=== PATIENT | female | born 1970 | race Caucasian/White ===

== ENCOUNTER 2017-12-06 06:46 | Day surgery (SDC) | payer BC ==
[~2017-12-06 06:46] MED LIST: Midazolam 1 MG/ML 2 ML SDV ONE; fentaNYL 100 MCG/2 ML SDV ONE
[2017-12-06] MEDS ORDERED: Midazolam 1 MG/ML 2 ML SDV IV ONE ×4 (06:47→08:19)
[2017-12-06] MEDS ORDERED: fentaNYL 100 MCG/2 ML SDV IV ONE ×3 (06:47→08:17)
[2017-12-06] MEDS ORDERED: Dextrose 5%-0.45% NaCl 1,000 ML IV SCH (07:15)
--- NOTE | 2017-12-06 08:59 | OR ---
DATE: 12/06/2017 PROCEDURES: Esophagogastroduodenoscopy and multiple pinch biopsies. INSTRUMENT USED: GIF-H180 Olympus video panendoscope. PREMEDICATIONS: No oral topical anesthesia used. Fentanyl 100 mcg intravenous, Versed 2 mg intravenous. Nasal O2 cannula. The procedure was done under pulse oximetry, BP recording, and process owner. INDICATION: The patient with longstanding heartburn, on PPI therapy. DESCRIPTION OF PROCEDURE: Esophagogastroduodenoscopy is performed for detection of any active erosive lesions. Martinez esophagus and/or malignancy also under consideration. H. pylori status to be determined. Endoscopic hemostasis therapy if needed. The scope was passed with ease. Adequate visualization of the esophagus was made from proximal to distal areas. No upper esophageal lesions identified. No distal esophageal stricture. No uphill or downhill esophageal varices. No Nirmala-Hart tear. No evidence of erosive esophagitis by [place] criteria. No esophageal polyp or tumor mass identified. Z-line was noted at around 34 cm distal to the oral verge. Four-quadrant biopsies were taken and sent for any histopathologic evidence of intestinal metaplasia. No proximal gastric varices noted. Gastric fundus examination by retroflexion showed no polypoid lesions. No gastric ulcer, malignant mass, or vascular ectasia identified. Duodenal bulb showed no ulcer. Visualized second part of the duodenum was unremarkable. Multiple pinch biopsies were taken from the gastric antrum and proximal body and sent for PyloriTek test for H. pylori and histopathology. No bleeding was noted from any of the visualized areas at the completion of examination. Photographs were taken of the duodenal bulb, gastric antrum, fundus, and distal esophagus. IMPRESSION: Columnar-lined distal esophagus. The patient tolerated the procedure well. [facility] /[id number]
[2017-12-06 12:11] VITALS: BP 117/79
== END 2017-12-06 10:30 | disposition home or self-care (01) ==
LOC: DL.ENDO 06:46
PROVIDERS: ATTEND Internal Medicine Gastroenterology
DX: R12 Heartburn (principal); K29.70 Gastritis, unspecified, without bleeding; K20.9 Esophagitis, unspecified; I12.9 Hypertensive chronic kidney disease with stage 1 through stage 4 chronic kidney disease, or unspecified chronic kidney disease; E11.22 Type 2 diabetes mellitus with diabetic chronic kidney disease; N18.9 Chronic kidney disease, unspecified; E66.09 Other obesity due to excess calories; E11.21 Type 2 diabetes mellitus with diabetic nephropathy; E78.5 Hyperlipidemia, unspecified; Z79.82 Long term (current) use of aspirin; Z79.899 Other long term (current) drug therapy; Z88.0 Allergy status to penicillin; Z88.1 Allergy status to other antibiotic agents; Z80.0 Family history of malignant neoplasm of digestive organs
CPT/HCPCS: 43239; 87077; J2250; J3010; J7042

== ENCOUNTER 2017-12-10 05:48 | Day surgery (SDC) | payer BC ==
[2017-12-10] MEDS ORDERED: Midazolam 1 MG/ML 2 ML SDV IV ONE ×9 (05:49→07:28)
[2017-12-10] MEDS ORDERED: fentaNYL 100 MCG/2 ML SDV IV ONE ×5 (05:49→07:23)
[2017-12-10] MEDS ORDERED: Sodium Chloride 0.9% 10 ML Syringe FLUSH PRN (06:00)
[2017-12-10] MEDS ORDERED: Dextrose 5%-0.45% NaCl 1,000 ML IV SCH (06:00)
[2017-12-10] MEDS ORDERED: fentaNYL 100 MCG/2 ML SDV ONE (06:15)
[2017-12-10] MEDS ORDERED: Midazolam 1 MG/ML 2 ML SDV ONE (06:15)
--- NOTE | 2017-12-10 08:39 | OR ---
DATE: 12/10/2017 PROCEDURE: Total colonoscopy. INSTRUMENT USED: CF-H180AL Olympus video colonoscope. PREMEDICATIONS: Fentanyl 150 mcg intravenous, Versed 5 mg intravenous. The procedure was done under pulse oximetry, BP recording, and senior housekeeper. INDICATION: The patient with high-risk family history for colon cancer. Colonoscopic examination is done for detection of any polypoid lesions and removal. Endoscopic hemostasis therapy if needed. DESCRIPTION OF PROCEDURE: Initial rectal exam was unremarkable. Rigid anoscopy was normal. The colonoscope was passed with ease. Numerous scattered diverticula were noted in the distal left colon, some wide mouthed. Photographs were taken. The colon was found to be tortuous and redundant. The examination was a bit prolonged. The scope was passed up to the ileocecal area. Photographs were taken of the normal-appearing cecum, identified by landmarks of appendiceal orifice and double-bulged ileocecal folds. No bleeding was detected from any of the areas at the commencement of the examination. The bowel preparation was found to be adequate. No stricture. No vascular ectasia. No large isolated ulcerations seen. No evidence of diffuse inflammatory bowel disease in the form of friability, contact bleeding, or ulcerations. No polyp or tumor mass identified. Probing the proximal sides of folds and flexures using adequate distention and clearing up the stool material, withdrawal of the scope was made. [id number] time over 6 minutes. No bleeding was noted from any of the visualized areas at the completion of examination. IMPRESSION: Diverticulosis. The patient tolerated the procedure well. [facility] /[id number]
[2017-12-10 08:47] LABS: ANION GAP 13.8; CHLORIDE,CL 108 mmol/L (101-111); SODIUM,NA 140 mmol/L (135-145)
--- NOTE | 2017-12-10 09:00 | LETTER ---
12/10/2017 Anca Mejia MD [address] [address] RE: BRIGHT RAY RENEE HODAN : [address] Mejia: Ms. Renee Neffedson had colonoscopic examination done this morning and she tolerated the procedure well. I herewith send a copy of the endoscopy note and photographs for your review. Thank you. Sincerely, [facility] /[id number]
--- NOTE | 2017-12-10 09:45 | PN ---
DATE: 12/10/2017 SUBJECTIVE: Has upper anterior chest pain with some radiation to the back as well as has some hoarseness. Feels a bit full in her throat. Denies any increasing shortness of breath. No headache. No dizziness. Denies any abdominal pain. OBJECTIVE: VITAL SIGNS: Stable. GENERAL: Alert and oriented. Not short of breath at rest. Some fullness noted around the neck on both sides. NECK: Supple. LUNGS: No adventitious sounds heard. HEART: S1 and S2, regular. ABDOMEN: Obese and soft. No areas of tenderness elicited. Bowel sounds are active. PLAN: CBC, CMP, troponin, and EKG. Discussed with Dr. Koo at the emergency room as to further evaluation and management. The patient acceptable. She is transferred stable to the emergency room for further evaluation and management. IMPRESSION: 1. History of systemic lupus erythematosus. 2. Colonic diverticulosis. 3. Chest pain, etiology to be determined. [facility] /[id number]
--- NOTE | 2017-12-10 09:54 | PN ---
DATE: 12/10/2017 TIME: 9:00 a.m. SUBJECTIVE: Continues to have some fullness in the neck and related chest pain. OBJECTIVE: Vital Signs: Stable. General: Alert and oriented. Neck: Crepitus noted in the neck. Lungs: Diminished breath sounds. Heart: S1 and S2, regular. Abdomen: Soft. No significant tenderness elicited. INVESTIGATIONS: Chest x-ray shows free air under the diaphragm. PLAN: Discussed with the patient, family member, as well as Dr. Koo in the emergency room. Has significant diverticulosis with deformity involving the left colon, and perforation under consideration. The patient informed of intubation and stabilization and transferred to [facility] for further specific management. The patient acceptable. [facility] /[id number]
[2017-12-10 11:06] VITALS: BP 134/89
--- NOTE | 2017-12-11 12:31 | EKG ---
12/10/2017 - BRIGHT RAYRENEE HODAN - TIME: 8:21 am. FINDINGS: EKG shows a heart rate of 73 beats per minute, sinus rhythm. [facility] /[id number]
== END 2017-12-10 08:30 | disposition other institution (70) ==
LOC: DL.ENDO 05:48
PROVIDERS: ATTEND Internal Medicine Gastroenterology
DX: Z12.11 Encounter for screening for malignant neoplasm of colon (principal); K57.30 Diverticulosis of large intestine without perforation or abscess without bleeding; E66.09 Other obesity due to excess calories; I12.9 Hypertensive chronic kidney disease with stage 1 through stage 4 chronic kidney disease, or unspecified chronic kidney disease; E11.22 Type 2 diabetes mellitus with diabetic chronic kidney disease; N18.9 Chronic kidney disease, unspecified; E78.5 Hyperlipidemia, unspecified; R80.9 Proteinuria, unspecified; N02.8 Recurrent and persistent hematuria with other morphologic changes; Z79.82 Long term (current) use of aspirin; Z88.0 Allergy status to penicillin; Z88.1 Allergy status to other antibiotic agents; Z86.010 Personal history of colon polyps; Z80.0 Family history of malignant neoplasm of digestive organs
CPT/HCPCS: 36415; 45378; 80053; 82962; 84484; 85025; 93005; J2250; J3010; J7042

== ENCOUNTER 2017-12-10 08:33 | Emergency (ER) | payer BC ==
[2017-12-10] MEDS ORDERED: Succinylcholine 200 MG/10 ML MDV IV ONE (08:34)
[2017-12-10] MEDS ORDERED: Propofol 200 MG/20 ML SDV IV ONE (08:34)
[2017-12-10] MEDS ORDERED: fentaNYL 100 MCG/2 ML SDV IV ONE (08:34)
[2017-12-10] MEDS ORDERED: Rocuronium 50 MG/5 ML Vial IV ONE (08:34)
--- NOTE | 2017-12-10 08:38 | EDM.PDOC ---
ED HPI GENERAL MEDICAL PROBLEM - General Chief Complaint: Cardiovascular Problem Stated Complaint: FROM SDS, CHEST PAINS Time Seen by Provider: 12/10/17 08:35 Source of Information: Reports: Patient, Family, Old Records, Provider (Dr. Sanders), RN, RN Notes Reviewed History Limitations: Reports: No Limitations - History of Present Illness INITIAL COMMENTS - FREE TEXT/NARRATIVE: Pt brought from same day surgery to ER at request of Dr. Sanders due to onset of chest pain, neck swelling, soreness of breath, and sensation that her " throat is closing" Pt is awake, alert, and conversant, but with a high pitched, strained, nasal sounding voice. Onset: Today Duration: Constant, Getting Worse Location: Reports: Neck, Chest, Abdomen Quality: Reports: Pressure, Sharp Severity: Severe Improves with: Reports: None Worsens with: Reports: None Context: Reports: Other (suspected bowel perf. during colonoscopy) Associated Symptoms: Reports: No Other Symptoms Chest Pain Score (Numeric/FACES): 10 - Related Data Allergies Allergy/AdvReac Type Severity Reaction Status Date / Time erythromycin lactobionate Allergy Nausea Verified 12/10/17 08:40 [From Erythrocin] Penicillins Allergy Rash Verified 12/10/17 08:40 Home Meds: Home Meds predniSONE [Jazzy] 4 mg PO ASDIRECTED 11/24/14 [History] Rosuvastatin [Crestor] 20 mg PO DAILY 11/25/14 [History] Aspirin [Halfprin] 81 mg PO BEDTIME 01/12/16 [History] Fluticasone Propionate [Flonase] 1 spray INH ASDIRECTED 12/03/17 [History] Levonorgestrel [Mirena] 1 insert IU ATDISCHARGE 12/03/17 [History] Omeprazole [Prilosec] 40 mg PO DAILY 12/03/17 [History] Pioglitazone HCl 1 tab PO DAILY 12/03/17 [History] Sodium Bicarbonate 1 tab PO ASDIRECTED 12/03/17 [History] cycloSPORINE [Cyclosporine] 2 tab PO BID 12/03/17 [History] Past Medical History HEENT History: Reports: Sinusitis Other HEENT History: 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 History: Reports: Endometriosis, Spontaneous Other SCALE INSTALLER History: HAS IUD Musculoskeletal History: Reports: SLE Other Musculoskeletal History: LUPUS IN REMISSION Neurological History: Reports: None Psychiatric History: Reports: None Endocrine/Metabolic History: Reports: None Hematologic History: Reports: Anemia, Iron Deficiency Immunologic History: Reports: SLE Other Immunologic History: in remission for 11 years (had for 8 years) Oncologic (Cancer) History: Reports: None Dermatologic History: Reports: Cellulitis Other Dermatologic History: esinophyllic cellulitis - Infectious Disease History Infectious Disease History: Reports: Chicken Pox, Shingles - Past Surgical History Head Surgeries/Procedures: Reports: None HEENT Surgical History: Reports: Adenoidectomy, Cataract Surgery, Eye Surgery, Tonsillectomy, Other (See Below) Other HEENT Surgeries/Procedures: corneal transplant Cardiovascular Surgical History: Reports: None Respiratory Surgical History: Reports: None GI Surgical History: Reports: Colonoscopy, Hernia, Inguinal Female Surgical History: Reports: Other (See Below) Other Female Surgeries/Procedures: kidney biopsy Social & Family History - Family History Family Medical History: Noncontributory - Caffeine Use Caffeine Use: Reports: Tea Other Caffeine Use: 16. oz - Living Situation & Occupation Living situation: Reports: with Family ED ROS GENERAL - Review of Systems Review Of Systems: ROS reveals no pertinent complaints other than HPI. ED EXAM, GENERAL - Physical Exam Exam: See Below Exam Limited By: No Limitations General Appearance: Alert, Anxious, Mild Distress, Obese Eye Exam: Bilateral Eye: Normal Inspection Ears: Hearing Grossly Normal Nose: Normal Inspection, Normal Mucosa, No Blood Throat/Mouth: Normal Lips, Normal Teeth, Normal Gums, Other (obese pt with small oral airway, abnormal high pitched and weak voice) Neck: Other (extensive subcutaneous emphysema of the neck to the level of the manibular face and inferior ears B/L) Respiratory/Chest: No Accessory Muscle Use, Chest Non-Tender, Decreased Breath Sounds, Crackles, Stridor (mild) Cardiovascular: Regular Rate, Rhythm GI/Abdominal: Soft, Non-Tender, No Distention, Abnormal Bowel Sounds (hypoactive ) (Female) Exam: Deferred Rectal (Female) Exam: Deferred Back Exam: Normal Inspection Extremities: Normal Inspection Neurological: Alert, Oriented, CN II-XII Intact, Normal Cognition, No Motor/ Sensory Deficits Psychiatric: Anxious Skin Exam: Warm, Dry, Intact, Normal Color, No Rash EKG INTERPRETATION EKG Date: 12/10/17 Time: 08:21 ([facility] Rhythm: Other (SR) Rate (Beats/Min): 73 [place]: LAD-Left [place] Deviation (borderline) P-Wave: Present QRS: Normal ST-T: Normal QT: Normal Comparison: NA - No Prior EKG Course - Vital Signs Last Recorded V/S: Last Vital Signs Temp 36.6 C 12/10/17 08:38 Pulse 87 12/10/17 08:38 Resp 18 12/10/17 08:38 BP 143/67 H 12/10/17 08:38 Pulse Ox 98 12/10/17 08:38 - Orders/Labs/Meds Orders: Active Orders 24 hr Category Date Time Status EKG 12 Lead [EKG Documentation Completion] [RC] STAT Care 12/10/17 08:51 Inactive Insert Bowie Catheter [Insert Urinary Catheter] [OM.PC] Care 12/10/17 09:52 Ordered Stat Urinary Catheter Assessment [RC] ASDIRECTED Care 12/10/17 09:53 Active Chest 1V Frontal [CR] Stat Exams 12/10/17 09:52 Ordered Propofol [Diprivan 100 ML] 100 ml Med 12/10/17 10:00 Active IV .TITRATE Desired Level of Sedation (RASS) [AST] Click To Edit Ot 12/10/17 09:53 Ordered Medication Orders Propofol (Diprivan 100 Ml) 100 mls @ 2.014 mls/hr IV .TITRATE DEONTE; Protocol Labs: Lab results from Same Day Surg. from this morning reviewed by me. Meds: Medications Generic Name Dose Route Start Last Admin Trade Name Freq PRN Reason Stop Dose Admin Propofol 100 mls @ 2.014 mls/hr 12/10/17 10:00 Diprivan 100 Ml IV .TITRATE DEONTE Protocol 5 MCG/KG/MIN Discontinued Medications Generic Name Dose Route Start Last Admin Trade Name Freq PRN Reason Stop Dose Admin Dexamethasone Confirm 12/10/17 09:47 Dexamethasone Administered 12/10/17 09:48 Dose 8 mg .ROUTE .STK-MED ONE Fentanyl Confirm 12/10/17 09:27 Sublimaze Administered 12/10/17 09:28 Dose 100 mcg .ROUTE .STK-MED ONE Iopamidol 100 ml 12/10/17 09:01 Isovue-300 (61%) IVPUSH 12/10/17 09:02 ONETIME ONE Midazolam HCl Confirm 12/10/17 09:27 12/10/17 09:45 Versed 1 Mg/Ml Administered 12/10/17 09:28 2 mg Dose Administration 2 mg .ROUTE .STK-MED ONE Ondansetron HCl 4 mg 12/10/17 09:37 12/10/17 09:47 Zofran IV 12/10/17 09:38 4 mg ONETIME ONE Administration - Radiology Interpretation Free Text/Narrative:: Portable CXR: extensive free intraperitoneal air and subcutaneous air at B/L flanks, and mediastinum into the neck. See Rad. report. Post intubation CXR: with ET tube apprx. 2cm above level of the alis. OG tube in stomach. - Re-Assessments/Exams Free Text/Narrative Re-Assessment/Exam: 12/10/17 Pt's airway is compromised and worsening. I feel it is necessary to intubate the pt to preserve the airway prior to transferring the pt to [facility] for surgical evaluation and access to a higher level of care. Pt intubated w/RSI with 6.5F ET tube on first attempt without complication. Departure - Departure Time of Disposition: 10:04 Disposition: DC/Tfer to Acute Hospital 02 Condition: Critical Clinical Impression: Perforated bowel, Pneumomediastinum, Compromised airway Surgical complication Qualifiers: Surgical complication system/body Area: digestive system Surgical complication type: puncture, accidental Procedure type: digestive system Qualified Code(s): K91.71 - Accidental puncture and laceration of a digestive system organ or structure during a digestive system procedure - Discharge Information Referrals: PCP,Unobtain [Primary Care Provider] - Forms: ED Department Discharge, Interfacility Transfer EMTALA - My Orders Last 24 Hours: My Active Orders 12/10/17 08:51 EKG 12 Lead [EKG Documentation Completion] [RC] STAT 12/10/17 09:52 Insert Bowie Catheter [Insert Urinary Catheter] [OM.PC] Stat Chest 1V Frontal [CR] Stat 12/10/17 09:53 Urinary Catheter Assessment [RC] ASDIRECTED Desired Level of Sedation (RASS) [AST] Click To Edit 12/10/17 10:00 Propofol [Diprivan 100 ML] 100 ml IV .TITRATE - Assessment/Plan Last 24 Hours: My Active Orders 12/10/17 08:51 EKG 12 Lead [EKG Documentation Completion] [RC] STAT 12/10/17 09:52 Insert Bowie Catheter [Insert Urinary Catheter] [OM.PC] Stat Chest 1V Frontal [CR] Stat 12/10/17 09:53 Urinary Catheter Assessment [RC] ASDIRECTED Desired Level of Sedation (RASS) [AST] Click To Edit 12/10/17 10:00 Propofol [Diprivan 100 ML] 100 ml IV .TITRATE
[2017-12-10 08:39] VITALS: BP 143/67
[2017-12-10] MEDS ORDERED: Iopamidol 612 MG/ML 100 ML Bottle IVPUSH ONE (09:01)
--- NOTE | 2017-12-10 09:12 | CR ---
Clinical history: 47-year-old female abdominal/chest pain and "air in the neck" who is status post co lonoscopy this a.m. Interpretation: AP portable chest film abnormal. Extensive free intraperitoneal air and air identified in the subcutaneous tissues both flanks as well as in the mediastinum extending into the supraclavicular regions of the neck. Normal cardiac silhouette without cephalization of vascular flow signs of alveolar edema or dependent effusion. Some patchy new bibasal or atelectasis when compared to 12 January 2016 exam. CONCLUSION: Acute perforation of the colon. Critical exam results called immediately to the emergency department provider (Dr. Koo) at 0915 ho urs.
[2017-12-10] MEDS ORDERED: fentaNYL 100 MCG/2 ML SDV ONE (09:27)
[2017-12-10] MEDS ORDERED: Midazolam 1 MG/ML 2 ML SDV ONE (09:27)
[2017-12-10] MEDS ORDERED: Ondansetron 4 MG/2 ML SDV IV ONE (09:37)
[2017-12-10] MEDS ORDERED: Dexamethasone 4 MG/ML SDV ONE (09:47)
[2017-12-10] MEDS ORDERED: Dexamethasone 4 MG/ML SDV IVPUSH ONE (09:49)
--- NOTE | 2017-12-10 10:25 | PCM.SN ---
- Free Text/Narrative Note: Intubation. ER provider requesting Pt be intubated for transfer to [facility] due to free air in abdomen and mediastinum. Pt w increasing neck circumference. Procedure explained to Pt and Pt's . Consent obtained. Pt NPO x 48 hours , previously medicated this AM with 4 mg of versed and 100 mcg fentanyl for colonoscopy. Pre ox w ambu bag, Pt medicated at 0945 with 2 mg versed, 100 mcg fentanyl, and 5 mg of zemuron. 140 mg of propofol and 70 mg of anectine Glidescope used 3 Mac blade 6.5 ETT advanced through cords , OG placed. Tube secured at 20 cm at lip. PCXR taken and placement confirmed. Pt medicated w 30 mg of zemuron. Report to [employer] [facility] care . Procedure time 0940 to 1030
--- NOTE | 2017-12-10 11:38 | CR ---
Clinical history: 47-year-old female "postintubation". Interpretation: Midline endotracheal tube tip identified distally at the level of mid T4 vertebral stephen dy (approximately 2 cm proximal to the alis), directed to the right of midline. No associated signs of lobar collapse. Patchy right middle lobe and lingular atelectasis. Note: Large volume of air extending through the mediastinum into the supraclavicular soft tissues of the neck, bilaterally. Large volume of intraperitoneal air and subcutaneous air along both flanks. Normal cardiac silhouette without alveolar edema or dependent effusion.
== END 2017-12-10 10:16 ==
LOC: DL.ED 08:33
DX: K91.71 Accidental puncture and laceration of a digestive system organ or structure during a digestive system procedure (principal); J98.2 Interstitial emphysema; K63.1 Perforation of intestine (nontraumatic); E78.00 Pure hypercholesterolemia, unspecified; I10 Essential (primary) hypertension; K21.9 Gastro-esophageal reflux disease without esophagitis; Z88.1 Allergy status to other antibiotic agents; Z88.0 Allergy status to penicillin; Z79.899 Other long term (current) drug therapy; Z79.82 Long term (current) use of aspirin
CPT/HCPCS: 31500; 71045; 96374; 96375; 99285; J0330; J1100; J2250; J2405; J2704; J3010

== ENCOUNTER 2020-03-14 21:16 | Emergency (ER) | payer BC ==
[2020-03-14 21:26] VITALS: BP 152/78; PULSE 98
[2020-03-14 22:11] LABS: ANION GAP 19.5 mEq/L (7-13)
[2020-03-14] MEDS ORDERED: Ondansetron 4 MG/2 ML SDV IVPUSH ONE ×2 (22:12→23:53)
[2020-03-14] MEDS ORDERED: Morphine 2 MG/ML SYRINGE IVPUSH ONE (22:12)
--- NOTE | 2020-03-14 22:16 | EDM.PDOC ---
ED HPI GENERAL MEDICAL PROBLEM - General Chief Complaint: Abdominal Pain Stated Complaint: SEVERE STOMACH PAIN Time Seen by Provider: 03/14/20 22:05 Source of Information: Reports: Patient History Limitations: Reports: No Limitations - History of Present Illness INITIAL COMMENTS - FREE TEXT/NARRATIVE: This 49 yo female patient reports to the ED with increased intermittent abdom inal pain. The patient reports her symptoms started today at about 1300 and have been getting worse since the onset. The patient reports she has a history of numerous abdominal surgeries due to a perforation during a colonoscopy. The patient reports she also has a history of stage 3 kidney disease (sees Dr. oGnzales). Onset: Today Onset Date: 03/14/20 Onset Time: 13:00 Duration: Getting Worse, Intermittent Location: Reports: Abdomen (near umbilicus) Quality: Reports: Ache, Sharp, Stabbing Severity: Severe Improves with: Reports: None Worsens with: Reports: None Context: Reports: Other Associated Symptoms: Reports: No Other Symptoms Abdomen Pain Score (Numeric/FACES): 4 - Related Data Allergies Allergy/AdvReac Type Severity Reaction Status Date / Time erythromycin lactobionate Allergy Nausea Verified 03/14/20 21:25 [From Erythrocin] Penicillins Allergy Rash Verified 03/14/20 21:25 Home Meds: Home Meds predniSONE [Jazzy] 4 mg PO ASDIRECTED 11/24/14 [History] Rosuvastatin [Crestor] 20 mg PO DAILY 11/25/14 [History] Aspirin [Halfprin] 81 mg PO BEDTIME 01/12/16 [History] Fluticasone Propionate [Flonase] 1 spray INH ASDIRECTED 12/03/17 [History] Levonorgestrel [Mirena] 1 insert IU ATDISCHARGE 12/03/17 [History] Omeprazole [Prilosec] 40 mg PO DAILY 12/03/17 [History] Pioglitazone HCl 1 tab PO DAILY 12/03/17 [History] cycloSPORINE [Cyclosporine] 2 tab PO BID 12/03/17 [History] clindamycin HCL [Cleocin HCl] 150 mg PO TID 05/22/18 [History] Past Medical History HEENT History: Reports: Sinusitis Other HEENT History: 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 History: HAS IUD Musculoskeletal History: Reports: SLE Other Musculoskeletal History: LUPUS IN REMISSION Neurological History: Reports: None Psychiatric History: Reports: None Endocrine/Metabolic History: Reports: None Hematologic History: Reports: Anemia, Iron Deficiency Immunologic History: Reports: SLE Other Immunologic History: in remission for 11 years (had for 8 years) Oncologic (Cancer) History: Reports: None Dermatologic History: Reports: Cellulitis Other Dermatologic History: esinophyllic cellulitis - Infectious Disease History Infectious Disease History: Reports: Chicken Pox, Shingles - Past Surgical History Head Surgeries/Procedures: Reports: None HEENT Surgical History: Reports: Adenoidectomy, Cataract Surgery, Eye Surgery, Tonsillectomy, Other (See Below) Cardiovascular Surgical History: Reports: None Respiratory Surgical History: Reports: None GI Surgical History: Reports: Colonoscopy, Hernia, Inguinal Female Surgical History: Reports: Other (See Below) Other Female Surgeries/Procedures: kidney biopsy Social & Family History - Family History Family Medical History: Noncontributory - Tobacco Use Smoking Status *Q: Never Smoker Second Hand Smoke Exposure: No - Caffeine Use Caffeine Use: Reports: Tea Other Caffeine Use: 16. oz - Recreational Drug Use Recreational Drug Use: No - Living Situation & Occupation Living situation: Reports: with Family ED ROS GENERAL - Review of Systems Review Of Systems: Comprehensive ROS is negative, except as noted in HPI. ED EXAM, GI/ABD - Physical Exam Exam: See Below Exam Limited By: No Limitations General Appearance: Alert, WD/WN, Moderate Distress Eyes: Bilateral: Normal Appearance, EOMI Ears: Normal External Exam, Normal Canal, Hearing Grossly Normal, Normal TMs Nose: Normal Inspection, Normal Mucosa, No Blood Throat/Mouth: Normal Inspection, Normal Lips, Normal Teeth, Normal Gums, Normal Oropharynx, Normal Voice, No Airway Compromise Head: Atraumatic, Normocephalic Neck: Normal Inspection, Supple, Non-Tender, Full Range of Motion Respiratory/Chest: No Respiratory Distress, Lungs Clear, Normal Breath Sounds, No Accessory Muscle Use, Chest Non-Tender Cardiovascular: Normal Peripheral Pulses, Regular Rate, Rhythm, No Edema, No Gallop, No JVD, No Murmur, No Rub GI/Abdominal Exam: Normal Bowel Sounds, No Organomegaly, No Distention, No Abnormal Bruit, No Mass, Pelvis Stable, Tender (lower abdomen) (Female) Exam: Deferred Rectal (Female) Exam: Deferred Back Exam: Normal Inspection, Full Range of Motion, NT Extremities: Normal Inspection, Normal Range of Motion, Non-Tender, Normal Capillary Refill, No Pedal Edema Neurological: Alert, Oriented, CN II-XII Intact, Normal Cognition, Normal Gait, Normal Reflexes, No Motor/Sensory Deficits Psychiatric: Normal Affect, Normal Mood Skin Exam: Warm, Dry, Intact, Normal Color, No Rash Lymphatic: No Adenopathy Course - Vital Signs Last Recorded V/S: Last Vital Signs Temp 36.4 C 03/14/20 21:22 Pulse 98 03/14/20 21:22 Resp 20 03/14/20 21:22 BP 152/78 H 03/14/20 21:22 Pulse Ox 99 03/14/20 21:22 - Orders/Labs/Meds Orders: Active Orders 24 hr Category Date Time Status Gastrointestinal Tube Mgmt [RC] ASDIRECTED Care 03/14/20 23:39 Active CULTURE URINE [RM] Urgent Lab 03/14/20 23:28 Received Morphine Med 03/15/20 00:21 Once 2 mg IVPUSH ONETIME ONE NG [Nasogastric Orogastric Tube Insertion] [OM.PC] Oth 03/14/20 23:39 Ordered Routine Labs: Laboratory Tests 03/14/20 03/14/20 03/14/20 Range/Units 21:45 21:45 21:45 WBC 12.9 H (5.0-10.0) 10^3/uL RBC 3.90 L (4.2-5.4) 10^6/uL Hgb 11.7 L (12.0-16.0) g/dL Hct 36.2 L (37.0-47.0) % MCV 92.8 D (80-100) fL MCH 30.0 (27.0-34.0) pg MCHC 32.3 L (33.0-35.0) g/dL Plt Count 305 (150-450) 10^3/uL Neut % (Auto) 71.4 (42.2-75.2) % Lymph % (Auto) 16.9 L (20.5-50.1) % [place] % (Auto) 9.8 H (2-8) % Eos % (Auto) 1.5 (1.0-3.0) % Baso % (Auto) 0.4 (0.0-1.0) % Sodium 137 (136-145) mmol/L Potassium 3.5 (3.5-5.1) mmol/L Chloride 98 (98-107) mmol/L Carbon Dioxide 23 (21-32) mmol/L Anion Gap 19.5 H (7-13) mEq/L BUN 28 H (7-18) mg/dL Creatinine 1.81 H (0.55-1.02) mg/dL Est Cr Clr Drug Dosing 28.37 mL/min Estimated GFR (MDRD) 30 BUN/Creatinine Ratio 15.5 (No establ ref range) Glucose 142 H (74-99) mg/dL Lactic Acid 1.5 (0.4-2.0) mmol/L Calcium 9.7 (8.5-10.1) mg/dL Total Bilirubin 0.4 (0.2-1.0) mg/dL AST 21 (15-37) U/L ALT 30 (14-59) U/L Alkaline Phosphatase 69 (46-116) U/L Total Protein 8.4 H (6.4-8.2) g/dL Albumin 4.2 (3.4-5.0) g/dL Globulin 4.2 Albumin/Globulin Ratio 1.0 Urine Color (YELLOW) Urine Appearance (CLEAR) Urine pH (5.0-9.0) Ur Specific [place] (1.005-1.030) Urine Protein (NEGATIVE) Urine Glucose (UA) (NEGATIVE) Urine Ketones (NEGATIVE) Urine Occult Blood (NEGATIVE) Urine Nitrite (NEGATIVE) Urine Bilirubin (NEGATIVE) Urine Urobilinogen (0.2-1.0) mg/dL Ur Leukocyte Esterase (NEGATIVE) Urine RBC /HPF Urine WBC (0-5/HPF) /HPF Ur Epithelial Cells (NOT SEEN) /HPF Amorphous Sediment (NOT SEEN) /HPF Urine Bacteria (0-FEW/HPF) /HPF Urine Mucus (NOT SEEN) /LPF 03/14/20 Range/Units 23:28 WBC (5.0-10.0) 10^3/uL RBC (4.2-5.4) 10^6/uL Hgb (12.0-16.0) g/dL Hct (37.0-47.0) % MCV (80-100) fL MCH (27.0-34.0) pg MCHC (33.0-35.0) g/dL Plt Count (150-450) 10^3/uL Neut % (Auto) (42.2-75.2) % Lymph % (Auto) (20.5-50.1) % [place] % (Auto) (2-8) % Eos % (Auto) (1.0-3.0) % Baso % (Auto) (0.0-1.0) % Sodium (136-145) mmol/L Potassium (3.5-5.1) mmol/L Chloride (98-107) mmol/L Carbon Dioxide (21-32) mmol/L Anion Gap (7-13) mEq/L BUN (7-18) mg/dL Creatinine (0.55-1.02) mg/dL Est Cr Clr Drug Dosing mL/min Estimated GFR (MDRD) BUN/Creatinine Ratio (No establ ref range) Glucose (74-99) mg/dL Lactic Acid (0.4-2.0) mmol/L Calcium (8.5-10.1) mg/dL Total Bilirubin (0.2-1.0) mg/dL AST (15-37) U/L ALT (14-59) U/L Alkaline Phosphatase (46-116) U/L Total Protein (6.4-8.2) g/dL Albumin (3.4-5.0) g/dL Globulin Albumin/Globulin Ratio Urine Color Yellow (YELLOW) Urine Appearance Clear (CLEAR) Urine pH 5.5 (5.0-9.0) Ur Specific [place] 1.010 (1.005-1.030) Urine Protein Trace H (NEGATIVE) Urine Glucose (UA) Negative (NEGATIVE) Urine Ketones Negative (NEGATIVE) Urine Occult Blood Trace-intact H (NEGATIVE) Urine Nitrite Negative (NEGATIVE) Urine Bilirubin Negative (NEGATIVE) Urine Urobilinogen 0.2 (0.2-1.0) mg/dL Ur Leukocyte Esterase Trace H (NEGATIVE) Urine RBC 0-5 /HPF Urine WBC 10-20 H (0-5/HPF) /HPF Ur Epithelial Cells Few (NOT SEEN) /HPF Amorphous Sediment Few (NOT SEEN) /HPF Urine Bacteria Few (0-FEW/HPF) /HPF Urine Mucus Rare (NOT SEEN) /LPF Meds: Medications Discontinued Medications Generic Name Dose Route Start Last Admin Trade Name Freddieq PRN Reason Stop Dose Admin Morphine Sulfate 2 mg 03/14/20 22:12 03/14/20 22:20 Morphine IVPUSH 03/14/20 22:13 2 mg ONETIME ONE Administration Ondansetron HCl 4 mg 03/14/20 22:12 03/14/20 22:20 Zofran IVPUSH 03/14/20 22:13 4 mg ONETIME ONE Administration Ondansetron HCl 4 mg 03/14/20 23:53 03/15/20 00:01 Zofran IVPUSH 03/14/20 23:54 4 mg ONETIME ONE Administration Departure - Departure Time of Disposition: 00:22 Disposition: DC/Tfer to Acute Hospital 02 Condition: Fair Clinical Impression: Small bowel obstruction - Discharge Information *PRESCRIPTION DRUG MONITORING PROGRAM REVIEWED*: Not Applicable *COPY OF PRESCRIPTION DRUG MONITORING REPORT IN PATIENT SAVANNA: Not Applicable Forms: Interfacility Transfer EMTALA Care Plan Goals: Discussed the patient's history, examination, lab and CT results with Dr. Todd. Dr. Todd accepted the patient for continued evaluation and management as an inpatient at [facility]. The patient will be transported by [facility]. Sepsis Event Note (ED) - Evaluation Sepsis Screening Result: No Definite Risk - Focused Exam Vital Signs: Vital Signs Temp Pulse Resp BP Pulse Ox 03/14/20 21:22 36.4 C 98 20 152/78 H 99 - My Orders Last 24 Hours: My Active Orders 03/14/20 23:28 CULTURE URINE [RM] Urgent 03/14/20 23:39 Gastrointestinal Tube Mgmt [RC] ASDIRECTED NG [Nasogastric Orogastric Tube Insertion] [OM.PC] Routine 03/15/20 00:21 Morphine 2 mg IVPUSH ONETIME ONE - Assessment/Plan Last 24 Hours: My Active Orders 03/14/20 23:28 CULTURE URINE [RM] Urgent 03/14/20 23:39 Gastrointestinal Tube Mgmt [RC] ASDIRECTED NG [Nasogastric Orogastric Tube Insertion] [OM.PC] Routine 03/15/20 00:21 Morphine 2 mg IVPUSH ONETIME ONE
--- NOTE | 2020-03-14 23:21 | CT ---
PROCEDURE INFORMATION: Exam: CT Abdomen And Pelvis Without Contrast Exam date and time: 03/14/2020 10:34 PM Age: 49 years old Clinical indication: Other: Wbc 12.7, elevated bun/creat (chronic kidney disease stage 3) HX bowel perf. During colonoscopy with multiple surgical repairs due to sepsis; Prior surgery; Surgery date: 6+ months; Additional info: Lower abdominal pain TECHNIQUE: Imaging protocol: Computed tomography of the abdomen and pelvis without contrast. Radiation optimization: All CT scans at this facility use at least one of these dose optimization techniques: automated exposure control; mA and/or kV adjustment per patient size (includes targeted exams where dose is matched to clinical indication); or iterative reconstruction. COMPARISON: CT Abdomen Pelvis wo Cont 09/27/2018 4:48 PM FINDINGS: Lungs: Patchy scarring or atelectasis in the lung bases. Mild bronchiectasis in the posterior left lower lobe unchanged. Heart: Heart size normal. Mediastinal space: The visualized distal esophagus is normal. Liver: Normal size and contour. No mass lesions. No intrahepatic biliary ductal dilatation. Gallbladder and bile ducts: Normal. No calcified stones. No ductal dilation. Pancreas: Moderate pancreatic atrophy without acute abnormality. No pancreatic ductal dilatation. Spleen: Normal. No splenomegaly. Adrenals: Normal. No adrenal mass. Kidneys and ureters: No acute abnormalities. No hydronephrosis or hydroureter. No urinary tract stones are identified. Stomach and bowel: The stomach is grossly normal. 2.4 cm duodenal diverticulum noted. Dilated right lower quadrant small bowel measuring 3 cm maximum diameter with solid aerated stool content and mild surrounding fatty stranding in this region. This transitions to nondilated distal small bowel at the level of the small bowel anastomosis in the right lower quadrant, best appreciated on series 2, images 95-108. No evidence of perforation or abscess. Mild diverticulosis in the proximal transverse colon and distal descending colon. Sigmoid anastomosis without gross anastomotic complication. No signs of diverticulitis. Appendix: The appendix is normal in caliber and demonstrates no evidence of appendicitis. Intraperitoneal space: No free fluid or air. Vasculature: No acute process. No abdominal aortic aneurysm. Lymph nodes: No adenopathy. Urinary bladder: Unremarkable as visualized. Reproductive: IUD in the uterus, grossly well-positioned. 2.8 cm simple left ovarian cyst is unchanged from 09/27/2018. Bones/joints: No acute osseous abnormalities. Soft tissues: Soft tissue stranding in the right lower quadrant anterior subcutaneous fat , possibly prior hernia repair in this region. IMPRESSION: 1. There is evidence of small bowel obstruction with a transition point at the level of the small bowel anastomosis in the right lower quadrant. No evidence of perforation or abscess. 2. Additional non-emergent findings detailed above.
[2020-03-15] MEDS ORDERED: Morphine 2 MG/ML SYRINGE IVPUSH ONE (00:21)
== END 2020-03-15 01:20 ==
LOC: DL.ED 21:16
DX: K56.609 Unspecified intestinal obstruction, unspecified as to partial versus complete obstruction (principal); K21.9 Gastro-esophageal reflux disease without esophagitis; E78.00 Pure hypercholesterolemia, unspecified; I12.9 Hypertensive chronic kidney disease with stage 1 through stage 4 chronic kidney disease, or unspecified chronic kidney disease; N18.30 Chronic kidney disease, stage 3 unspecified; M32.9 Systemic lupus erythematosus, unspecified; Z88.1 Allergy status to other antibiotic agents; Z88.0 Allergy status to penicillin; Z79.82 Long term (current) use of aspirin; Z79.899 Other long term (current) drug therapy
CPT/HCPCS: 36415; 43752; 74176; 80053; 81001; 83605; 85025; 87086; 96374; 96375; 96376; 99285; J2270; J2405; 99284

== ENCOUNTER 2020-07-12 19:29 | Emergency (ER) | payer BC ==
[2020-07-12 19:39] VITALS: BP 134/76; PULSE 107
[2020-07-12 20:15] LABS: ANION GAP 18.8 mEq/L (7-13)
--- NOTE | 2020-07-12 22:04 | CT ---
PROCEDURE INFORMATION: Exam: CT Abdomen And Pelvis Without Contrast Exam date and time: 07/12/2020 9:40 PM Age: 49 years old Clinical indication: Other: Right sided pain; Additional info: Right flank pain radiates forward TECHNIQUE: Imaging protocol: Computed tomography of the abdomen and pelvis without contrast. Radiation optimization: All CT scans at this facility use at least one of these dose optimization techniques: automated exposure control; mA and/or kV adjustment per patient size (includes targeted exams where dose is matched to clinical indication); or iterative reconstruction. COMPARISON: CT Abdomen Pelvis wo Cont 03/14/2020 10:34 PM FINDINGS: The liver, spleen, pancreas, adrenals and kidneys appear unremarkable. There are no abdominal or pelvic masses. There are no abnormal fluid collections. No inflammatory changes are seen. There is no free air identified. The appendix is identified and appears unremarkable. The bowel gas pattern is normal. There are scattered large bowel diverticula. There is a duodenal diverticulum. The gallbladder appears unremarkable. The abdominal aorta is normal in caliber. There is a tiny umbilical hernia containing fat. There is a dominant follicle in the left ovary. IMPRESSION: No acute findings.
[2020-07-12] MEDS ORDERED: Ciprofloxacin 500 MG Tab PO ONE (22:10)
--- NOTE | 2020-07-12 22:13 | EDM.PDOC ---
ED HPI GENERAL MEDICAL PROBLEM - General Chief Complaint: Flank Pain Stated Complaint: SEVERE ABDOMINAL PAIN Time Seen by Provider: 07/12/20 19:30 Source of Information: Reports: Patient History Limitations: Reports: No Limitations - History of Present Illness INITIAL COMMENTS - FREE TEXT/NARRATIVE: ED with c/o right flank pain onset this afternoon, worse with deep breathing. BM today at 430, normal. No fever chills or vomiting. Tried tylenol, and soda without relief. Hx bowel obstruction in March, doesn't feel as bad. No noticing any bloating. No urinary symptoms. No prior hx of stones. - Related Data Allergies Allergy/AdvReac Type Severity Reaction Status Date / Time erythromycin lactobionate Allergy Nausea Verified 03/14/20 21:25 [From Erythrocin] Penicillins Allergy Rash Verified 03/14/20 21:25 Home Meds: Home Meds predniSONE [Jazzy] 4 mg PO ASDIRECTED 11/24/14 [History] Rosuvastatin [Crestor] 20 mg PO DAILY 11/25/14 [History] Aspirin [Halfprin] 81 mg PO BEDTIME 01/12/16 [History] Fluticasone Propionate [Flonase] 1 spray INH ASDIRECTED 12/03/17 [History] Levonorgestrel [Mirena] 1 insert IU ATDISCHARGE 12/03/17 [History] Omeprazole [Prilosec] 40 mg PO DAILY 12/03/17 [History] Pioglitazone HCl 1 tab PO DAILY 12/03/17 [History] cycloSPORINE [Cyclosporine] 2 tab PO BID 12/03/17 [History] clindamycin HCL [Cleocin HCl] 150 mg PO TID 05/22/18 [History] Past Medical History HEENT History: Reports: Sinusitis Other HEENT History: 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 Musculoskeletal History: Reports: SLE Other Musculoskeletal History: LUPUS IN REMISSION Neurological History: Reports: None Psychiatric History: Reports: None Endocrine/Metabolic History: Reports: None Hematologic History: Reports: Anemia, Iron Deficiency Immunologic History: Reports: SLE Other Immunologic History: in remission for 11 years (had for 8 years) Oncologic (Cancer) History: Reports: None Dermatologic History: Reports: Cellulitis Other Dermatologic History: esinophyllic cellulitis - Infectious Disease History Infectious Disease History: Reports: Chicken Pox, Shingles - Past Surgical History Head Surgeries/Procedures: Reports: None HEENT Surgical History: Reports: Adenoidectomy, Cataract Surgery, Eye Surgery, Tonsillectomy, Other (See Below) Other HEENT Surgeries/Procedures: corneal transplant Cardiovascular Surgical History: Reports: None Respiratory Surgical History: Reports: None GI Surgical History: Reports: Colonoscopy, Hernia, Inguinal Female Surgical History: Reports: Other (See Below) Other Female Surgeries/Procedures: kidney biopsy Social & Family History - Family History Family Medical History: No Pertinent Family History - Tobacco Use Tobacco Use Status *Q: Never Tobacco User Second Hand Smoke Exposure: No - Caffeine Use Caffeine Use: Reports: Tea Other Caffeine Use: 16. oz - Recreational Drug Use Recreational Drug Use: No - Living Situation & Occupation Living situation: Reports: with Family ED ROS GENERAL - Review of Systems Review Of Systems: Comprehensive ROS is negative, except as noted in HPI. ED EXAM, GI/ABD - Physical Exam Exam: See Below Exam Limited By: No Limitations General Appearance: Alert, Anxious, Mild Distress Eyes: Bilateral: EOMI Ears: Normal External Exam Nose: Normal Inspection Throat/Mouth: Normal Inspection Head: Atraumatic, Normocephalic Neck: Normal Inspection, Full Range of Motion Respiratory/Chest: No Respiratory Distress, Lungs Clear, Normal Breath Sounds Cardiovascular: Normal Peripheral Pulses, Regular Rate, Rhythm GI/Abdominal Exam: Normal Bowel Sounds, Soft. No: Distended, Guarding, Rebound, Tender (Non tender with deep palpation) Back Exam: Normal Inspection, Full Range of Motion. No: CVA Tenderness (L), CVA Tenderness (R) Extremities: Normal Inspection, Normal Range of Motion Neurological: Alert, Oriented, Normal Cognition Psychiatric: Normal Affect, Normal Mood, Anxious Skin Exam: Warm, Dry, Intact, Normal Color Course - Vital Signs Last Recorded V/S: Last Vital Signs Temp 97.4 F 07/12/20 19:31 Pulse 107 H 07/12/20 19:31 Resp 18 07/12/20 19:31 BP 134/76 07/12/20 19:31 Pulse Ox 97 07/12/20 19:31 - Orders/Labs/Meds Labs: Laboratory Tests 07/12/20 07/12/20 07/12/20 Range/Units 19:50 19:50 19:50 WBC 17.3 H (5.0-10.0) 10^3/uL RBC 3.99 L (4.2-5.4) 10^6/uL Hgb 12.1 (12.0-16.0) g/dL Hct 36.0 L (37.0-47.0) % MCV 90.2 (80-100) fL MCH 30.3 (27.0-34.0) pg MCHC 33.6 (33.0-35.0) g/dL Plt Count 300 (150-450) 10^3/uL Neut % (Auto) 72.7 (42.2-75.2) % Lymph % (Auto) 15.2 L (20.5-50.1) % [place] % (Auto) 10.8 H (2-8) % Eos % (Auto) 0.9 L (1.0-3.0) % Baso % (Auto) 0.4 (0.0-1.0) % D-Dimer, Quantitative < 100 (0-400) ng/mL Sodium 137 (136-145) mmol/L Potassium 3.8 (3.5-5.1) mmol/L Chloride 100 (98-107) mmol/L Carbon Dioxide 22 (21-32) mmol/L Anion Gap 18.8 H (7-13) mEq/L BUN 24 H (7-18) mg/dL Creatinine 1.60 H (0.55-1.02) mg/dL Est Cr Clr Drug Dosing 32.09 mL/min Estimated GFR (MDRD) 34 BUN/Creatinine Ratio 15.0 (No establ ref range) Glucose 163 H (74-99) mg/dL Lactic Acid (0.4-2.0) mmol/L Calcium 8.7 (8.5-10.1) mg/dL Total Bilirubin 0.4 (0.2-1.0) mg/dL AST 60 H (15-37) U/L ALT 104 H (14-59) U/L Alkaline Phosphatase 88 (46-116) U/L Total Protein 7.8 (6.4-8.2) g/dL Albumin 3.8 (3.4-5.0) g/dL Globulin 4.0 Albumin/Globulin Ratio 0.9 Amylase 83 (25-115) U/L Lipase 87 (73-393) U/L Urine Color (YELLOW) Urine Appearance (CLEAR) Urine pH (5.0-9.0) Ur Specific [place] (1.005-1.030) Urine Protein (NEGATIVE) Urine Glucose (UA) (NEGATIVE) Urine Ketones (NEGATIVE) Urine Occult Blood (NEGATIVE) Urine Nitrite (NEGATIVE) Urine Bilirubin (NEGATIVE) Urine Urobilinogen (0.2-1.0) mg/dL Ur Leukocyte Esterase (NEGATIVE) Urine RBC /HPF Urine WBC (0-5/HPF) /HPF Ur Epithelial Cells (NOT SEEN) /HPF Urine Bacteria (0-FEW/HPF) /HPF Urine HCG, Qual 07/12/20 07/12/20 07/12/20 Range/Units 19:50 19:54 19:54 WBC (5.0-10.0) 10^3/uL RBC (4.2-5.4) 10^6/uL Hgb (12.0-16.0) g/dL Hct (37.0-47.0) % MCV (80-100) fL MCH (27.0-34.0) pg MCHC (33.0-35.0) g/dL Plt Count (150-450) 10^3/uL Neut % (Auto) (42.2-75.2) % Lymph % (Auto) (20.5-50.1) % [place] % (Auto) (2-8) % Eos % (Auto) (1.0-3.0) % Baso % (Auto) (0.0-1.0) % D-Dimer, Quantitative (0-400) ng/mL Sodium (136-145) mmol/L Potassium (3.5-5.1) mmol/L Chloride (98-107) mmol/L Carbon Dioxide (21-32) mmol/L Anion Gap (7-13) mEq/L BUN (7-18) mg/dL Creatinine (0.55-1.02) mg/dL Est Cr Clr Drug Dosing mL/min Estimated GFR (MDRD) BUN/Creatinine Ratio (No establ ref range) Glucose (74-99) mg/dL Lactic Acid 2.0 (0.4-2.0) mmol/L Calcium (8.5-10.1) mg/dL Total Bilirubin (0.2-1.0) mg/dL AST (15-37) U/L ALT (14-59) U/L Alkaline Phosphatase (46-116) U/L Total Protein (6.4-8.2) g/dL Albumin (3.4-5.0) g/dL Globulin Albumin/Globulin Ratio Amylase (25-115) U/L Lipase (73-393) U/L Urine Color Yellow (YELLOW) Urine Appearance Slightly cloudy (CLEAR) Urine pH 5.5 (5.0-9.0) Ur Specific [place] 1.025 (1.005-1.030) Urine Protein >=300 H (NEGATIVE) Urine Glucose (UA) Negative (NEGATIVE) Urine Ketones Negative (NEGATIVE) Urine Occult Blood Trace-intact H (NEGATIVE) Urine Nitrite Negative (NEGATIVE) Urine Bilirubin Negative (NEGATIVE) Urine Urobilinogen 0.2 (0.2-1.0) mg/dL Ur Leukocyte Esterase Negative (NEGATIVE) Urine RBC 0-5 /HPF Urine WBC 5-10 H (0-5/HPF) /HPF Ur Epithelial Cells Many H (NOT SEEN) /HPF Urine Bacteria Many H (0-FEW/HPF) /HPF Urine HCG, Qual Negative Departure - Departure Time of Disposition: 22:12 Disposition: Home, Self-Care 01 Condition: Good Clinical Impression: Abdominal pain, Diverticulosis - Discharge Information *PRESCRIPTION DRUG MONITORING PROGRAM REVIEWED*: No *COPY OF PRESCRIPTION DRUG MONITORING REPORT IN PATIENT SAVANNA: No Instructions: Abdominal Pain, Adult, [id number], Diverticulosis Additional Instructions: increase fluids recheck clinic on Wednesday Cipro 250mg twice daily for one week urgent follow up if pain worsen or develop fever Sepsis Event Note (ED) - Evaluation Sepsis Screening Result: No Definite Risk - Focused Exam Vital Signs: Vital Signs Temp Pulse Resp BP Pulse Ox 07/12/20 19:31 97.4 F 107 H 18 134/76 97
== END 2020-07-12 22:22 | disposition home or self-care (01) ==
LOC: DL.ED 19:29
DX: K57.10 Diverticulosis of small intestine without perforation or abscess without bleeding (principal); E78.00 Pure hypercholesterolemia, unspecified; I12.9 Hypertensive chronic kidney disease with stage 1 through stage 4 chronic kidney disease, or unspecified chronic kidney disease; N18.30 Chronic kidney disease, stage 3 unspecified; K21.9 Gastro-esophageal reflux disease without esophagitis; Z88.1 Allergy status to other antibiotic agents; Z88.0 Allergy status to penicillin; Z79.899 Other long term (current) drug therapy
CPT/HCPCS: 36415; 74176; 80053; 81001; 81025; 82150; 83605; 83690; 85025; 85379; 99284; A9270; 99283

== ENCOUNTER 2021-01-10 12:37 | Emergency (ER) | payer BC ==
[2021-01-10 13:16] VITALS: BP 136/86; PULSE 88
--- NOTE | 2021-01-10 13:16 | EDM.PDOC ---
ED HPI GENERAL MEDICAL PROBLEM - General Chief Complaint: ENT Problem Stated Complaint: PAROTID GLAND SWOLLEN NERVE PAIN Time Seen by Provider: 01/10/21 13:15 Source of Information: Reports: Patient, Old Records, RN, RN Notes Reviewed History Limitations: Reports: No Limitations - History of Present Illness INITIAL COMMENTS - FREE TEXT/NARRATIVE: Pt presents to ER by POV with c/o severe pain from left sided parotitis. Pt states she was Dr. Mejia's clinic today for the same problem, and was given Clindamycin and Celebrex. She was advised that a CT scan may be needed, but was not available until Wednesday. Patient states she has had problems with her parotid glands on and off for about 3 years, she experiences pain in about 3 week cycles that lasts about 1 week. Pain today is in the left side but has been in the right at times. Pt rates it 6/10 now after analgesia, sharp, stabbing in quality. The pain at maximal intensity is rated 9/10. Patient states the pain started increasing 01/09/21. PCP is Dr. Mejia. Pt was started on Gabapentin 400mg daily 3 weeks ago, states little relief in that time. Pt also uses Tylenol, Oxycodone and Advil for analgesia, with only slight relief. Denies fever, face swelling, or redness. Onset: Gradual Duration: Getting Worse, Intermittent, Recurring, Waxing/Waning Location: Reports: Face Quality: Reports: Same as Previous Episode Severity: Severe Improves with: Reports: None Worsens with: Reports: None Associated Symptoms: Reports: No Other Symptoms Left Face/Facial Pain Score (Numeric/FACES): 6 - Related Data Allergies Allergy/AdvReac Type Severity Reaction Status Date / Time erythromycin lactobionate Allergy Nausea Verified 01/10/21 13:15 [From Erythrocin] Penicillins Allergy Rash Verified 01/10/21 13:15 Home Meds: Home Meds predniSONE [Jazzy] 4 mg PO ASDIRECTED 11/24/14 [History] Rosuvastatin [Crestor] 20 mg PO DAILY 11/25/14 [History] Aspirin [Halfprin] 81 mg PO BEDTIME 01/12/16 [History] Fluticasone Propionate [Flonase] 1 spray INH ASDIRECTED PRN 12/03/17 [History] Omeprazole [Prilosec] 40 mg PO DAILY 12/03/17 [History] clindamycin HCL [Cleocin HCl] 150 mg PO TID 05/22/18 [History] Past Medical History HEENT History: Reports: Sinusitis Other HEENT History: 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 Musculoskeletal History: Reports: SLE Other Musculoskeletal History: LUPUS IN REMISSION Neurological History: Reports: None Psychiatric History: Reports: None Endocrine/Metabolic History: Reports: None Hematologic History: Reports: Anemia, Iron Deficiency Immunologic History: Reports: SLE Other Immunologic History: in remission for 11 years (had for 8 years) Oncologic (Cancer) History: Reports: None Dermatologic History: Reports: Cellulitis Other Dermatologic History: esinophyllic cellulitis - Infectious Disease History Infectious Disease History: Reports: Chicken Pox, Shingles - Past Surgical History Head Surgeries/Procedures: Reports: None HEENT Surgical History: Reports: Adenoidectomy, Cataract Surgery, Eye Surgery, Tonsillectomy, Other (See Below) Other HEENT Surgeries/Procedures: corneal transplant Cardiovascular Surgical History: Reports: None Respiratory Surgical History: Reports: None GI Surgical History: Reports: Colonoscopy, Hernia, Inguinal Female Surgical History: Reports: Other (See Below) Other Female Surgeries/Procedures: kidney biopsy Social & Family History - Family History Family Medical History: No Pertinent Family History - Caffeine Use Caffeine Use: Reports: Tea Other Caffeine Use: 16. oz - Living Situation & Occupation Living situation: Reports: with Family ED ROS ENT - Review of Systems Review Of Systems: Comprehensive ROS is negative, except as noted in HPI. ED EXAM, ENT - Physical Exam Exam: See Below Exam Limited By: No Limitations General Appearance: Alert, WD/WN, No Apparent Distress, Obese Eye Exam: Bilateral Eye: EOMI, Normal Inspection, PERRL Ears: Normal External Exam, Normal Canal, Hearing Grossly Normal, Normal TMs Nose: Normal Inspection, Normal Mucousa, No Blood Mouth/Throat: Normal Inspection, Normal Gums, Normal Lips, Normal Oropharynx, Normal Teeth Head: Atraumatic, Normocephalic, Facial Tenderness (Overlying left parotid with no palpable mass, no redness, or increased warmth, and no visible swelling.) Neck: Normal Inspection, Supple, Non-Tender, Full Range of Motion. No: Lymphadenopathy (L), Lymphadenopathy (R) Respiratory/Chest: Lungs Clear Cardiovascular: Regular Rate, Rhythm Neurological: Alert, Oriented, No Motor/Sensory Deficits Psychiatric: Normal Mood Skin: Warm, Dry, Intact, Normal Color, No Rash Course - Vital Signs Last Recorded V/S: Last Vital Signs Temp 99.3 F 01/10/21 13:07 Pulse 88 01/10/21 13:07 Resp 20 01/10/21 13:07 BP 136/86 01/10/21 13:07 Pulse Ox 99 01/10/21 13:07 - Orders/Labs/Meds Labs: Laboratory Tests 01/10/21 01/10/21 Range/Units 13:47 13:47 WBC 9.0 (5.0-10.0) 10^3/uL RBC 4.13 L (4.2-5.4) 10^6/uL Hgb 12.4 (12.0-16.0) g/dL Hct 38.6 (37.0-47.0) % MCV 93.5 D (80-100) fL MCH 30.0 (27.0-34.0) pg MCHC 32.1 L (33.0-35.0) g/dL Plt Count 332 (150-450) 10^3/uL Neut % (Auto) 64.9 (42.2-75.2) % Lymph % (Auto) 16.3 L (20.5-50.1) % [place] % (Auto) 15.6 H (2-8) % Eos % (Auto) 2.6 (1.0-3.0) % Baso % (Auto) 0.6 (0.0-1.0) % C-Reactive Protein 4.4 H (0.0-0.9) mg/dL Meds: Medications Discontinued Medications Generic Name Dose Route Start Last Admin Trade Name Freq PRN Reason Stop Dose Admin Oxycodone/Acetaminophen 1 tab 01/10/21 13:33 01/10/21 13:46 Acetaminophen/Oxycodone 325-5 Mg Tab PO 01/10/21 13:34 1 tab ONETIME ONE Administration - Radiology Interpretation Free Text/Narrative:: [facility] [place] [facility] Final Radiology Report Call: [phone] assistance Online chat: [email or web address] Name: RENEE NOVOA Age: 50Years F Date: 01/10/2021 SSN: -- : 1970 Study: CT MAX FACIAL SINUS WO CONT Requesting Physician: ALVIN FAITH Images: [phone] Addl Studies: Provided Clinical History: Left parotid pain swelling Contrast: Without Contrast Medium: Contrast Amount: Contrast Method: CONFIDENTIALITY STATEMENT This report is intended only for use by the referring physician, and only in accordance with law. If you received this in error, call [phone]. Page 1 of 1 PROCEDURE INFORMATION: Exam: CT Maxillofacial Without Contrast Exam date and time: 01/10/2021 2:18 PM Age: 50 years old Clinical indication: Face pain; Additional info: Left parotid pain swelling TECHNIQUE: Imaging protocol: Computed tomography images of the face without contrast. Radiation optimization: All CT scans at this facility use at least one of these dose optimization techniques: automated exposure control; mA and/or kV adjustment per patient size (includes targeted exams where dose is matched to clinical indication); or iterative reconstruction. COMPARISON: CT Max Facial Sinus wo Cont 05/22/2018 12:44 PM FINDINGS: Orbital cavity: Orbits are normal. Globes are unremarkable. Bones/joints: No acute fracture. Paranasal sinuses: Mild mucosal thickening noted within both maxillary sinuses. Soft tissues: Unremarkable. IMPRESSION: Mild mucosal thickening noted within both maxillary sinuses. Thank you for allowing us to participate in the care of your patient. Dictated and Authenticated by: Orestes Bunch DO 01/10/2021 2:46 PM Central Time ([place] & [place]) Departure - Departure Time of Disposition: 14:53 Disposition: Home, Self-Care 01 Condition: Good Clinical Impression: Parotitis - Discharge Information *PRESCRIPTION DRUG MONITORING PROGRAM REVIEWED*: No *COPY OF PRESCRIPTION DRUG MONITORING REPORT IN PATIENT SAVANNA: No Instructions: Parotitis Forms: ED Department Discharge Additional Instructions: Rx: Oxycodone APAP 5mg/325mg Follow up with parotid specialist as planned. Sepsis Event Note (ED) - Focused Exam Vital Signs: Vital Signs Temp Pulse Resp BP Pulse Ox 01/10/21 13:07 99.3 F 88 20 136/86 99
[2021-01-10] MEDS ORDERED: Acetaminophen/oxyCODONE 325-5 MG Tab PO ONE (13:33)
--- NOTE | 2021-01-10 14:47 | CT ---
PROCEDURE INFORMATION: Exam: CT Maxillofacial Without Contrast Exam date and time: 01/10/2021 2:18 PM Age: 50 years old Clinical indication: Face pain; Additional info: Left parotid pain swelling TECHNIQUE: Imaging protocol: Computed tomography images of the face without contrast. Radiation optimization: All CT scans at this facility use at least one of these dose optimization techniques: automated exposure control; mA and/or kV adjustment per patient size (includes targeted exams where dose is matched to clinical indication); or iterative reconstruction. COMPARISON: CT Max Facial Sinus wo Cont 05/22/2018 12:44 PM FINDINGS: Orbital cavity: Orbits are normal. Globes are unremarkable. Bones/joints: No acute fracture. Paranasal sinuses: Mild mucosal thickening noted within both maxillary sinuses. Soft tissues: Unremarkable. IMPRESSION: Mild mucosal thickening noted within both maxillary sinuses.
== END 2021-01-10 15:04 | disposition home or self-care (01) ==
LOC: DL.ED 12:37
DX: K11.20 Sialoadenitis, unspecified (principal); E78.00 Pure hypercholesterolemia, unspecified; I12.9 Hypertensive chronic kidney disease with stage 1 through stage 4 chronic kidney disease, or unspecified chronic kidney disease; N18.30 Chronic kidney disease, stage 3 unspecified; Z88.0 Allergy status to penicillin; Z88.1 Allergy status to other antibiotic agents
CPT/HCPCS: 36415; 70486; 85025; 86140; 99284; A9270

== ENCOUNTER 2021-04-12 08:46 | Emergency (ER) | payer BC ==
[2021-04-12 10:51] VITALS: BP 88/77; PULSE 85
[2021-04-12] MEDS ORDERED: Sodium Chloride 0.9% 10 ML Syringe FLUSH PRN (11:22)
[2021-04-12] MEDS ORDERED: Sodium Chloride 0.9% 1,000 ML IV ONE (11:23)
--- NOTE | 2021-04-12 11:30 | EDM.PDOC ---
ED HPI GENERAL MEDICAL PROBLEM - General Chief Complaint: Cardiovascular Problem Stated Complaint: HAD BOOSTER SHOT TU / FEELS SICK Time Seen by Provider: 04/12/21 11:24 Source of Information: Reports: Patient History Limitations: Reports: No Limitations - History of Present Illness INITIAL COMMENTS - FREE TEXT/NARRATIVE: 50 y/o F c/o dizziness, chest fluttering weakness, diarrhea, dehydration since Wednesday. The dizziness is worse when t tries to move. It does not feel like the room is spinning but more like she is going to pass out. Pt states she received her COVID booster last week and Wednesday she developed chills, body aches, agrcia, vomiting. She has not been able to eat or drink since Wednesday. Pt called her doctor who instructed her to ride out her symptoms if possible and push fluids if possible. Reports ear surgery two weeks ago as well as sinus washout. Tubes were placed in her ears secondary to frequent infections of the sinuses and ears. - Related Data Allergies Allergy/AdvReac Type Severity Reaction Status Date / Time erythromycin lactobionate Allergy Nausea Verified 04/12/21 10:51 [From Erythrocin] Penicillins Allergy Rash Verified 04/12/21 10:51 Home Meds: Home Meds predniSONE [Jazzy] 4 mg PO ASDIRECTED 11/24/14 [History] Rosuvastatin [Crestor] 20 mg PO DAILY 11/25/14 [History] Aspirin [Halfprin] 81 mg PO BEDTIME 01/12/16 [History] Fluticasone Propionate [Flonase] 1 spray INH ASDIRECTED PRN 12/03/17 [History] Omeprazole [Prilosec] 40 mg PO DAILY 12/03/17 [History] clindamycin HCL [Cleocin HCl] 150 mg PO TID 05/22/18 [History] Gabapentin [Neurontin] 400 mg PO DAILY 04/12/21 [History] predniSONE [Prednisone] 1 mg PO ASDIRECTED 04/12/21 [History] Past Medical History HEENT History: Reports: Sinusitis Other HEENT History: 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 Musculoskeletal History: Reports: SLE Other Musculoskeletal History: LUPUS IN REMISSION Neurological History: Reports: None Psychiatric History: Reports: None Endocrine/Metabolic History: Reports: None Hematologic History: Reports: Anemia, Iron Deficiency Immunologic History: Reports: SLE Other Immunologic History: in remission for 11 years (had for 8 years) Oncologic (Cancer) History: Reports: None Dermatologic History: Reports: Cellulitis Other Dermatologic History: esinophyllic cellulitis - Infectious Disease History Infectious Disease History: Reports: Chicken Pox, Shingles - Past Surgical History Head Surgeries/Procedures: Reports: None HEENT Surgical History: Reports: Adenoidectomy, Cataract Surgery, Eye Surgery, Tonsillectomy, Other (See Below) Other HEENT Surgeries/Procedures: corneal transplant Cardiovascular Surgical History: Reports: None Respiratory Surgical History: Reports: None GI Surgical History: Reports: Colonoscopy, Hernia, Inguinal Female Surgical History: Reports: Other (See Below) Other Female Surgeries/Procedures: kidney biopsy Social & Family History - Family History Family Medical History: No Pertinent Family History - Tobacco Use Tobacco Use Status *Q: Unknown Ever Used Tobacco - Caffeine Use Caffeine Use: Reports: Tea Other Caffeine Use: 16. oz - Recreational Drug Use Recreational Drug Use: No - Living Situation & Occupation Living situation: Reports: with Family ED ROS GENERAL - Review of Systems Review Of Systems: Comprehensive ROS is negative, except as noted in HPI. ED EXAM, GENERAL - Physical Exam Exam: See Below Exam Limited By: No Limitations General Appearance: Alert Eye Exam: Bilateral Eye: PERRL Ears: Other (Tubes in both TM bilaterally) Nose: Normal Inspection, Normal Mucosa, No Blood Throat/Mouth: Normal Inspection, Normal Lips, Normal Teeth, Normal Gums, Normal Oropharynx, Normal Voice, No Airway Compromise Head: Atraumatic, Normocephalic Neck: Normal Inspection, Supple, Non-Tender, Full Range of Motion Respiratory/Chest: No Respiratory Distress, Lungs Clear, Normal Breath Sounds, No Accessory Muscle Use, Chest Non-Tender Cardiovascular: Normal Peripheral Pulses, Regular Rate, Rhythm, No Edema, No Gallop, No JVD, No Murmur, No Rub GI/Abdominal: Soft, Non-Tender (Female) Exam: Deferred Rectal (Female) Exam: Deferred Back Exam: Normal Inspection, Full Range of Motion Extremities: Normal Inspection, Normal Range of Motion, Non-Tender, Normal Capillary Refill, No Pedal Edema Neurological: Alert, Oriented, CN II-XII Intact, Normal Cognition, Normal Gait, Normal Reflexes, No Motor/Sensory Deficits Psychiatric: Normal Affect Skin Exam: Warm, Dry, Intact, Normal Color, No Rash #1 Interpretation EKG Date: 04/12/21 Time: 11:30 Rhythm: NSR [place]: Normal P-Wave: Present QRS: Normal ST-T: Normal QT: Normal Course - Vital Signs Last Recorded V/S: Last Vital Signs Temp 98.5 F 04/12/21 10:45 Pulse 85 04/12/21 10:45 Resp 14 04/12/21 10:45 BP 88/77 L 04/12/21 10:45 Pulse Ox 91 L 04/12/21 10:45 Orthostatic Blood Pressure [ 102/63 Standing] Orthostatic Blood Pressure [ 102/62 Sitting] Orthostatic Blood Pressure [ 101/55 Supine] - Orders/Labs/Meds Orders: Active Orders 24 hr Category Date Time Status Peripheral IV Insertion Adult [OM.PC] Routine Oth 04/12/21 11:22 Ordered Labs: Laboratory Tests 04/12/21 04/12/21 04/12/21 Range/Units 11:04 11:04 11:04 WBC 9.2 (5.0-10.0) 10^3/uL RBC 4.15 L (4.2-5.4) 10^6/uL Hgb 12.3 (12.0-16.0) g/dL Hct 37.9 (37.0-47.0) % MCV 91.3 (80-100) fL MCH 29.6 (27.0-34.0) pg MCHC 32.5 L (33.0-35.0) g/dL Plt Count 176 D (150-450) 10^3/uL Neut % (Auto) 72.8 (42.2-75.2) % Lymph % (Auto) 8.4 L (20.5-50.1) % [place] % (Auto) 18.3 H (2-8) % Eos % (Auto) 0.2 L (1.0-3.0) % Baso % (Auto) 0.3 (0.0-1.0) % Sodium 133 L (136-145) mmol/L Potassium 4.3 (3.5-5.1) mmol/L Chloride 95 L (98-107) mmol/L Carbon Dioxide 19 L (21-32) mmol/L Anion Gap 23.3 H (7-13) mEq/L BUN 32 H (7-18) mg/dL Creatinine 2.43 H (0.55-1.02) mg/dL Est Cr Clr Drug Dosing 21.91 mL/min Estimated GFR (MDRD) 21 BUN/Creatinine Ratio 13.2 (No establ ref range) Glucose 132 H (70-99) mg/dL Lactic Acid 0.5 (0.4-2.0) mmol/L Calcium 8.9 (8.5-10.1) mg/dL Phosphorus 4.3 (2.6-4.7) mg/dL Magnesium 1.5 L (1.8-2.4) mg/dL Total Bilirubin 0.5 (0.2-1.0) mg/dL AST 33 (15-37) U/L ALT 32 (14-59) U/L Alkaline Phosphatase 60 (46-116) U/L Troponin I High Sens 19 (<=51) pg/mL C-Reactive Protein 9.5 H (0.0-0.9) mg/dL Total Protein 8.0 (6.4-8.2) g/dL Albumin 3.5 (3.4-5.0) g/dL Globulin 4.5 Albumin/Globulin Ratio 0.8 TSH, Ultra Sensitive 1.29 (0.36-3.74) uIU/mL Urine Color (YELLOW) Urine Appearance (CLEAR) Urine pH (5.0-9.0) Ur Specific [place] (1.005-1.030) Urine Protein (NEGATIVE) Urine Glucose (UA) (NEGATIVE) Urine Ketones (NEGATIVE) Urine Occult Blood (NEGATIVE) Urine Nitrite (NEGATIVE) Urine Bilirubin (NEGATIVE) Urine Urobilinogen (0.2-1.0) mg/dL Ur Leukocyte Esterase (NEGATIVE) U Hyaline Cast (Auto) Urine RBC (0-5) /HPF Urine WBC (0-5/HPF) /HPF Ur Epithelial Cells (NOT SEEN) /HPF Amorphous Sediment (NOT SEEN) /HPF Urine Bacteria (0-FEW/HPF) /HPF Urine Mucus (NOT SEEN) /LPF Influenza Type A RNA (NEGATIVE) RSV RNA (INAAT) (NEGATIVE) Influenza Type B RNA (NEGATIVE) SARS-CoV-2 RNA (ANDRAE) (NEGATIVE) 04/12/21 04/12/21 Range/Units 11:28 12:12 WBC (5.0-10.0) 10^3/uL RBC (4.2-5.4) 10^6/uL Hgb (12.0-16.0) g/dL Hct (37.0-47.0) % MCV (80-100) fL MCH (27.0-34.0) pg MCHC (33.0-35.0) g/dL Plt Count (150-450) 10^3/uL Neut % (Auto) (42.2-75.2) % Lymph % (Auto) (20.5-50.1) % [place] % (Auto) (2-8) % Eos % (Auto) (1.0-3.0) % Baso % (Auto) (0.0-1.0) % Sodium (136-145) mmol/L Potassium (3.5-5.1) mmol/L Chloride (98-107) mmol/L Carbon Dioxide (21-32) mmol/L Anion Gap (7-13) mEq/L BUN (7-18) mg/dL Creatinine (0.55-1.02) mg/dL Est Cr Clr Drug Dosing mL/min Estimated GFR (MDRD) BUN/Creatinine Ratio (No establ ref range) Glucose (70-99) mg/dL Lactic Acid (0.4-2.0) mmol/L Calcium (8.5-10.1) mg/dL Phosphorus (2.6-4.7) mg/dL Magnesium (1.8-2.4) mg/dL Total Bilirubin (0.2-1.0) mg/dL AST (15-37) U/L ALT (14-59) U/L Alkaline Phosphatase (46-116) U/L Troponin I High Sens (<=51) pg/mL C-Reactive Protein (0.0-0.9) mg/dL Total Protein (6.4-8.2) g/dL Albumin (3.4-5.0) g/dL Globulin Albumin/Globulin Ratio TSH, Ultra Sensitive (0.36-3.74) uIU/mL Urine Color Yellow (YELLOW) Urine Appearance Clear (CLEAR) Urine pH 5.5 (5.0-9.0) Ur Specific [place] 1.025 (1.005-1.030) Urine Protein 100 H (NEGATIVE) Urine Glucose (UA) Negative (NEGATIVE) Urine Ketones 15 H (NEGATIVE) Urine Occult Blood Negative (NEGATIVE) Urine Nitrite Negative (NEGATIVE) Urine Bilirubin Small H (NEGATIVE) Urine Urobilinogen 0.2 (0.2-1.0) mg/dL Ur Leukocyte Esterase Negative (NEGATIVE) U Hyaline Cast (Auto) Rare Urine RBC 0-5 (0-5) /HPF Urine WBC 0-5 (0-5/HPF) /HPF Ur Epithelial Cells Many H (NOT SEEN) /HPF Amorphous Sediment Few (NOT SEEN) /HPF Urine Bacteria Moderate H (0-FEW/HPF) /HPF Urine Mucus Rare (NOT SEEN) /LPF Influenza Type A RNA Negative (NEGATIVE) RSV RNA (INAAT) Negative (NEGATIVE) Influenza Type B RNA Negative (NEGATIVE) SARS-CoV-2 RNA (ANDRAE) Positive H (NEGATIVE) Meds: Medications Discontinued Medications Generic Name Dose Route Start Last Admin Trade Name Freddieq PRN Reason Stop Dose Admin Sodium Chloride 1,000 mls @ 999 mls/hr 04/12/21 11:23 04/12/21 11:34 Normal Saline IV 04/12/21 12:23 999 mls/hr .BOLUS ONE Administration Lactated Ringer's 1,000 mls @ 999 mls/hr 04/12/21 12:17 04/12/21 12:20 Ringers, Lactated IV 04/12/21 13:17 999 mls/hr .BOLUS ONE Administration Ondansetron HCl 4 mg 04/12/21 13:05 04/12/21 13:12 Ondansetron 4 Mg/2 Ml Sdv IVPUSH 04/12/21 13:06 4 mg ONETIME ONE Administration Sodium Chloride 10 ml 04/12/21 11:22 Sodium Chloride 0.9% 10 Ml Syringe FLUSH ASDIRECTED PRN Keep Vein Open - Re-Assessments/Exams Free Text/Narrative Re-Assessment/Exam: 04/12/21 13:19 The pt is COVID positive with no respiratory symptoms. I renée lhave her quarantine for fourteen days from the onset of her symptoms and write her an RX for zofran. Departure - Departure Time of Disposition: 13:20 Disposition: Home, Self-Care 01 Condition: Fair Clinical Impression: COVID Instructions: COVID-19, 10 Things You Can Do to Manage Your COVID-19 Symptoms at Home - [facility] (12/20/2020) Forms: ED Department Discharge Additional Instructions: RX: Zofran Use tylenol and Ibuprofen for fever and pain control as needed. Drink plenty of fluids to maintain hydrations. Quarantine for 14 days from the onset of your symptoms. If any new symptoms or concerns develop contact your primary care facility or return to the ER. Sepsis Event Note (ED) - Evaluation Sepsis Screening Result: No Definite Risk - Focused Exam Vital Signs: Vital Signs Temp Pulse Resp BP Pulse Ox 04/12/21 10:45 98.5 F 85 14 88/77 L 91 L - My Orders Last 24 Hours: My Active Orders 04/12/21 11:22 Peripheral IV Insertion Adult [OM.PC] Routine - Assessment/Plan Last 24 Hours: My Active Orders 04/12/21 11:22 Peripheral IV Insertion Adult [OM.PC] Routine
[2021-04-12 12:04] LABS: ANION GAP 23.3 mEq/L (7-13)
[2021-04-12] MEDS ORDERED: Lactated Ringers 1,000 ML IV ONE (12:17)
[2021-04-12 12:24] LABS: RESPIRATORY SYNCYTIAL VIR NAA NEGATIVE (NEGATIVE)
[2021-04-12 12:28] LABS: CORONAVIRUS COVID-19 NAA POSITIVE (NEGATIVE)
[2021-04-12] MEDS ORDERED: Ondansetron 4 MG/2 ML SDV IVPUSH ONE (13:05)
== END 2021-04-12 13:34 | disposition home or self-care (01) ==
LOC: DL.ED 08:46
DX: U07.1 COVID-19 (principal); E78.00 Pure hypercholesterolemia, unspecified; I10 Essential (primary) hypertension; K21.9 Gastro-esophageal reflux disease without esophagitis; Z79.899 Other long term (current) drug therapy; Z88.0 Allergy status to penicillin; Z88.1 Allergy status to other antibiotic agents
CPT/HCPCS: 0241U; 36415; 80053; 81001; 83605; 83735; 84100; 84443; 84484; 85025; 86140; 93005; 96374; 99284; J2405; J7030; J7120

== ENCOUNTER 2021-04-16 09:35 | Inpatient (IN) | payer BC ==
--- NOTE | 2021-04-16 10:51 | EDM.PDOC ---
ED HPI GENERAL MEDICAL PROBLEM - General Chief Complaint: Respiratory Problem Stated Complaint: COVID POSITIVE Time Seen by Provider: 04/16/21 10:50 Source of Information: Reports: Patient, Old Records, Provider (Dr. Mejia), RN, RN Notes Reviewed History Limitations: Reports: No Limitations - History of Present Illness INITIAL COMMENTS - FREE TEXT/NARRATIVE: Pt presents to ER from home by POV with c/o syncope x2 at home this morning. Pt is COVID positive. She was seen here on 04/12/21 with N/V and diarrhea with fever and body aches. She has been fully COVID vaccinated and received a booster shot just prior to the onset of her symptoms. Pt now c/o fever, cough, shortness of breath, generalized weakness, and continues to have vomiting and diarrhea. Denies chest pain. Denies injury from the syncopal episodes. Onset: Gradual (1) Duration: Constant, Getting Worse Location: Reports: Chest, Generalized Quality: Reports: Ache Severity: Severe Improves with: Reports: None Worsens with: Reports: None Associated Symptoms: Reports: No Other Symptoms - Related Data Allergies Allergy/AdvReac Type Severity Reaction Status Date / Time erythromycin lactobionate Allergy Nausea Verified 04/12/21 10:51 [From Erythrocin] Penicillins Allergy Rash Verified 04/12/21 10:51 Home Meds: Home Meds predniSONE [Jazzy] 4 mg PO ASDIRECTED 11/24/14 [History] Rosuvastatin [Crestor] 20 mg PO DAILY 11/25/14 [History] Aspirin [Halfprin] 81 mg PO BEDTIME 01/12/16 [History] Fluticasone Propionate [Flonase] 1 spray INH ASDIRECTED PRN 12/03/17 [History] Omeprazole [Prilosec] 40 mg PO DAILY 12/03/17 [History] clindamycin HCL [Cleocin HCl] 150 mg PO TID 05/22/18 [History] Gabapentin [Neurontin] 400 mg PO DAILY 04/12/21 [History] predniSONE [Prednisone] 1 mg PO ASDIRECTED 04/12/21 [History] Past Medical History HEENT History: Reports: Sinusitis Other HEENT History: 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'T BE HOSE SPRAYER History: Reports: Endometriosis, Spontaneous Other HOSE SPRAYER History: HAS IUD Musculoskeletal History: Reports: SLE Other Musculoskeletal History: LUPUS IN REMISSION Neurological History: Reports: None Psychiatric History: Reports: None Endocrine/Metabolic History: Reports: None Hematologic History: Reports: Anemia, Iron Deficiency Immunologic History: Reports: SLE Other Immunologic History: in remission for 11 years (had for 8 years) Oncologic (Cancer) History: Reports: None Dermatologic History: Reports: Cellulitis Other Dermatologic History: esinophyllic cellulitis - Infectious Disease History Infectious Disease History: Reports: Chicken Pox, Shingles - Past Surgical History Head Surgeries/Procedures: Reports: None HEENT Surgical History: Reports: Adenoidectomy, Cataract Surgery, Eye Surgery, Tonsillectomy, Other (See Below) Other HEENT Surgeries/Procedures: corneal transplant Cardiovascular Surgical History: Reports: None Respiratory Surgical History: Reports: None GI Surgical History: Reports: Colonoscopy, Hernia, Inguinal Female Surgical History: Reports: Other (See Below) Other Female Surgeries/Procedures: kidney biopsy Social & Family History - Family History Family Medical History: No Pertinent Family History - Caffeine Use Caffeine Use: Reports: Tea Other Caffeine Use: 16. oz - Living Situation & Occupation Living situation: Reports: with Family Occupation: Employed ED ROS GENERAL - Review of Systems Review Of Systems: Comprehensive ROS is negative, except as noted in HPI. ED EXAM, GENERAL - Physical Exam Exam: See Below Exam Limited By: No Limitations General Appearance: Alert, WD/WN, Other (Acutely ill appearing) Eye Exam: Bilateral Eye: Normal Inspection (No scleral icterus) Nose: Normal Inspection, No Blood Throat/Mouth: Normal Lips, Normal Voice, No Airway Compromise, Other (Very dry oral mucosa). No: Perioral Cyanosis Head: Atraumatic, Normocephalic Neck: Normal Inspection, Supple, Non-Tender, Full Range of Motion Respiratory/Chest: No Respiratory Distress, No Accessory Muscle Use, Chest Non- Tender, Decreased Breath Sounds. No: Crackles, Rales, Rhonchi, Wheezing Cardiovascular: Regular Rate, Rhythm, No Edema, Tachycardia GI/Abdominal: Normal Bowel Sounds, Soft, No Organomegaly, Tender (Mild generalized tenderness.), Abnormal Bowel Sounds (Slightly hyperactive bowel sounds). No: Guarding, Rigid, Rebound Back Exam: Normal Inspection Extremities: Normal Inspection, Normal Range of Motion, Non-Tender, Normal Capillary Refill, No Pedal Edema Neurological: Alert, Oriented, CN II-XII Intact, Normal Cognition, No Motor/Sensory Deficits, Other (Generalized weakness) Psychiatric: Depressed Mood, Flat Affect Skin Exam: Warm, Dry, Intact, Normal Color, No Rash #1 Interpretation EKG Date: 04/16/21 Time: 11:24 Rhythm: Other (SR) Rate (Beats/Min): 84 [place]: LAD-Left [place] Deviation (Borderline) P-Wave: Present QRS: Normal ST-T: Normal QT: Prolonged Comparison: NA - No Prior EKG Course - Vital Signs Last Recorded V/S: Orthostatic Blood Pressure [ 76/58 Standing] Orthostatic Blood Pressure [ 83/57 Sitting] Orthostatic Blood Pressure [ 88/56 Supine] - Orders/Labs/Meds Orders: Active Orders 24 hr Category Date Time Status Orthostatic Vital Signs [RC] ASDIRECTED Care 04/16/21 10:56 Active Peripheral IV Care [RC] . DIRECTED Care 04/16/21 10:52 Active CBC WITH AUTO DIFF [HEME] Stat Lab 04/16/21 11:06 Results CULTURE BLOOD [BC] Stat Lab 04/16/21 11:06 Received CULTURE BLOOD [BC] Stat Lab 04/16/21 11:11 Received MANUAL DIFFERENTIAL QA/NC [HEME] Stat Lab 04/16/21 11:06 Results Magnesium Sulfate/Water [Magnesium Sulfate in Water 2 Med 04/16/21 12:41 Ordered GM/50 ML] 2 gm Premix Bag 1 bag IV ONETIME Magnesium Sulfate/Water [Magnesium Sulfate in Water 2 Med 04/16/21 12:41 Ordered GM/50 ML] 2 gm Premix Bag 1 bag IV ONETIME Potassium Chloride [KCl in Water 10 MEQ/100 ML] 10 meq Med 04/16/21 12:30 Active Premix Bag 1 bag IV ONETIME Sodium Chloride 0.9% [Saline Flush] Med 04/16/21 10:52 Active 10 ml FLUSH ASDIRECTED PRN Blood Culture x2 Reflex Set [OM.PC] Stat Oth 04/16/21 10:51 Ordered Peripheral IV Insertion Adult [OM.PC] Stat Oth 04/16/21 10:52 Ordered Medication Orders Potassium Chloride 10 meq/ (Premix) 100 mls @ 100 mls/hr IV ONETIME ONE Stop: 04/16/21 13:29 Magnesium Sulfate 2 gm/ Premix 50 mls @ 50 mls/hr IV ONETIME ONE Stop: 04/16/21 13:40 Magnesium Sulfate 2 gm/ Premix 50 mls @ 50 mls/hr IV ONETIME ONE Stop: 04/16/21 13:40 Sodium Chloride (Sodium Chloride 0.9% 10 Ml Syringe) 10 ml FLUSH ASDIRECTED PRN PRN Reason: Keep Vein Open Labs: Laboratory Tests 04/16/21 04/16/21 04/16/21 Range/Units 11:06 11:06 11:06 WBC 11.1 H (5.0-10.0) 10^3/uL RBC 3.86 L (4.2-5.4) 10^6/uL Hgb 11.4 L (12.0-16.0) g/dL Hct 34.4 L (37.0-47.0) % MCV 89.1 (80-100) fL MCH 29.5 (27.0-34.0) pg MCHC 33.1 (33.0-35.0) g/dL Plt Count 292 D (150-450) 10^3/uL Neut % (Auto) 90.8 H (42.2-75.2) % Lymph % (Auto) 4.3 L (20.5-50.1) % Christian % (Auto) 4.4 (2-8) % Eos % (Auto) 0.4 L (1.0-3.0) % Baso % (Auto) 0.1 (0.0-1.0) % Add Manual Diff Yes PT 12.5 H (9.0-12.0) SEC INR 1.3 H (0.9-1.2) APTT 35.6 H (22.0-34.0) SEC D-Dimer, Quantitative 605 H (0-400) ng/mL Sodium 135 L (136-145) mmol/L Potassium 2.9 L (3.5-5.1) mmol/L Chloride 98 (98-107) mmol/L Carbon Dioxide 19 L (21-32) mmol/L Anion Gap 20.9 H (7-13) mEq/L BUN 20 H (7-18) mg/dL Creatinine 2.16 H (0.55-1.02) mg/dL Est Cr Clr Drug Dosing 23.51 mL/min Estimated GFR (MDRD) 24 BUN/Creatinine Ratio 9.3 (No establ ref range) Glucose 161 H (70-99) mg/dL Lactic Acid (0.4-2.0) mmol/L Calcium 7.9 L (8.5-10.1) mg/dL Magnesium 0.9 L (1.8-2.4) mg/dL Ferritin (8-252) mg/mL Total Bilirubin 0.3 (0.2-1.0) mg/dL AST 122 H (15-37) U/L ALT 112 H (14-59) U/L Alkaline Phosphatase 56 (46-116) U/L Lactate Dehydrogenase 416 H (81-234) U/L Troponin I High Sens 12 (<=51) pg/mL C-Reactive Protein 18.3 H (0.0-0.9) mg/dL Total Protein 7.1 (6.4-8.2) g/dL Albumin 2.9 L (3.4-5.0) g/dL Globulin 4.2 Albumin/Globulin Ratio 0.69 Amylase 62 (25-115) U/L Lipase 71 L (73-393) U/L 04/16/21 04/16/21 Range/Units 11:06 11:06 WBC (5.0-10.0) 10^3/uL RBC (4.2-5.4) 10^6/uL Hgb (12.0-16.0) g/dL Hct (37.0-47.0) % MCV (80-100) fL MCH (27.0-34.0) pg MCHC (33.0-35.0) g/dL Plt Count (150-450) 10^3/uL Neut % (Auto) (42.2-75.2) % Lymph % (Auto) (20.5-50.1) % Christian % (Auto) (2-8) % Eos % (Auto) (1.0-3.0) % Baso % (Auto) (0.0-1.0) % Add Manual Diff PT (9.0-12.0) SEC INR (0.9-1.2) APTT (22.0-34.0) SEC D-Dimer, Quantitative (0-400) ng/mL Sodium (136-145) mmol/L Potassium (3.5-5.1) mmol/L Chloride (98-107) mmol/L Carbon Dioxide (21-32) mmol/L Anion Gap (7-13) mEq/L BUN (7-18) mg/dL Creatinine (0.55-1.02) mg/dL Est Cr Clr Drug Dosing mL/min Estimated GFR (MDRD) BUN/Creatinine Ratio (No establ ref range) Glucose (70-99) mg/dL Lactic Acid 1.1 (0.4-2.0) mmol/L Calcium (8.5-10.1) mg/dL Magnesium (1.8-2.4) mg/dL Ferritin 4883 H (8-252) mg/mL Total Bilirubin (0.2-1.0) mg/dL AST (15-37) U/L ALT (14-59) U/L Alkaline Phosphatase (46-116) U/L Lactate Dehydrogenase (81-234) U/L Troponin I High Sens (<=51) pg/mL C-Reactive Protein (0.0-0.9) mg/dL Total Protein (6.4-8.2) g/dL Albumin (3.4-5.0) g/dL Globulin Albumin/Globulin Ratio Amylase (25-115) U/L Lipase (73-393) U/L Meds: Medications Generic Name Dose Route Start Last Admin Trade Name Freq PRN Reason Stop Dose Admin Potassium Chloride 10 meq/ 100 mls @ 100 mls/hr 04/16/21 12:30 Premix IV 04/16/21 13:29 ONETIME ONE Magnesium Sulfate 2 gm/ Premix 50 mls @ 50 mls/hr 04/16/21 12:41 IV 04/16/21 13:40 ONETIME ONE Magnesium Sulfate 2 gm/ Premix 50 mls @ 50 mls/hr 04/16/21 12:41 IV 04/16/21 13:40 ONETIME ONE Sodium Chloride 10 ml 04/16/21 10:52 Sodium Chloride 0.9% 10 Ml Syringe FLUSH ASDIRECTED PRN Keep Vein Open Discontinued Medications Generic Name Dose Route Start Last Admin Trade Name Gm PRN Reason Stop Dose Admin Dexamethasone 6 mg 04/16/21 10:53 04/16/21 12:12 Dexamethasone 4 Mg/Ml Sdv IVPUSH 04/16/21 10:54 6 mg ONETIME ONE Administration Diphenoxylate HCl/Atropine 2 tab 04/16/21 10:55 Atropine/Diphenoxylate 0.025-2.5 Mg Tab PO 04/16/21 10:56 ONETIME ONE Sodium Chloride 1,000 mls @ 999 mls/hr 04/16/21 10:54 Normal Saline IV 04/16/21 11:54 .BOLUS ONE Lidocaine HCl 1 ml 04/16/21 12:30 Lidocaine 1% 30 Ml Sdv INJECT 04/16/21 12:31 ONETIME ONE Ondansetron HCl 4 mg 04/16/21 10:53 04/16/21 12:12 Ondansetron 4 Mg/2 Ml Sdv IV 04/16/21 10:54 4 mg ONETIME ONE Administration Promethazine HCl/Codeine 10 ml 04/16/21 10:54 04/16/21 12:41 Codeine/Promethazine 10-6.25 Mg/5 Ml Syrup 5 Ml Ud Cup PO 04/16/21 10:55 10 ml ONETIME ONE Administration - Radiology Interpretation Free Text/Narrative:: CT Chest/Abd/Pelvis: Extensive multilobar interstitial pneumonia, no acute abdominal findings, see Rad. report. Departure - Departure Time of Disposition: 12:37 (admit to Dr. Charlton) Disposition: Admitted As Inpatient 66 Condition: Fair Clinical Impression: Pneumonia due to COVID-19 virus, Nausea, vomiting, and diarrhea, Dehydration, Hypokalemia, JOVANY (acute kidney injury), Hypomagnesemia - Discharge Information Forms: ED Department Discharge - My Orders Last 24 Hours: My Active Orders 04/16/21 10:51 Blood Culture x2 Reflex Set [OM.PC] Stat 04/16/21 10:52 Peripheral IV Care [RC] . DIRECTED Sodium Chloride 0.9% [Saline Flush] 10 ml FLUSH ASDIRECTED PRN Peripheral IV Insertion Adult [OM.PC] Stat 04/16/21 10:56 Orthostatic Vital Signs [RC] ASDIRECTED 04/16/21 11:06 CBC WITH AUTO DIFF [HEME] Stat CULTURE BLOOD [BC] Stat MANUAL DIFFERENTIAL QA/NC [HEME] Stat 04/16/21 11:11 CULTURE BLOOD [BC] Stat 04/16/21 12:30 Potassium Chloride [KCl in Water 10 MEQ/100 ML] 10 meq Premix Bag 1 bag IV ONETIME 04/16/21 12:41 Magnesium Sulfate/Water [Magnesium Sulfate in Water 2 GM/50 ML] 2 gm Premix Bag 1 bag IV ONETIME Magnesium Sulfate/Water [Magnesium Sulfate in Water 2 GM/50 ML] 2 gm Premix Bag 1 bag IV ONETIME - Assessment/Plan Last 24 Hours: My Active Orders 04/16/21 10:51 Blood Culture x2 Reflex Set [OM.PC] Stat 04/16/21 10:52 Peripheral IV Care [RC] . DIRECTED Sodium Chloride 0.9% [Saline Flush] 10 ml FLUSH ASDIRECTED PRN Peripheral IV Insertion Adult [OM.PC] Stat 04/16/21 10:56 Orthostatic Vital Signs [RC] ASDIRECTED 04/16/21 11:06 CBC WITH AUTO DIFF [HEME] Stat CULTURE BLOOD [BC] Stat MANUAL DIFFERENTIAL QA/NC [HEME] Stat 04/16/21 11:11 CULTURE BLOOD [BC] Stat 04/16/21 12:30 Potassium Chloride [KCl in Water 10 MEQ/100 ML] 10 meq Premix Bag 1 bag IV ONETIME 04/16/21 12:41 Magnesium Sulfate/Water [Magnesium Sulfate in Water 2 GM/50 ML] 2 gm Premix Bag 1 bag IV ONETIME Magnesium Sulfate/Water [Magnesium Sulfate in Water 2 GM/50 ML] 2 gm Premix Bag 1 bag IV ONETIME
[2021-04-16] MEDS ORDERED: Sodium Chloride 0.9% 10 ML Syringe FLUSH PRN (10:52)
[2021-04-16] MEDS ORDERED: Dexamethasone 4 MG/ML SDV IVPUSH ONE (10:53)
[2021-04-16] MEDS ORDERED: Ondansetron 4 MG/2 ML SDV IV ONE (10:53)
[2021-04-16] MEDS ORDERED: Sodium Chloride 0.9% 1,000 ML IV ONE (10:54)
[2021-04-16] MEDS ORDERED: Codeine/Promethazine 10-6.25 MG/5 ML Syrup 5 ML UD Cup PO ONE (10:54)
[2021-04-16] MEDS ORDERED: Atropine/Diphenoxylate 0.025-2.5 MG Tab PO ONE (10:55)
[2021-04-16 11:44] LABS: ANION GAP 20.9 mEq/L (7-13)
[2021-04-16 11:47] LABS: PTT,PARTIAL THROMBOPLSTIN TIME 35.6 SEC (22.0-34.0)
--- NOTE | 2021-04-16 12:21 | CT ---
EXAMINATION: Chest Abdomen Pelvis wo Cont SEX: Female AGE: 50 years CLINICAL HISTORY: 50-year-old female with vomiting and diarrhea who is short of breath (COVID [address] exam abdomen 12 July 2020 revealed "no acute findings" and CT scan chest 31 December 2017 was "negative". PMH of colon perforation, peritonitis, abdominal abscess and pneumothorax/pneumomediastinum (December 2017). COVID+ Scan technique: Volume acquisition of data emergency unenhanced CT scan chest, abdomen and pelvis obtained with the patient lying supine on the Siemens multislice scanner [place], [place]. All data archived in the PACS system for storage, reformatting axial/sagittal/coronal planes and study. Interpretation: Abnormal. 1. Multiple peripheral areas of "groundglass" interstitial pneumonic densities scattered throughout both lung [place]ch[place] have the characteristic appearance of COVID19 infection. No underlying lymphadenopathy or pleural effusions. 2. No alveolar infiltrates, air bronchograms, atelectasis or lobar collapse. 3. Normal cardiac silhouette (size/configuration). No pericardial effusions. No vascular congestion or alveolar edema. 4. Normal caliber thoracic aorta. Marginal spondylosis thoracic lumbar spine otherwise unremarkable. 5. Inhomogeneously dense gallbladder distended right upper quadrant may represent noncalcified stones. Liver, stomach, spleen, pancreas and adrenal glands anatomically correct i.e. negative. Unenhanced kidneys normal size and configuration. No nephrolithiasis or signs of obstructive uropathy. Senescent uterus. 2.5 cm left ovarian cyst. 6. No abdominal or pelvic mass lesion, mesenteric or retroperitoneal lymphadenopathy, inflammatory "dirty" peritoneal fat, signs of mechanical bowel obstruction, ascites or free intraperitoneal air. Several diverticula ascending right colon. CONCLUSION: *Extensive, multilobar interstitial pneumonia. No sign of lung mass, alveolar infiltrate, abdominal malignancy, acute peritonitis or mechanical bowel obstruction.
[2021-04-16] MEDS ORDERED: Lidocaine 1% 30 ML SDV INJECT ONE (12:30)
[2021-04-16] MEDS ORDERED: Potassium Chloride 10 MEQ in Premix Bag 1 BAG IV ONE (12:30)
[2021-04-16] MEDS ORDERED: Magnesium Sulfate/Water 2 GM in Premix Bag 1 BAG IV ONE ×4 (12:41)
[2021-04-16] MEDS ORDERED: Temazepam 15 MG Cap PO PRN (15:43)
--- NOTE | 2021-04-16 15:48 | PCM.HP ---
H&P History of Present Illness - General Date of Service: 04/16/21 Admit Problem/Dx: Admission Diagnosis/Problem Admission Diagnosis/Problem Shortness of breath, syncope, diarrhea, fever, chills Source of Information: Patient - History of Present Illness Initial Comments - Free Text/Narative: Received covid booster (3rd) apr 02 Tested negative for covid on 04/07 Developed n/diarrhea, fever, body aches, sob, ear syncope - started 04/08 came to er on 04/12/21 tested positive for covid discharged home symptoms did not improve presented with profound weakness, 2 syncopal episode on 04/16 - Related Data Allergies/Adverse Reactions: Allergies Allergy/AdvReac Type Severity Reaction Status Date / Time erythromycin lactobionate Allergy Nausea Verified 04/12/21 10:51 [From Erythrocin] Penicillins Allergy Rash Verified 04/12/21 10:51 Home Medications: Home Meds Aspirin [Halfprin] 81 mg PO BEDTIME 01/12/16 [History] RX: Fluticasone Propionate [Flonase] 1 spray NASBOTH DAILY PRN 12/03/17 [History] RX: Omeprazole [Prilosec] 40 mg PO DAILY 12/03/17 [History] RX: Gabapentin [Neurontin] 400 mg PO BEDTIME 04/12/21 [History] predniSONE [Prednisone] 4 mg PO Q48H 04/12/21 [History] Montelukast [Singulair] 10 mg PO DAILY 04/16/21 [History] RX: Fluticasone Propion/Salmeterol [Advair 250-50 Diskus] 1 puff INH BID 04/16/21 [History] RX: mycophenolate mofetiL [Mycophenolate Mofetil] 1,000 mg PO BID 04/16/21 [History] Rosuvastatin [Crestor] 20 mg PO BEDTIME 04/16/21 [History] Past Medical History HEENT History: Reports: Sinusitis Other HEENT History: 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 History: Reports: Endometriosis, Spontaneous Other OB/BYN History: HAS IUD Musculoskeletal History: Reports: SLE Other Musculoskeletal History: LUPUS IN REMISSION Neurological History: Reports: None Psychiatric History: Reports: None Endocrine/Metabolic History: Reports: None Hematologic History: Reports: Anemia, Iron Deficiency Immunologic History: Reports: SLE Other Immunologic History: in remission for 11 years (had for 8 years) Oncologic (Cancer) History: Reports: None Dermatologic History: Reports: Cellulitis Other Dermatologic History: esinophyllic cellulitis - Infectious Disease History Infectious Disease History: Reports: Chicken Pox, Shingles - Past Surgical History Head Surgeries/Procedures: Reports: None HEENT Surgical History: Reports: Adenoidectomy, Cataract Surgery, Eye Surgery, Tonsillectomy, Other (See Below) Other HEENT Surgeries/Procedures: corneal transplant Cardiovascular Surgical History: Reports: None Respiratory Surgical History: Reports: None GI Surgical History: Reports: Colonoscopy, Hernia, Inguinal Female Surgical History: Reports: Other (See Below) Other Female Surgeries/Procedures: kidney biopsy Social & Family History - Family History Family Medical History: No Pertinent Family History - Tobacco Use Tobacco Use Status *Q: Never Tobacco User - Caffeine Use Caffeine Use: Reports: None Other Caffeine Use: 16. oz - Recreational Drug Use Recreational Drug Use: No - Living Situation & Occupation Living situation: Reports: with Family Occupation: Employed H&P Review of Systems - Review of Systems: Review Of Systems: See Below General: Reports: Fever, Chills, Malaise Pulmonary: Reports: Shortness of Breath, Cough. Denies: Wheezing Cardiovascular: Reports: Palpitations, Syncope. Denies: Edema Gastrointestinal: Reports: Diarrhea, Nausea. Denies: Abdominal Pain Psychiatric: Denies: Confusion Neurological: Reports: Dizziness, Headache Exam - Exam Exam: See Below - Vital Signs Vital Signs: Orthostatic Blood Pressure [ 76/58 Standing] Orthostatic Blood Pressure [ 83/57 Sitting] Orthostatic Blood Pressure [ 88/56 Supine] Weight: 143 lb 3.2 oz - Exam Quality Assessment: No: Supplemental Oxygen General: Alert, Oriented Neck: Supple Lungs: Normal Respiratory Effort, Rhonchi Cardiovascular: Regular Rate, Regular Rhythm GI/Abdominal Exam: Normal Bowel Sounds, Soft, Non-Tender Extremities: No Pedal Edema - Patient Data Lab Results Last 24 hrs: Laboratory Results - last 24 hr 04/16/21 04/16/21 04/16/21 Range/Units 11:06 11:06 11:06 WBC 11.1 H (5.0-10.0) 10^3/uL RBC 3.86 L (4.2-5.4) 10^6/uL Hgb 11.4 L (12.0-16.0) g/dL Hct 34.4 L (37.0-47.0) % MCV 89.1 (80-100) fL MCH 29.5 (27.0-34.0) pg MCHC 33.1 (33.0-35.0) g/dL Plt Count 292 D (150-450) 10^3/uL Neut % (Auto) 90.8 H (42.2-75.2) % Lymph % (Auto) 4.3 L (20.5-50.1) % [place] % (Auto) 4.4 (2-8) % Eos % (Auto) 0.4 L (1.0-3.0) % Baso % (Auto) 0.1 (0.0-1.0) % Add Manual Diff Yes Neutrophils % (Manual) 65 (42-75) % Band Neutrophils % 28 % Lymphocytes % (Manual) 5 L (20-50) % Monocytes % (Manual) 2 (2-8) % PT 12.5 H (9.0-12.0) SEC INR 1.3 H (0.9-1.2) APTT 35.6 H (22.0-34.0) SEC D-Dimer, Quantitative 605 H (0-400) ng/mL Sodium 135 L (136-145) mmol/L Potassium 2.9 L (3.5-5.1) mmol/L Chloride 98 (98-107) mmol/L Carbon Dioxide 19 L (21-32) mmol/L Anion Gap 20.9 H (7-13) mEq/L BUN 20 H (7-18) mg/dL Creatinine 2.16 H (0.55-1.02) mg/dL Est Cr Clr Drug Dosing 23.51 mL/min Estimated GFR (MDRD) 24 BUN/Creatinine Ratio 9.3 (No establ ref range) Glucose 161 H (70-99) mg/dL Lactic Acid (0.4-2.0) mmol/L Calcium 7.9 L (8.5-10.1) mg/dL Magnesium 0.9 L (1.8-2.4) mg/dL Ferritin (8-252) mg/mL Total Bilirubin 0.3 (0.2-1.0) mg/dL AST 122 H (15-37) U/L ALT 112 H (14-59) U/L Alkaline Phosphatase 56 (46-116) U/L Lactate Dehydrogenase 416 H (81-234) U/L Troponin I High Sens 12 (<=51) pg/mL C-Reactive Protein 18.3 H (0.0-0.9) mg/dL Total Protein 7.1 (6.4-8.2) g/dL Albumin 2.9 L (3.4-5.0) g/dL Globulin 4.2 Albumin/Globulin Ratio 0.69 Amylase 62 (25-115) U/L Lipase 71 L (73-393) U/L 04/16/21 04/16/21 Range/Units 11:06 11:06 WBC (5.0-10.0) 10^3/uL RBC (4.2-5.4) 10^6/uL Hgb (12.0-16.0) g/dL Hct (37.0-47.0) % MCV (80-100) fL MCH (27.0-34.0) pg MCHC (33.0-35.0) g/dL Plt Count (150-450) 10^3/uL Neut % (Auto) (42.2-75.2) % Lymph % (Auto) (20.5-50.1) % [place]ague % (Auto) (2-8) % Eos % (Auto) (1.0-3.0) % Baso % (Auto) (0.0-1.0) % Add Manual Diff Neutrophils % (Manual) (42-75) % Band Neutrophils % % Lymphocytes % (Manual) (20-50) % Monocytes % (Manual) (2-8) % PT (9.0-12.0) SEC INR (0.9-1.2) APTT (22.0-34.0) SEC D-Dimer, Quantitative (0-400) ng/mL Sodium (136-145) mmol/L Potassium (3.5-5.1) mmol/L Chloride (98-107) mmol/L Carbon Dioxide (21-32) mmol/L Anion Gap (7-13) mEq/L BUN (7-18) mg/dL Creatinine (0.55-1.02) mg/dL Est Cr Clr Drug Dosing mL/min Estimated GFR (MDRD) BUN/Creatinine Ratio (No establ ref range) Glucose (70-99) mg/dL Lactic Acid 1.1 (0.4-2.0) mmol/L Calcium (8.5-10.1) mg/dL Magnesium (1.8-2.4) mg/dL Ferritin 4883 H (8-252) mg/mL Total Bilirubin (0.2-1.0) mg/dL AST (15-37) U/L ALT (14-59) U/L Alkaline Phosphatase (46-116) U/L Lactate Dehydrogenase (81-234) U/L Troponin I High Sens (<=51) pg/mL C-Reactive Protein (0.0-0.9) mg/dL Total Protein (6.4-8.2) g/dL Albumin (3.4-5.0) g/dL Globulin Albumin/Globulin Ratio Amylase (25-115) U/L Lipase (73-393) U/L Result Diagrams: 04/16/21 11:06 04/16/21 11:06 - Problem List (1) Hypokalemia SNOMED Code(s): 47253854 ICD Code: E87.6 - HYPOKALEMIA Status: Acute Current Visit: Yes (2) ROGERIO (acute kidney injury) SNOMED Code(s): 34756982, 59424897 ICD Code: N17.9 - ACUTE KIDNEY FAILURE, UNSPECIFIED Status: Acute Current Visit: No (3) COVID SNOMED Code(s): 075788944 ICD Code: U07.1 - COVID-19 Status: Acute Current Visit: No (4) Nausea & vomiting SNOMED Code(s): 10063717 ICD Code: R11.2 - NAUSEA WITH VOMITING, UNSPECIFIED Status: Acute Current Visit: No Qualifiers: Vomiting type: unspecified Vomiting Intractability: non-intractable Qualified Code(s): R11.2 - Nausea with vomiting, unspecified (5) Nausea, vomiting, and diarrhea SNOMED Code(s): 3609170 ICD Code: R11.2 - NAUSEA WITH VOMITING, UNSPECIFIED; R19.7 - DIARRHEA, UNSPECIFIED Status: Acute Current Visit: No (6) Pneumonia due to COVID-19 virus SNOMED Code(s): 200545403906442419 ICD Code: U07.1 - COVID-19; J12.82 - PNEUMONIA DUE TO CORONAVIRUS DISEASE 2019 Status: Acute Current Visit: No (7) Viral syndrome SNOMED Code(s): 27585093 ICD Code: B34.9 - VIRAL INFECTION, UNSPECIFIED Status: Acute Current Visit: No Problem List Initiated/Reviewed/Updated: Yes Orders Last 24hrs: Active Orders 24 hr Category Date Time Status Patient Status [ADT] Routine ADT 04/16/21 13:53 Active Antiembolic Devices [RC] PER UNIT ROUTINE Care 04/16/21 15:43 Ordered Orthostatic Vital Signs [RC] ASDIRECTED Care 04/16/21 10:56 Active Oxygen Therapy [RC] PRN Care 04/16/21 15:43 Ordered Up With Assistance [RC] ASDIRECTED Care 04/16/21 15:43 Ordered VTE/DVT Education [RC] PER UNIT ROUTINE Care 04/16/21 15:43 Ordered Vital Signs [RC] Q4H Care 04/16/21 15:43 Ordered Full Liquid Diet [DIET] Diet 04/16/21 Dinner Ordered BASIC METABOLIC PANEL,BMP [CHEM] AM Lab 04/18/21 05:11 Ordered BASIC METABOLIC PANEL,BMP [CHEM] AM Lab 04/19/21 05:11 Ordered BASIC METABOLIC PANEL,BMP [CHEM] AM Lab 04/20/21 05:11 Ordered BASIC METABOLIC PANEL,BMP [CHEM] AM Lab 04/21/21 05:11 Ordered BASIC METABOLIC PANEL,BMP [CHEM] AM Lab 04/22/21 05:11 Ordered BASIC METABOLIC PANEL,BMP [CHEM] AM Lab 04/23/21 05:11 Ordered BASIC METABOLIC PANEL,BMP [CHEM] AM Lab 04/24/21 05:11 Ordered BASIC METABOLIC PANEL,BMP [CHEM] AM Lab 04/25/21 05:11 Ordered BASIC METABOLIC PANEL,BMP [CHEM] AM Lab 04/26/21 05:11 Ordered BASIC METABOLIC PANEL,BMP [CHEM] AM Lab 04/27/21 05:11 Ordered BASIC METABOLIC PANEL,BMP [CHEM] AM Lab 04/28/21 05:11 Ordered BASIC METABOLIC PANEL,BMP [CHEM] AM Lab 04/29/21 05:11 Ordered BASIC METABOLIC PANEL,BMP [CHEM] AM Lab 04/30/21 05:11 Ordered BASIC METABOLIC PANEL,BMP [CHEM] AM Lab 05/01/21 05:11 Ordered CBC WITH AUTO DIFF [HEME] AM Lab 04/18/21 05:11 Ordered CBC WITH AUTO DIFF [HEME] AM Lab 04/19/21 05:11 Ordered CBC WITH AUTO DIFF [HEME] AM Lab 04/20/21 05:11 Ordered CBC WITH AUTO DIFF [HEME] AM Lab 04/21/21 05:11 Ordered CBC WITH AUTO DIFF [HEME] AM Lab 04/22/21 05:11 Ordered CBC WITH AUTO DIFF [HEME] AM Lab 04/23/21 05:11 Ordered CBC WITH AUTO DIFF [HEME] AM Lab 04/24/21 05:11 Ordered CBC WITH AUTO DIFF [HEME] AM Lab 04/25/21 05:11 Ordered CBC WITH AUTO DIFF [HEME] AM Lab 04/26/21 05:11 Ordered CBC WITH AUTO DIFF [HEME] AM Lab 04/27/21 05:11 Ordered CBC WITH AUTO DIFF [HEME] AM Lab 04/28/21 05:11 Ordered CBC WITH AUTO DIFF [HEME] AM Lab 04/29/21 05:11 Ordered CBC WITH AUTO DIFF [HEME] AM Lab 04/30/21 05:11 Ordered CBC WITH AUTO DIFF [HEME] AM Lab 05/01/21 05:11 Ordered CLOSTRIDIUM DIFFICILE TOX RFLX [MREF] Routine Lab 04/16/21 15:40 Ordered CULTURE BLOOD [BC] Stat Lab 04/16/21 11:06 Received CULTURE BLOOD [BC] Stat Lab 04/16/21 11:11 Received DD [D-DIMER QUANTITATIVE] [COAG] AM Lab 04/17/21 05:11 Ordered DD [D-DIMER QUANTITATIVE] [COAG] AM Lab 04/18/21 05:11 Ordered DD [D-DIMER QUANTITATIVE] [COAG] AM Lab 04/19/21 05:11 Ordered DD [D-DIMER QUANTITATIVE] [COAG] AM Lab 04/20/21 05:11 Ordered DD [D-DIMER QUANTITATIVE] [COAG] AM Lab 04/21/21 05:11 Ordered DD [D-DIMER QUANTITATIVE] [COAG] AM Lab 04/22/21 05:11 Ordered DD [D-DIMER QUANTITATIVE] [COAG] AM Lab 04/23/21 05:11 Ordered DD [D-DIMER QUANTITATIVE] [COAG] AM Lab 04/24/21 05:11 Ordered DD [D-DIMER QUANTITATIVE] [COAG] AM Lab 04/25/21 05:11 Ordered DD [D-DIMER QUANTITATIVE] [COAG] AM Lab 04/26/21 05:11 Ordered DD [D-DIMER QUANTITATIVE] [COAG] AM Lab 04/27/21 05:11 Ordered DD [D-DIMER QUANTITATIVE] [COAG] AM Lab 04/28/21 05:11 Ordered DD [D-DIMER QUANTITATIVE] [COAG] AM Lab 04/29/21 05:11 Ordered DD [D-DIMER QUANTITATIVE] [COAG] AM Lab 04/30/21 05:11 Ordered HEPATIC FUNCTION PANEL,[facility] [CHEM] AM Lab 04/17/21 05:11 Ordered HEPATIC FUNCTION PANEL,[facility] [CHEM] AM Lab 04/18/21 05:11 Ordered HEPATIC FUNCTION PANEL,[facility] [CHEM] AM Lab 04/19/21 05:11 Ordered HEPATIC FUNCTION PANEL,[facility] [CHEM] AM Lab 04/20/21 05:11 Ordered HEPATIC FUNCTION PANEL,[facility] [CHEM] AM Lab 04/21/21 05:11 Ordered HEPATIC FUNCTION PANEL,[facility] [CHEM] AM Lab 04/22/21 05:11 Ordered HEPATIC FUNCTION PANEL,[facility] [CHEM] AM Lab 04/23/21 05:11 Ordered HEPATIC FUNCTION PANEL,[facility] [CHEM] AM Lab 04/24/21 05:11 Ordered HEPATIC FUNCTION PANEL,[facility] [CHEM] AM Lab 04/25/21 05:11 Ordered HEPATIC FUNCTION PANEL,[facility] [CHEM] AM Lab 04/26/21 05:11 Ordered HEPATIC FUNCTION PANEL,[facility] [CHEM] AM Lab 04/27/21 05:11 Ordered HEPATIC FUNCTION PANEL,[facility] [CHEM] AM Lab 04/28/21 05:11 Ordered HEPATIC FUNCTION PANEL,[facility] [CHEM] AM Lab 04/29/21 05:11 Ordered HEPATIC FUNCTION PANEL,[facility] [CHEM] AM Lab 04/30/21 05:11 Ordered PROCALCITONIN [REF] DAILY Lab 04/17/21 05:00 Ordered PROCALCITONIN [REF] DAILY Lab 04/18/21 05:00 Ordered PROCALCITONIN [REF] DAILY Lab 04/19/21 05:00 Ordered PROCALCITONIN [REF] DAILY Lab 04/20/21 05:00 Ordered PROCALCITONIN [REF] DAILY Lab 04/21/21 05:00 Ordered PROCALCITONIN [REF] DAILY Lab 04/22/21 05:00 Ordered PROCALCITONIN [REF] DAILY Lab 04/23/21 05:00 Ordered PROCALCITONIN [REF] DAILY Lab 04/24/21 05:00 Ordered PROCALCITONIN [REF] DAILY Lab 04/25/21 05:00 Ordered PROCALCITONIN [REF] DAILY Lab 04/26/21 05:00 Ordered PROCALCITONIN [REF] DAILY Lab 04/27/21 05:00 Ordered PROCALCITONIN [REF] DAILY Lab 04/28/21 05:00 Ordered PROCALCITONIN [REF] DAILY Lab 04/29/21 05:00 Ordered PROCALCITONIN [REF] DAILY Lab 04/30/21 05:00 Ordered Acetaminophen [TylenoL] Med 04/16/21 15:43 Ordered 650 mg PO Q4H PRN Aspirin [Halfprin] Med 04/16/21 21:00 Ordered 81 mg PO BEDTIME Cholecalciferol (Vitamin D3) [Vitamin D3] Med 04/17/21 09:00 Ordered 25 mcg PO DAILY Enoxaparin [Lovenox] Med 04/16/21 21:00 Ordered 30 mg SUBCUT BID Fluticasone Propion/Salmeterol Med 04/16/21 21:00 Ordered 1 puff INH BID Gabapentin [Neurontin] Med 04/16/21 21:00 Ordered 400 mg PO BEDTIME Montelukast [Singulair] Med 04/17/21 09:00 Ordered 10 mg PO DAILY Multivitamins/Minerals [Vitamins and Minerals] Med 04/17/21 08:00 Ordered 1 tab PO WITHBREAKFAST NS + KCl 20mEq/L [Normal Saline with 20 mEq KCl] 1,000 Med 04/16/21 15:30 Active ml IV ASDIRECTED Omeprazole [Prilosec] Med 04/17/21 09:00 Ordered 40 mg PO DAILY Ondansetron [Zofran] Med 04/16/21 18:00 Ordered 4 mg IVPUSH Q6HR Potassium Chloride [KCl in Water 10 MEQ/100 ML] 10 meq Med 04/16/21 15:45 Ordered Premix Bag 1 bag IV Q2H Remdesivir 100 mg Med 04/17/21 15:45 Ordered Sodium Chloride 0.9% [Normal Saline AdvBag] 100 ml IV Q24H Sodium Chloride 0.9% [Saline Flush] Med 04/16/21 10:52 Active 10 ml FLUSH ASDIRECTED PRN Temazepam [Restoril] Med 04/16/21 15:43 Ordered 15 mg PO BEDTIME PRN dexAMETHasone Med 04/17/21 08:00 Ordered 6 mg PO DAILY@0800 mycophenolate mofetiL [Mycophenolate Mofetil] Med 04/16/21 21:00 Ordered 1,000 mg PO BID oxyCODONE Med 04/16/21 15:43 Ordered 5 mg PO Q4H PRN Antiembolic Hose [OM.PC] Per Unit Routine Oth 04/16/21 15:43 Ordered Blood Culture x2 Reflex Set [OM.PC] Stat Oth 04/16/21 10:51 Ordered Isolation [COMM] Stat Oth 04/16/21 15:41 Ordered Peripheral IV Insertion Adult [OM.PC] Stat Oth 04/16/21 10:52 Ordered Resuscitation Status Routine Resus Stat 04/16/21 15:43 Ordered Medication Orders Acetaminophen (Acetaminophen 325 Mg Tab) 650 mg PO Q4H PRN PRN Reason: Pain (Mild 1-3)/fever Aspirin (Aspirin 81 Mg Tab.Ec) 81 mg PO BEDTIME DEONTE Cholecalciferol (Cholecalciferol (Vitamin D3) 25 Mcg Tab) 25 mcg PO DAILY DEONTE Dexamethasone (Dexamethasone 6 Mg Tablet) 6 mg PO DAILY@0800 DEONTE Enoxaparin Sodium (Enoxaparin 30 Mg/0.3 Ml Syringe) 30 mg SUBCUT BID DEONTE Gabapentin (Gabapentin 400 Mg Cap) 400 mg PO BEDTIME DEONTE Potassium Chloride/Sodium Chloride (Normal Saline With 20 Meq Kcl) 1,000 mls @ 50 mls/hr IV ASDIRECTED DEONTE Remdesivir 100 mg/ Sodium (Chloride) 100 mls @ 100 mls/hr IV Q24H DEONTE Stop: 04/20/21 16:44 Potassium Chloride 10 meq/ (Premix) 100 mls @ 100 mls/hr IV Q2H DEONTE Stop: 04/16/21 22:44 Montelukast Sodium (Montelukast 10 Mg Tab) 10 mg PO DAILY [facility] Multivitamins/Minerals (Multivitamins, Therapeutic With Minerals Tab) 1 tab PO WITHBREAKFAST DEONTE Non-Formulary Medication (Fluticasone Propion/Salmeterol) 1 puff INH BID DEONTE Non-Formulary Medication (Mycophenolate Mofetil [Mycophenolate Mofetil]) 1,000 mg PO BID DEONTE Non-Formulary Medication (Omeprazole [Prilosec]) 40 mg PO DAILY DEONTE Ondansetron HCl (Ondansetron 4 Mg/2 Ml Sdv) 4 mg IVPUSH Q6HR DEONTE Oxycodone HCl (Oxycodone 5 Mg Tab) 5 mg PO Q4H PRN PRN Reason: Pain (moderate 4-6) Sodium Chloride (Sodium Chloride 0.9% 10 Ml Syringe) 10 ml FLUSH ASDIRECTED PRN PRN Reason: Keep Vein Open Last Admin: 04/16/21 13:03 Dose: 10 ml Documented by: LYNDA Temazepam (Temazepam 15 Mg Cap) 15 mg PO BEDTIME PRN PRN Reason: Sleep Assessment/Plan Comment:: Received covid booster () apr 02 Tested negative for covid on 04/07 Developed n/diarrhea, fever, body aches, sob, ear syncope - started 04/08 came to er on 04/12/21 tested positive for covid discharged home symptoms did not improve presented with profound weakness, 2 syncopal episode on 04/16 In er noted to have hypotension, hypoxemia, severe hypokalemia Acute covid 19 pneumonia in immunocompromised patient As seen on ct 04/16/21 Vaccination status: vaccinated Symptom onset: about 04/08/21 Covid test positive: 04/12/21 Treat with dexamethasone Treat with remdesivir Treat with mvi /vit d Follow daily cbc, bmp, trop, procal, ddimer Evaluations for concurrent bacterial pneumonia: Procalcitonin: pending Hold Abx for now Evaluations for thrombotic complications Ddimer: mildly increased Prophylaxis: use bid lovenox 30 mg adjusted to renal status Nausea, diarrhea due to covid infection Treat symptomatically Check c diff Severe hypokalemia secondary to low oral intake, nausea, diarrhea Give IV KCL supplement Recheck in AM Rogerio With h/o CKD III Will give small amount of gentle IVF h/o diet controlled DM follow fasting BS Hyponatremia Mld 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 Koo
[2021-04-16] MEDS: NS + KCl 20mEq/L 1,000 ML IV SCH (15:55)
[2021-04-16] MEDS ORDERED: REMDESIVIR 200 MG in Sodium Chloride 0.9% 250 ML IV ONE (16:30)
[2021-04-16] MEDS ORDERED: Potassium Chloride 100 ML ONE (17:17)
[2021-04-16] MEDS: Potassium Chloride 10 MEQ in Premix Bag 1 BAG IV SCH ×2 (18:53→22:24)
[2021-04-16] MEDS: Ondansetron 4 MG/2 ML SDV IVPUSH SCH (18:56)
[2021-04-16] MEDS: Formoterol/Mometasone 200-5 MCG 8.8 GM Inhaler IH SCH (20:38)
[2021-04-16] MEDS: Mycophenolate Mofetil 250 MG Cap PO SCH (20:38)
[2021-04-16] MEDS: Enoxaparin 30 MG/0.3 ML Syringe SUBCUT SCH (20:39)
[2021-04-16] MEDS: Aspirin 81 MG Tab.EC PO SCH (20:39)
[2021-04-16] MEDS: Gabapentin 400 MG Cap PO SCH (20:39)
[2021-04-16] MEDS: guaiFENesin 100 MG/5 ML Soln 5 ML UD Cup PO PRN (22:24)
[2021-04-17] MEDS: Potassium Chloride 10 MEQ in Premix Bag 1 BAG IV SCH ×4 (00:11→06:21)
[2021-04-17] MEDS: Ondansetron 4 MG/2 ML SDV IVPUSH SCH ×4 (00:45→19:17)
[2021-04-17] MEDS: Omeprazole 20 MG Cap.CR PO SCH (06:21)
[2021-04-17] MEDS: guaiFENesin 100 MG/5 ML Soln 5 ML UD Cup PO PRN ×3 (06:21→19:46)
[2021-04-17 09:30] LABS: ANION GAP 21.5 mEq/L (7-13)
[2021-04-17] MEDS: Dexamethasone 6 MG TABLET PO SCH (09:49)
[2021-04-17] MEDS: Mycophenolate Mofetil 250 MG Cap PO SCH ×2 (09:49→21:16)
[2021-04-17] MEDS: Multivitamins, Therapeutic with Minerals Tab PO SCH (09:49)
[2021-04-17] MEDS: Cholecalciferol (Vitamin D3) 25 MCG Tab PO SCH (09:49)
[2021-04-17] MEDS: Montelukast 10 MG Tab PO SCH (09:49)
[2021-04-17] MEDS: Formoterol/Mometasone 200-5 MCG 8.8 GM Inhaler IH SCH ×2 (09:50→21:14)
[2021-04-17] MEDS: Enoxaparin 30 MG/0.3 ML Syringe SUBCUT SCH ×2 (09:50→21:15)
[2021-04-17] MEDS: Acetaminophen 325 MG Tab PO PRN ×2 (11:17→19:40)
[2021-04-17] MEDS: NS + KCl 20mEq/L 1,000 ML IV SCH (13:21)
--- NOTE | 2021-04-17 14:40 | PCM.PN ---
- General Info Date of Service: 04/17/21 Subjective Update: continues to have moderate cough, no associated sputum has chest pain with cough has been on 2 l nc oxygen supplement diarrhea is better but still had loose bms no more dizziness, not lightheaded - Patient Data Vitals - Most Recent: Last Vital Signs Temp 98.1 F 04/17/21 12:22 Pulse 84 04/17/21 12:22 Resp 16 04/17/21 12:22 BP 99/65 04/17/21 12:22 Pulse Ox 91 L 04/17/21 12:22 Orthostatic Blood Pressure [ 76/58 Standing] Orthostatic Blood Pressure [ 83/57 Sitting] Orthostatic Blood Pressure [ 88/56 Supine] Weight - Most Recent: 144 lb 4.8 oz Lab Results Last 24 Hours: Laboratory Results - last 24 hr 04/17/21 04/17/21 04/17/21 Range/Units 06:42 06:42 06:42 WBC (5.0-10.0) 10^3/uL RBC (4.2-5.4) 10^6/uL Hgb (12.0-16.0) g/dL Hct (37.0-47.0) % MCV (80-100) fL MCH (27.0-34.0) pg MCHC (33.0-35.0) g/dL Plt Count (150-450) 10^3/uL Neut % (Auto) (42.2-75.2) % Lymph % (Auto) (20.5-50.1) % [place] % (Auto) (2-8) % Eos % (Auto) (1.0-3.0) % Baso % (Auto) (0.0-1.0) % Add Manual Diff D-Dimer, Quantitative 718 H (0-400) ng/mL Sodium 136 (136-145) mmol/L Potassium 4.5 D (3.5-5.1) mmol/L Chloride 103 (98-107) mmol/L Carbon Dioxide 16 L (21-32) mmol/L Anion Gap 21.5 H (7-13) mEq/L BUN 21 H (7-18) mg/dL Creatinine 1.55 H (0.55-1.02) mg/dL Est Cr Clr Drug Dosing 32.77 mL/min Estimated GFR (MDRD) 35 Glucose 156 H (70-99) mg/dL Calcium 7.7 L (8.5-10.1) mg/dL Total Bilirubin 0.2 (0.2-1.0) mg/dL Direct Bilirubin 0.1 (0.0-0.2) mg/dL Indirect Bilirubin 0.1 AST 331 H (15-37) U/L ALT 299 H (14-59) U/L Alkaline Phosphatase 57 (46-116) U/L Total Protein 6.9 (6.4-8.2) g/dL Albumin 2.7 L (3.4-5.0) g/dL Globulin 4.2 Albumin/Globulin Ratio 0.64 11// Range/Units 06:42 WBC 13.5 H (5.0-10.0) 10^3/uL RBC 3.75 L (4.2-5.4) 10^6/uL Hgb 11.0 L (12.0-16.0) g/dL Hct 33.8 L (37.0-47.0) % MCV 90.1 (80-100) fL MCH 29.3 (27.0-34.0) pg MCHC 32.5 L (33.0-35.0) g/dL Plt Count 330 (150-450) 10^3/uL Neut % (Auto) 89.5 H (42.2-75.2) % Lymph % (Auto) 5.3 L (20.5-50.1) % [place] % (Auto) 5.0 (2-8) % Eos % (Auto) 0.1 L (1.0-3.0) % Baso % (Auto) 0.1 (0.0-1.0) % Add Manual Diff D-Dimer, Quantitative (0-400) ng/mL Sodium (136-145) mmol/L Potassium (3.5-5.1) mmol/L Chloride (98-107) mmol/L Carbon Dioxide (21-32) mmol/L Anion Gap (7-13) mEq/L BUN (7-18) mg/dL Creatinine (0.55-1.02) mg/dL Est Cr Clr Drug Dosing mL/min Estimated GFR (MDRD) Glucose (70-99) mg/dL Calcium (8.5-10.1) mg/dL Total Bilirubin (0.2-1.0) mg/dL Direct Bilirubin (0.0-0.2) mg/dL Indirect Bilirubin AST (15-37) U/L ALT (14-59) U/L Alkaline Phosphatase (46-116) U/L Total Protein (6.4-8.2) g/dL Albumin (3.4-5.0) g/dL Globulin Albumin/Globulin Ratio Conner Results Last 24 Hours: Microbiology 04/16/21 11:11 Aerobic Blood Culture - Preliminary Blood - Arm, Right NO GROWTH AFTER 1 DAY Anaerobic Blood Culture - Preliminary NO GROWTH AFTER 1 DAY 04/16/21 11:06 Aerobic Blood Culture - Preliminary Blood - Arm, Left NO GROWTH AFTER 1 DAY Anaerobic Blood Culture - Preliminary NO GROWTH AFTER 1 DAY Med Orders - Current: Current Medications Acetaminophen (Acetaminophen 325 Mg Tab) 650 mg PO Q4H PRN PRN Reason: Pain (Mild 1-3)/fever Last Admin: 04/17/21 11:17 Dose: 650 mg Documented by: Aspirin (Aspirin 81 Mg Tab.Ec) 81 mg PO BEDTIME [facility] Last Admin: 04/16/21 20:39 Dose: 81 mg Documented by: Cholecalciferol (Cholecalciferol (Vitamin D3) 25 Mcg Tab) 25 mcg PO DAILY [facility] Last Admin: 04/17/21 09:49 Dose: 25 mcg Documented by: Dexamethasone (Dexamethasone 6 Mg Tablet) 6 mg PO DAILY@0800 [facility] Last Admin: 04/17/21 09:49 Dose: 6 mg Documented by: Enoxaparin Sodium (Enoxaparin 30 Mg/0.3 Ml Syringe) 30 mg SUBCUT BID [facility] Last Admin: 04/17/21 09:50 Dose: 30 mg Documented by: Gabapentin (Gabapentin 400 Mg Cap) 400 mg PO BEDTIME [facility] Last Admin: 04/16/21 20:39 Dose: 400 mg Documented by: Guaifenesin (Guaifenesin 100 Mg/5 Ml Soln 5 Ml Ud Cup) 100 mg PO Q6H PRN PRN Reason: Cough Last Admin: 04/17/21 12:24 Dose: 100 mg Documented by: Mometasone Furoate/Formoterol Fumar (Formoterol/Mometasone 200-5 Mcg 8.8 Gm Inhaler) 2 puff IH BID [facility] Last Admin: 04/17/21 09:50 Dose: 2 puff Documented by: Montelukast Sodium (Montelukast 10 Mg Tab) 10 mg PO DAILY [facility] Last Admin: 04/17/21 09:49 Dose: 10 mg Documented by: Multivitamins/Minerals (Multivitamins, Therapeutic With Minerals Tab) 1 tab PO WITHBREAKFAST [facility] Last Admin: 04/17/21 09:49 Dose: 1 tab Documented by: Mycophenolate Mofetil (Mycophenolate Mofetil 250 Mg Cap) 1,000 mg PO BID [facility] Last Admin: 04/17/21 09:49 Dose: 1,000 mg Documented by: Omeprazole (Omeprazole 20 Mg Cap.Cr) 40 mg PO ACBRK [facility] Last Admin: 04/17/21 06:21 Dose: 40 mg Documented by: Ondansetron HCl (Ondansetron 4 Mg/2 Ml Sdv) 4 mg IVPUSH Q6HR [facility] Last Admin: 04/17/21 12:25 Dose: Not Given Documented by: Oxycodone HCl (Oxycodone 5 Mg Tab) 5 mg PO Q4H PRN PRN Reason: Pain (moderate 4-6) Sodium Chloride (Sodium Chloride 0.9% 10 Ml Syringe) 10 ml FLUSH ASDIRECTED PRN PRN Reason: Keep Vein Open Last Admin: 04/16/21 13:03 Dose: 10 ml Documented by: Temazepam (Temazepam 15 Mg Cap) 15 mg PO BEDTIME PRN PRN Reason: Sleep Discontinued Medications Dexamethasone (Dexamethasone 4 Mg/Ml Sdv) 6 mg IVPUSH ONETIME ONE Stop: 04/16/21 10:54 Last Admin: 04/16/21 12:12 Dose: 6 mg Documented by: Diphenoxylate HCl/Atropine (Atropine/Diphenoxylate 0.025-2.5 Mg Tab) 2 tab PO ONETIME ONE Stop: 04/16/21 10:56 Last Admin: 04/16/21 11:05 Dose: 2 tab Documented by: Sodium Chloride (Normal Saline) 1,000 mls @ 999 mls/hr IV .BOLUS ONE Stop: 04/16/21 11:54 Last Admin: 04/16/21 13:04 Dose: 999 mls/hr Documented by: Potassium Chloride 10 meq/ (Premix) 100 mls @ 100 mls/hr IV ONETIME ONE Stop: 04/16/21 13:29 Last Admin: 04/16/21 13:02 Dose: 100 mls/hr Documented by: Magnesium Sulfate 2 gm/ Premix 50 mls @ 50 mls/hr IV ONETIME ONE Stop: 04/16/21 13:40 Last Admin: 04/16/21 13:02 Dose: 50 mls/hr Documented by: Magnesium Sulfate 2 gm/ Premix 50 mls @ 50 mls/hr IV ONETIME ONE Stop: 04/16/21 13:40 Last Admin: 04/16/21 14:09 Dose: 50 mls/hr Documented by: Potassium Chloride/Sodium Chloride (Normal Saline With 20 Meq Kcl) 1,000 mls @ 50 mls/hr IV ASDIRECTED [facility] Last Admin: 04/17/21 13:21 Dose: 50 mls/hr Documented by: Remdesivir 100 mg/ Sodium (Chloride) 100 mls @ 100 mls/hr IV Q24H [facility] Stop: 04/20/21 16:59 Potassium Chloride 10 meq/ (Premix) 100 mls @ 100 mls/hr IV Q2H [facility] Stop: 04/16/21 22:59 Last Admin: 04/17/21 00:12 Dose: Not Given Documented by: Remdesivir 200 mg/ Sodium (Chloride) 250 mls @ 250 mls/hr IV ONETIME ONE Stop: 04/16/21 17:29 Last Admin: 04/16/21 18:31 Dose: 250 mls/hr Documented by: Potassium Chloride (Kcl In Water 10 Meq/100 Ml) Confirm Administered Dose 100 mls @ as directed .ROUTE .STK-MED ONE Stop: 04/16/21 17:18 Last Admin: 04/17/21 00:10 Dose: Not Given Documented by: Potassium Chloride 10 meq/ (Premix) 100 mls @ 25 mls/hr IV Q4H [facility] Stop: 04/17/21 10:29 Last Admin: 04/17/21 06:21 Dose: 25 mls/hr Documented by: Lidocaine HCl (Lidocaine 1% 30 Ml Sdv) 1 ml INJECT ONETIME ONE Stop: 04/16/21 12:31 Last Admin: 04/16/21 13:03 Dose: 1 ml Documented by: Ondansetron HCl (Ondansetron 4 Mg/2 Ml Sdv) 4 mg IV ONETIME ONE Stop: 04/16/21 10:54 Last Admin: 04/16/21 12:12 Dose: 4 mg Documented by: Promethazine HCl/Codeine (Codeine/Promethazine 10-6.25 Mg/5 Ml Syrup 5 Ml Ud Cup) 10 ml PO ONETIME ONE Stop: 04/16/21 10:55 Last Admin: 04/16/21 12:41 Dose: 10 ml Documented by: - Exam Quality Assessment: Supplemental Oxygen General: Alert, Oriented Neck: Supple Lungs: Rhonchi (r>l) Cardiovascular: Regular Rate, Regular Rhythm GI/Abdominal Exam: Normal Bowel Sounds, Soft, Non-Tender Extremities: No Pedal Edema Skin: Warm, Dry Neurological: No New Focal Deficit Psy/Mental Status: Alert, Normal Affect, Normal Mood - Patient Data Lab Results Last 24 hrs: Laboratory Results - last 24 hr 04/17/21 04/17/21 04/17/21 Range/Units 06:42 06:42 06:42 WBC (5.0-10.0) 10^3/uL RBC (4.2-5.4) 10^6/uL Hgb (12.0-16.0) g/dL Hct (37.0-47.0) % MCV (80-100) fL MCH (27.0-34.0) pg MCHC (33.0-35.0) g/dL Plt Count (150-450) 10^3/uL Neut % (Auto) (42.2-75.2) % Lymph % (Auto) (20.5-50.1) % [place] % (Auto) (2-8) % Eos % (Auto) (1.0-3.0) % Baso % (Auto) (0.0-1.0) % Add Manual Diff D-Dimer, Quantitative 718 H (0-400) ng/mL Sodium 136 (136-145) mmol/L Potassium 4.5 D (3.5-5.1) mmol/L Chloride 103 (98-107) mmol/L Carbon Dioxide 16 L (21-32) mmol/L Anion Gap 21.5 H (7-13) mEq/L BUN 21 H (7-18) mg/dL Creatinine 1.55 H (0.55-1.02) mg/dL Est Cr Clr Drug Dosing 32.77 mL/min Estimated GFR (MDRD) 35 Glucose 156 H (70-99) mg/dL Calcium 7.7 L (8.5-10.1) mg/dL Total Bilirubin 0.2 (0.2-1.0) mg/dL Direct Bilirubin 0.1 (0.0-0.2) mg/dL Indirect Bilirubin 0.1 AST 331 H (15-37) U/L ALT 299 H (14-59) U/L Alkaline Phosphatase 57 (46-116) U/L Total Protein 6.9 (6.4-8.2) g/dL Albumin 2.7 L (3.4-5.0) g/dL Globulin 4.2 Albumin/Globulin Ratio 0.64 /04/27 Range/Units 06:42 WBC 13.5 H (5.0-10.0) 10^3/uL RBC 3.75 L (4.2-5.4) 10^6/uL Hgb 11.0 L (12.0-16.0) g/dL Hct 33.8 L (37.0-47.0) % MCV 90.1 (80-100) fL MCH 29.3 (27.0-34.0) pg MCHC 32.5 L (33.0-35.0) g/dL Plt Count 330 (150-450) 10^3/uL Neut % (Auto) 89.5 H (42.2-75.2) % Lymph % (Auto) 5.3 L (20.5-50.1) % [place] % (Auto) 5.0 (2-8) % Eos % (Auto) 0.1 L (1.0-3.0) % Baso % (Auto) 0.1 (0.0-1.0) % Add Manual Diff D-Dimer, Quantitative (0-400) ng/mL Sodium (136-145) mmol/L Potassium (3.5-5.1) mmol/L Chloride (98-107) mmol/L Carbon Dioxide (21-32) mmol/L Anion Gap (7-13) mEq/L BUN (7-18) mg/dL Creatinine (0.55-1.02) mg/dL Est Cr Clr Drug Dosing mL/min Estimated GFR (MDRD) Glucose (70-99) mg/dL Calcium (8.5-10.1) mg/dL Total Bilirubin (0.2-1.0) mg/dL Direct Bilirubin (0.0-0.2) mg/dL Indirect Bilirubin AST (15-37) U/L ALT (14-59) U/L Alkaline Phosphatase (46-116) U/L Total Protein (6.4-8.2) g/dL Albumin (3.4-5.0) g/dL Globulin Albumin/Globulin Ratio Result Diagrams: 04/17/21 06:42 04/17/21 06:42 Conner Results Last 24 hrs: Microbiology 04/16/21 11:11 Aerobic Blood Culture - Preliminary Blood - Arm, Right NO GROWTH AFTER 1 DAY Anaerobic Blood Culture - Preliminary NO GROWTH AFTER 1 DAY 04/16/21 11:06 Aerobic Blood Culture - Preliminary Blood - Arm, Left NO GROWTH AFTER 1 DAY Anaerobic Blood Culture - Preliminary NO GROWTH AFTER 1 DAY Sepsis Event Note - Evaluation Sepsis Screening Result: Possible Sepsis Risk - Focused Exam Vital Signs: Vital Signs Temp Pulse Resp BP Pulse Ox 04/17/21 12:22 98.1 F 84 16 99/65 91 L 04/17/21 08:00 98.7 F 85 18 112/78 91 L 04/17/21 04:00 99.2 F 74 22 H 110/65 94 L - Problem List & Annotations (1) Hypokalemia SNOMED Code(s): 48577497 Code(s): E87.6 - HYPOKALEMIA Status: Acute Current Visit: Yes (2) ROGERIO (acute kidney injury) SNOMED Code(s): 74334772, 09678817 Code(s): N17.9 - ACUTE KIDNEY FAILURE, UNSPECIFIED Status: Acute Current Visit: No (3) COVID SNOMED Code(s): 535672703 Code(s): U07.1 - COVID-19 Status: Acute Current Visit: No (4) Nausea & vomiting SNOMED Code(s): 10012191 Code(s): R11.2 - NAUSEA WITH VOMITING, UNSPECIFIED Status: Acute Current Visit: No Qualifiers: Vomiting type: unspecified Vomiting Intractability: non-intractable Qualified Code(s): R11.2 - Nausea with vomiting, unspecified (5) Nausea, vomiting, and diarrhea SNOMED Code(s): 0079879 Code(s): R11.2 - NAUSEA WITH VOMITING, UNSPECIFIED; R19.7 - DIARRHEA, UNSPECIFIED Status: Acute Current Visit: No (6) Pneumonia due to COVID-19 virus SNOMED Code(s): 607882495056823127 Code(s): U07.1 - COVID-19; J12.82 - PNEUMONIA DUE TO CORONAVIRUS DISEASE 2019 Status: Acute Current Visit: No (7) Viral syndrome SNOMED Code(s): 96559901 Code(s): B34.9 - VIRAL INFECTION, UNSPECIFIED Status: Acute Current Visit: No - Problem List Review Problem List Initiated/Reviewed/Updated: Yes - My Orders Last 24 Hours: My Active Orders 04/16/21 13:53 Patient Status [ADT] Routine 04/16/21 15:41 Isolation [COMM] Stat 04/16/21 15:43 Antiembolic Devices [RC] 08,20 Oxygen Therapy [RC] PRN Up With Assistance [RC] ASDIRECTED VTE/DVT Education [RC] 08,20 Vital Signs [RC] 00,04,08,12,16,20 Acetaminophen [TylenoL] 650 mg PO Q4H PRN Temazepam [Restoril] 15 mg PO BEDTIME PRN oxyCODONE 5 mg PO Q4H PRN Antiembolic Hose [OM.PC] Per Unit Routine Resuscitation Status Routine 04/16/21 Dinner Full Liquid Diet [DIET] 04/16/21 18:00 Ondansetron [Zofran] 4 mg IVPUSH Q6HR 04/16/21 21:00 Aspirin [Halfprin] 81 mg PO BEDTIME Enoxaparin [Lovenox] 30 mg SUBCUT BID Gabapentin [Neurontin] 400 mg PO BEDTIME Mometasone/Formoterol [Dulera 200-5 MCG] 2 puff IH BID mycophenolate mofetiL [Cellcept] 1,000 mg PO BID 04/16/21 21:44 guaiFENesin [Robitussin] 100 mg PO Q6H PRN 04/17/21 06:00 Omeprazole 40 mg PO ACBRK 04/17/21 06:24 CLOSTRIDIUM DIFFICILE TOX RFLX [MREF] Routine 04/17/21 06:42 PROCALCITONIN [REF] DAILY 04/17/21 08:00 Multivitamins/Minerals [Vitamins and Minerals] 1 tab PO WITHBREAKFAST dexAMETHasone 6 mg PO DAILY@0800 04/17/21 09:00 Cholecalciferol (Vitamin D3) [Vitamin D3] 25 mcg PO DAILY Montelukast [Singulair] 10 mg PO DAILY 04/18/21 05:00 PROCALCITONIN [REF] DAILY 04/18/21 05:11 BASIC METABOLIC PANEL,BMP [CHEM] AM CBC WITH AUTO DIFF [HEME] AM DD [D-DIMER QUANTITATIVE] [COAG] AM HEPATIC FUNCTION PANEL,[facility] [CHEM] AM 04/19/21 05:00 PROCALCITONIN [REF] DAILY 04/19/21 05:11 BASIC METABOLIC PANEL,BMP [CHEM] AM CBC WITH AUTO DIFF [HEME] AM DD [D-DIMER QUANTITATIVE] [COAG] AM HEPATIC FUNCTION PANEL,[facility] [CHEM] AM 04/20/21 05:00 PROCALCITONIN [REF] DAILY 04/20/21 05:11 BASIC METABOLIC PANEL,BMP [CHEM] AM CBC WITH AUTO DIFF [HEME] AM DD [D-DIMER QUANTITATIVE] [COAG] AM HEPATIC FUNCTION PANEL,[facility] [CHEM] AM 04/21/21 05:00 PROCALCITONIN [REF] DAILY 04/21/21 05:11 BASIC METABOLIC PANEL,BMP [CHEM] AM CBC WITH AUTO DIFF [HEME] AM DD [D-DIMER QUANTITATIVE] [COAG] AM HEPATIC FUNCTION PANEL,[facility] [CHEM] AM 04/22/21 05:00 PROCALCITONIN [REF] DAILY 04/22/21 05:11 BASIC METABOLIC PANEL,BMP [CHEM] AM CBC WITH AUTO DIFF [HEME] AM DD [D-DIMER QUANTITATIVE] [COAG] AM HEPATIC FUNCTION PANEL,[facility] [CHEM] AM 04/23/21 05:00 PROCALCITONIN [REF] DAILY 04/23/21 05:11 BASIC METABOLIC PANEL,BMP [CHEM] AM CBC WITH AUTO DIFF [HEME] AM DD [D-DIMER QUANTITATIVE] [COAG] AM HEPATIC FUNCTION PANEL,[facility] [CHEM] AM 04/24/21 05:00 PROCALCITONIN [REF] DAILY 04/24/21 05:11 BASIC METABOLIC PANEL,BMP [CHEM] AM CBC WITH AUTO DIFF [HEME] AM DD [D-DIMER QUANTITATIVE] [COAG] AM HEPATIC FUNCTION PANEL,[facility] [CHEM] AM 04/25/21 05:00 PROCALCITONIN [REF] DAILY 04/25/21 05:11 BASIC METABOLIC PANEL,BMP [CHEM] AM CBC WITH AUTO DIFF [HEME] AM DD [D-DIMER QUANTITATIVE] [COAG] AM HEPATIC FUNCTION PANEL,[facility] [CHEM] AM 04/26/21 05:00 PROCALCITONIN [REF] DAILY 04/26/21 05:11 BASIC METABOLIC PANEL,BMP [CHEM] AM CBC WITH AUTO DIFF [HEME] AM DD [D-DIMER QUANTITATIVE] [COAG] AM HEPATIC FUNCTION PANEL,[facility] [CHEM] AM 04/27/21 05:00 PROCALCITONIN [REF] DAILY 04/27/21 05:11 BASIC METABOLIC PANEL,BMP [CHEM] AM CBC WITH AUTO DIFF [HEME] AM DD [D-DIMER QUANTITATIVE] [COAG] AM HEPATIC FUNCTION PANEL,[facility] [CHEM] AM 04/28/21 05:00 PROCALCITONIN [REF] DAILY 04/28/21 05:11 BASIC METABOLIC PANEL,BMP [CHEM] AM CBC WITH AUTO DIFF [HEME] AM DD [D-DIMER QUANTITATIVE] [COAG] AM HEPATIC FUNCTION PANEL,[facility] [CHEM] AM 04/29/21 05:00 PROCALCITONIN [REF] DAILY 04/29/21 05:11 BASIC METABOLIC PANEL,BMP [CHEM] AM CBC WITH AUTO DIFF [HEME] AM DD [D-DIMER QUANTITATIVE] [COAG] AM HEPATIC FUNCTION PANEL,[facility] [CHEM] AM 04/30/21 05:00 PROCALCITONIN [REF] DAILY 04/30/21 05:11 BASIC METABOLIC PANEL,BMP [CHEM] AM CBC WITH AUTO DIFF [HEME] AM DD [D-DIMER QUANTITATIVE] [COAG] AM HEPATIC FUNCTION PANEL,[facility] [CHEM] AM 05/01/21 05:11 BASIC METABOLIC PANEL,BMP [CHEM] AM CBC WITH AUTO DIFF [HEME] AM - Plan Plan:: Received covid booster (3rd) apr 02 Tested negative for covid on 04/07 Developed n/diarrhea, fever, body aches, sob, ear syncope - started 04/08 came to er on 04/12/21 tested positive for covid discharged home symptoms did not improve presented with profound weakness, 2 syncopal episode on 04/16 In er noted to have hypotension, hypoxemia, severe hypokalemia Acute covid 19 pneumonia in immunocompromised patient As seen on ct 04/16/21 Vaccination status: vaccinated Symptom onset: about 04/08/21 Covid test positive: 04/12/21 Treat with dexamethasone increased ASt/ALT noted- firl late in the course, questionable benefit- stop remdesivir Treat with mvi /vit d Follow daily cbc, bmp, trop, procal, ddimer acute hypoxemic respiratory failure requiring NC oxygen at 2 l/min Evaluations for concurrent bacterial pneumonia: Procalcitonin: pending Hold Abx for now Evaluations for thrombotic complications Ddimer: mildly increased Prophylaxis: continue bid lovenox 30 mg Nausea, diarrhea due to covid infection Treat symptomatically Check c diff Severe hypokalemia secondary to low oral intake, nausea, diarrhea improved with IV KCL supplement Recheck in AM Rogerio With h/o CKD III improved with IVF stop IVF h/o diet controlled DM follow fasting BS Hyponatremia Mld 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 Mejia (PMD)
[2021-04-17] MEDS ORDERED: REMDESIVIR 100 MG in Sodium Chloride 0.9% 100 ML IV SCH (16:00)
[2021-04-17] MEDS: Gabapentin 400 MG Cap PO SCH (21:16)
[2021-04-17] MEDS: Aspirin 81 MG Tab.EC PO SCH (21:16)
[2021-04-17] MEDS: oxyCODONE 5 MG Tab PO PRN (21:17)
[2021-04-18] MEDS: Ondansetron 4 MG/2 ML SDV IVPUSH SCH ×2 (01:32→07:52)
[2021-04-18] MEDS: Omeprazole 20 MG Cap.CR PO SCH (05:40)
[2021-04-18] MEDS: oxyCODONE 5 MG Tab PO PRN (05:41)
[2021-04-18 07:09] LABS: ANION GAP 22.7 mEq/L (7-13)
[2021-04-18] MEDS: Mycophenolate Mofetil 250 MG Cap PO SCH ×2 (07:52→09:47)
[2021-04-18] MEDS: Multivitamins, Therapeutic with Minerals Tab PO SCH (07:53)
[2021-04-18] MEDS: Montelukast 10 MG Tab PO SCH ×2 (07:53→09:47)
[2021-04-18] MEDS: Cholecalciferol (Vitamin D3) 25 MCG Tab PO SCH ×2 (07:53→09:49)
[2021-04-18] MEDS: Dexamethasone 6 MG TABLET PO SCH (07:53)
[2021-04-18] MEDS: Acetaminophen 325 MG Tab PO PRN (07:57)
[2021-04-18] MEDS: Formoterol/Mometasone 200-5 MCG 8.8 GM Inhaler IH SCH ×2 (07:58→09:47)
[2021-04-18] MEDS: Enoxaparin 30 MG/0.3 ML Syringe SUBCUT SCH (09:47)
[2021-04-18] MEDS ORDERED: Levofloxacin 500 MG Tab PO SCH (11:00)
--- NOTE | 2021-04-18 11:34 | PCM.DCSUM1 ---
Discharge Summary - Hospital Course Free Text/Narrative:: immunocompromised with h/o leukocytoclastic vasculitis, chronic prednisone use Received covid booster (3rd) apr 02 Tested negative for covid on 04/07 Developed n/diarrhea, fever, body aches, sob, ear syncope - started 04/08 came to er on 04/12/21 tested positive for covid discharged home symptoms did not improve presented with profound weakness, 2 syncopal episode on 04/16 In er noted to have hypotension, hypoxemia, severe hypokalemia Acute covid 19 pneumonia in immunocompromised patient As seen on ct 04/16/21 Vaccination status: vaccinated Symptom onset: about 04/08/21 Covid test positive: 04/12/21 Treat with dexamethasone - finish one more week started but stopped remdesivir given increase in ast, alt - monitor periodically Treat with mvi /vit d acute hypoxemic respiratory failure requiring NC oxygen at 2-3 l/min will arrange home oxygen Evaluations for concurrent bacterial pneumonia: Procalcitonin: elevated leukocytosis noted started levofloxacin Evaluations for thrombotic complications Ddimer: mildly increased Prophylaxis: ASA 325 mg Nausea, diarrhea due to covid infection Treated symptomatically improved Severe hypokalemia secondary to low oral intake, nausea, diarrhea improved with IV KCL supplement Jovany With h/o CKD III improved with IVF Hyponatremia Mld follow periodically h/o leukocytoclastic vasculitis/cellulitis on chronic prednisone 4 mg qod adrenal insufficiency might also cause similar symptoms will treat with dexa - resume prednisone after 1 week dexamethasone cont mycophenolate Diagnosis: Stroke: No - Discharge Data Discharge Date: 04/18/21 Discharge Disposition: Home, Self-Care 01 Condition: Good - Referral to Home Health Primary Care Physician: PCP None - Discharge Diagnosis/Problem(s) (1) Hypokalemia SNOMED Code(s): 53748347 ICD Code: E87.6 - HYPOKALEMIA Status: Acute Current Visit: Yes (2) JOVANY (acute kidney injury) SNOMED Code(s): 51678772, 71161202 ICD Code: N17.9 - ACUTE KIDNEY FAILURE, UNSPECIFIED Status: Acute Current Visit: No (3) COVID SNOMED Code(s): 032643908 ICD Code: U07.1 - COVID-19 Status: Acute Current Visit: No (4) Nausea & vomiting SNOMED Code(s): 42807810 ICD Code: R11.2 - NAUSEA WITH VOMITING, UNSPECIFIED Status: Acute Current Visit: No Qualifiers: Vomiting type: unspecified Vomiting Intractability: non-intractable Qualified Code(s): R11.2 - Nausea with vomiting, unspecified (5) Nausea, vomiting, and diarrhea SNOMED Code(s): 9720436 ICD Code: R11.2 - NAUSEA WITH VOMITING, UNSPECIFIED; R19.7 - DIARRHEA, UNSPECIFIED Status: Acute Current Visit: No (6) Pneumonia due to COVID-19 virus SNOMED Code(s): 596233389640442415 ICD Code: U07.1 - COVID-19; J12.82 - PNEUMONIA DUE TO CORONAVIRUS DISEASE 2019 Status: Acute Current Visit: No (7) Viral syndrome SNOMED Code(s): 56063335 ICD Code: B34.9 - VIRAL INFECTION, UNSPECIFIED Status: Acute Current Visit: No - Patient Instructions Diet: Heart Healthy Diet Activity: As Tolerated - Discharge Plan *PRESCRIPTION DRUG MONITORING PROGRAM REVIEWED*: Not Applicable *COPY OF PRESCRIPTION DRUG MONITORING REPORT IN PATIENT SAVANNA: Not Applicable Prescriptions/Med Rec: dexAMETHasone [Dexamethasone] 6 mg PO DAILY #7 tab Aspirin [Halfprin] 325 mg PO DAILY #14 tab.ec levoFLOXacin [Levaquin] 750 mg PO Q48H #5 tablet oxyCODONE 5 mg PO Q4H PRN #12 tablet PRN Reason: Pain (Moderate 4-6) Cholecalciferol (Vitamin D3) [Vitamin D3] 25 mcg PO DAILY #14 tablet Home Medications: Home Meds Fluticasone Propionate [Flonase] 1 spray NASBOTH DAILY PRN 12/03/17 [History] Omeprazole [Prilosec] 40 mg PO DAILY 12/03/17 [History] Gabapentin [Neurontin] 400 mg PO BEDTIME 04/12/21 [History] Fluticasone Propion/Salmeterol [Advair 250-50 Diskus] 1 puff INH BID 04/16/21 [History] Montelukast [Singulair] 10 mg PO DAILY 04/16/21 [History] Rosuvastatin [Crestor] 20 mg PO BEDTIME 04/16/21 [History] mycophenolate mofetiL [Mycophenolate Mofetil] 1,000 mg PO BID 04/16/21 [History] Aspirin [Halfprin] 325 mg PO DAILY #14 tab.ec 04/18/21 [Rx] Cholecalciferol (Vitamin D3) [Vitamin D3] 25 mcg PO DAILY #14 tablet 04/18/21 [Rx] Multivitamins/Minerals [Vitamins and Minerals] 1 tab PO WITHBREAKFAST tablet 04/18/21 [Rx] dexAMETHasone [Dexamethasone] 6 mg PO DAILY #7 tab 04/18/21 [Rx] levoFLOXacin [Levaquin] 750 mg PO Q48H #5 tablet 04/18/21 [Rx] oxyCODONE 5 mg PO Q4H PRN #12 tablet 04/18/21 [Rx] Oxygen Therapy Mode: Nasal Cannula Oxygen Flow Rate (L/min): 3 Forms: ED Department Discharge Referrals: Anca Mejia MD [Physician] - (Post hospital follow up appointment April 21 @ 10:00am.) - Discharge Summary/Plan Comment DC Time >30 min.: Yes Total # of Minutes for Discharge Time: 35 min arrange home oxygen - General Info Date of Service: 04/18/21 Subjective Update: continues to have moderate cough, no associated sputum has been on 2-3 l nc oxygen supplement diarrhea is better no more dizziness, not lightheaded - Patient Data Vitals - Most Recent: Last Vital Signs Temp 100.1 F 04/18/21 08:00 Pulse 96 04/18/21 08:00 Resp 22 H 04/18/21 08:00 BP 119/75 04/18/21 08:00 Pulse Ox 87 L 04/18/21 08:00 Orthostatic Blood Pressure [ 76/58 Standing] Orthostatic Blood Pressure [ 83/57 Sitting] Orthostatic Blood Pressure [ 88/56 Supine] Weight - Most Recent: 144 lb 4.8 oz I&O - Last 24 hours: Intake & Output 04/17/21 04/18/21 04/18/21 22:59 06:59 14:59 Intake Total 700 400 240 Balance 700 400 240 Lab Results - Last 24 hrs: Laboratory Results - last 24 hr 04/17/21 04/18/21 04/18/21 Range/Units 06:42 06:05 06:05 WBC 19.9 H (5.0-10.0) 10^3/uL RBC 3.83 L (4.2-5.4) 10^6/uL Hgb 11.1 L (12.0-16.0) g/dL Hct 34.9 L (37.0-47.0) % MCV 91.1 (80-100) fL MCH 29.0 (27.0-34.0) pg MCHC 31.8 L (33.0-35.0) g/dL Plt Count 392 (150-450) 10^3/uL Neut % (Auto) 91.2 H (42.2-75.2) % Lymph % (Auto) 4.4 L (20.5-50.1) % [place] % (Auto) 4.3 (2-8) % Eos % (Auto) 0.0 L (1.0-3.0) % Baso % (Auto) 0.1 (0.0-1.0) % D-Dimer, Quantitative 676 H (0-400) ng/mL Sodium (136-145) mmol/L Potassium (3.5-5.1) mmol/L Chloride (98-107) mmol/L Carbon Dioxide (21-32) mmol/L Anion Gap (7-13) mEq/L BUN (7-18) mg/dL Creatinine (0.55-1.02) mg/dL Est Cr Clr Drug Dosing mL/min Estimated GFR (MDRD) Glucose (70-99) mg/dL Calcium (8.5-10.1) mg/dL Total Bilirubin (0.2-1.0) mg/dL Direct Bilirubin (0.0-0.2) mg/dL Indirect Bilirubin AST (15-37) U/L ALT (14-59) U/L Alkaline Phosphatase (46-116) U/L Total Protein (6.4-8.2) g/dL Albumin (3.4-5.0) g/dL Globulin Albumin/Globulin Ratio Procalcitonin >100.00 H ng/mL 04/18/21 Range/Units 06:05 WBC (5.0-10.0) 10^3/uL RBC (4.2-5.4) 10^6/uL Hgb (12.0-16.0) g/dL Hct (37.0-47.0) % MCV (80-100) fL MCH (27.0-34.0) pg MCHC (33.0-35.0) g/dL Plt Count (150-450) 10^3/uL Neut % (Auto) (42.2-75.2) % Lymph % (Auto) (20.5-50.1) % [place] % (Auto) (2-8) % Eos % (Auto) (1.0-3.0) % Baso % (Auto) (0.0-1.0) % D-Dimer, Quantitative (0-400) ng/mL Sodium 136 (136-145) mmol/L Potassium 4.7 (3.5-5.1) mmol/L Chloride 101 (98-107) mmol/L Carbon Dioxide 17 L (21-32) mmol/L Anion Gap 22.7 H (7-13) mEq/L BUN 22 H (7-18) mg/dL Creatinine 1.55 H (0.55-1.02) mg/dL Est Cr Clr Drug Dosing 32.77 mL/min Estimated GFR (MDRD) 35 Glucose 158 H (70-99) mg/dL Calcium 8.4 L (8.5-10.1) mg/dL Total Bilirubin 0.3 (0.2-1.0) mg/dL Direct Bilirubin 0.1 (0.0-0.2) mg/dL Indirect Bilirubin 0.2 AST 140 H (15-37) U/L ALT 267 H (14-59) U/L Alkaline Phosphatase 56 (46-116) U/L Total Protein 6.8 (6.4-8.2) g/dL Albumin 2.7 L (3.4-5.0) g/dL Globulin 4.1 Albumin/Globulin Ratio 0.66 Procalcitonin ng/mL RYAN Results - Last 24 hrs: Microbiology 04/16/21 11:11 Aerobic Blood Culture - Preliminary Blood - Arm, Right NO GROWTH AFTER 2 DAYS Anaerobic Blood Culture - Preliminary NO GROWTH AFTER 2 DAYS 04/16/21 11:06 Aerobic Blood Culture - Preliminary Blood - Arm, Left NO GROWTH AFTER 2 DAYS Anaerobic Blood Culture - Preliminary NO GROWTH AFTER 2 DAYS 04/17/21 06:24 Clostridioides difficile (PCR) - Final Stool / Feces Med Orders - Current: Current Medications Acetaminophen (Acetaminophen 325 Mg Tab) 650 mg PO Q4H PRN PRN Reason: Pain (Mild 1-3)/fever Last Admin: 04/18/21 07:57 Dose: 650 mg Documented by: Aspirin (Aspirin 81 Mg Tab.Ec) 81 mg PO BEDTIME [facility] Last Admin: 04/17/21 21:16 Dose: 81 mg Documented by: Cholecalciferol (Cholecalciferol (Vitamin D3) 25 Mcg Tab) 25 mcg PO DAILY [facility] Last Admin: 04/18/21 09:49 Dose: Not Given Documented by: Dexamethasone (Dexamethasone 6 Mg Tablet) 6 mg PO DAILY@0800 [facility] Last Admin: 04/18/21 07:53 Dose: 6 mg Documented by: Enoxaparin Sodium (Enoxaparin 30 Mg/0.3 Ml Syringe) 30 mg SUBCUT BID [facility] Last Admin: 04/18/21 09:47 Dose: Not Given Documented by: Gabapentin (Gabapentin 400 Mg Cap) 400 mg PO BEDTIME [facility] Last Admin: 04/17/21 21:16 Dose: 400 mg Documented by: Guaifenesin (Guaifenesin 100 Mg/5 Ml Soln 5 Ml Ud Cup) 100 mg PO Q6H PRN PRN Reason: Cough Last Admin: 04/17/21 19:46 Dose: 100 mg Documented by: Levofloxacin (Levofloxacin 500 Mg Tab) 750 mg PO Q48H [facility] Mometasone Furoate/Formoterol Fumar (Formoterol/Mometasone 200-5 Mcg 8.8 Gm Inhaler) 2 puff IH BID [facility] Last Admin: 04/18/21 09:47 Dose: Not Given Documented by: Montelukast Sodium (Montelukast 10 Mg Tab) 10 mg PO DAILY [facility] Last Admin: 04/18/21 09:47 Dose: Not Given Documented by: Multivitamins/Minerals (Multivitamins, Therapeutic With Minerals Tab) 1 tab PO WITHBREAKFAST [facility] Last Admin: 04/18/21 07:53 Dose: 1 tab Documented by: Mycophenolate Mofetil (Mycophenolate Mofetil 250 Mg Cap) 1,000 mg PO BID [facility] Last Admin: 04/18/21 09:47 Dose: Not Given Documented by: Omeprazole (Omeprazole 20 Mg Cap.Cr) 40 mg PO ACBRK [facility] Last Admin: 04/18/21 05:40 Dose: 40 mg Documented by: Ondansetron HCl (Ondansetron 4 Mg/2 Ml Sdv) 4 mg IVPUSH Q6HR [facility] Last Admin: 04/18/21 07:52 Dose: 4 mg Documented by: Oxycodone HCl (Oxycodone 5 Mg Tab) 5 mg PO Q4H PRN PRN Reason: Pain (moderate 4-6) Last Admin: 04/18/21 05:41 Dose: 5 mg Documented by: Sodium Chloride (Sodium Chloride 0.9% 10 Ml Syringe) 10 ml FLUSH ASDIRECTED PRN PRN Reason: Keep Vein Open Last Admin: 04/16/21 13:03 Dose: 10 ml Documented by: Temazepam (Temazepam 15 Mg Cap) 15 mg PO BEDTIME PRN PRN Reason: Sleep Last Admin: 04/18/21 00:51 Dose: 15 mg Documented by: Discontinued Medications Dexamethasone (Dexamethasone 4 Mg/Ml Sdv) 6 mg IVPUSH ONETIME ONE Stop: 04/16/21 10:54 Last Admin: 04/16/21 12:12 Dose: 6 mg Documented by: Diphenoxylate HCl/Atropine (Atropine/Diphenoxylate 0.025-2.5 Mg Tab) 2 tab PO ONETIME ONE Stop: 04/16/21 10:56 Last Admin: 04/16/21 11:05 Dose: 2 tab Documented by: Sodium Chloride (Normal Saline) 1,000 mls @ 999 mls/hr IV .BOLUS ONE Stop: 04/16/21 11:54 Last Admin: 04/16/21 13:04 Dose: 999 mls/hr Documented by: Potassium Chloride 10 meq/ (Premix) 100 mls @ 100 mls/hr IV ONETIME ONE Stop: 04/16/21 13:29 Last Admin: 04/16/21 13:02 Dose: 100 mls/hr Documented by: Magnesium Sulfate 2 gm/ Premix 50 mls @ 50 mls/hr IV ONETIME ONE Stop: 04/16/21 13:40 Last Admin: 04/16/21 13:02 Dose: 50 mls/hr Documented by: Magnesium Sulfate 2 gm/ Premix 50 mls @ 50 mls/hr IV ONETIME ONE Stop: 04/16/21 13:40 Last Admin: 04/16/21 14:09 Dose: 50 mls/hr Documented by: Potassium Chloride/Sodium Chloride (Normal Saline With 20 Meq Kcl) 1,000 mls @ 50 mls/hr IV ASDIRECTED DEONTE Last Admin: 04/17/21 13:21 Dose: 50 mls/hr Documented by: Remdesivir 100 mg/ Sodium (Chloride) 100 mls @ 100 mls/hr IV Q24H [facility] Stop: 04/20/21 16:59 Potassium Chloride 10 meq/ (Premix) 100 mls @ 100 mls/hr IV Q2H [facility] Stop: 04/16/21 22:59 Last Admin: 04/17/21 00:12 Dose: Not Given Documented by: Remdesivir 200 mg/ Sodium (Chloride) 250 mls @ 250 mls/hr IV ONETIME ONE Stop: 04/16/21 17:29 Last Admin: 04/16/21 18:31 Dose: 250 mls/hr Documented by: Potassium Chloride (Kcl In Water 10 Meq/100 Ml) Confirm Administered Dose 100 mls @ as directed .ROUTE .STK-MED ONE Stop: 04/16/21 17:18 Last Admin: 04/17/21 00:10 Dose: Not Given Documented by: Potassium Chloride 10 meq/ (Premix) 100 mls @ 25 mls/hr IV Q4H [facility] Stop: 04/17/21 10:29 Last Admin: 04/17/21 06:21 Dose: 25 mls/hr Documented by: Lidocaine HCl (Lidocaine 1% 30 Ml Sdv) 1 ml INJECT ONETIME ONE Stop: 04/16/21 12:31 Last Admin: 04/16/21 13:03 Dose: 1 ml Documented by: Ondansetron HCl (Ondansetron 4 Mg/2 Ml Sdv) 4 mg IV ONETIME ONE Stop: 04/16/21 10:54 Last Admin: 04/16/21 12:12 Dose: 4 mg Documented by: Promethazine HCl/Codeine (Codeine/Promethazine 10-6.25 Mg/5 Ml Syrup 5 Ml Ud Cup) 10 ml PO ONETIME ONE Stop: 04/16/21 10:55 Last Admin: 04/16/21 12:41 Dose: 10 ml Documented by: - Exam General: Reports: Alert, Oriented Neck: Reports: Supple Lungs: Reports: Normal Respiratory Effort, Rhonchi Cardiovascular: Reports: Regular Rate, Regular Rhythm GI/Abdominal Exam: Normal Bowel Sounds, Soft, Non-Tender Extremities: No Pedal Edema Skin: Reports: Warm, Dry Psy/Mental Status: Reports: Alert, Normal Affect, Normal Mood
[2021-04-18 13:00] VITALS: BP 106/50; PULSE 62
== END 2021-04-18 14:30 | disposition home or self-care (01) | DRG 137 ==
LOC: DL.ED 09:35 → DL.MS 13:53 → UNDOADMIN 13:59 → DL.MS 13:59
PROVIDERS: ADMIT Internal Medicine; ATTEND Internal Medicine
PROC: 3E0DX3Z Introduction of Anti-inflammatory into Mouth and Pharynx, External Approach (ICD-10-PCS; principal; 2021-04-16)
PROC: XW033E5 Introduction of Remdesivir Anti-infective into Peripheral Vein, Percutaneous Approach, New Technology Group 5 (ICD-10-PCS; 2021-04-16)
PROC: 8E0ZXY6 Isolation (ICD-10-PCS; 2021-04-16)
DX: U07.1 COVID-19 (principal); J96.01 Acute respiratory failure with hypoxia; N17.9 Acute kidney failure, unspecified; D84.9 Immunodeficiency, unspecified; I95.9 Hypotension, unspecified; E87.6 Hypokalemia; J15.9 Unspecified bacterial pneumonia; R79.1 Abnormal coagulation profile; N18.9 Chronic kidney disease, unspecified; E87.1 Hypo-osmolality and hyponatremia; E27.40 Unspecified adrenocortical insufficiency; J12.82 Pneumonia due to coronavirus disease 2019; B34.9 Viral infection, unspecified; K21.9 Gastro-esophageal reflux disease without esophagitis; E78.00 Pure hypercholesterolemia, unspecified; I12.9 Hypertensive chronic kidney disease with stage 1 through stage 4 chronic kidney disease, or unspecified chronic kidney disease; D50.9 Iron deficiency anemia, unspecified; Z79.52 Long term (current) use of systemic steroids; Z79.82 Long term (current) use of aspirin; Z79.899 Other long term (current) drug therapy; Z88.0 Allergy status to penicillin; Z88.1 Allergy status to other antibiotic agents; Z98.49 Cataract extraction status, unspecified eye; Z90.89 Acquired absence of other organs; Z86.19 Personal history of other infectious and parasitic diseases; Z94.7 Corneal transplant status
CPT/HCPCS: 36415; 71250; 74176; 80048; 80053; 80076; 82150; 82728; 83605; 83615; 83690; 83735; 84145; 84484; 85025; 85379; 85610; 85730; 86140; 87040; 87493; 93005; 96365; 96368; 96375; 99223; 99233; 99239; 99285-25; A9270-GY; J1100; J1650; J2405; J3475; J3480; J7030; J7050; J8540

== ENCOUNTER 2021-04-20 15:20 | Inpatient (IN) | payer BC ==
[~2021-04-20 15:20] MED LIST changes: -Midazolam 1 MG/ML 2 ML SDV ONE; +Sodium Chloride 0.9% 10 ML Syringe FLUSH PRN; -fentaNYL 100 MCG/2 ML SDV ONE
[2021-04-20] MEDS ORDERED: Albuterol/Ipratropium 3.0-0.5 MG/3 ML Neb Soln NEB ONE (15:23)
[2021-04-20] MEDS ORDERED: Sodium Chloride 0.9% 1,000 ML IV ONE (15:33)
--- NOTE | 2021-04-20 15:38 | EDM.PDOC ---
ED HPI GENERAL MEDICAL PROBLEM - General Chief Complaint: Respiratory Problem Stated Complaint: IN BY AMBULANCE Time Seen by Provider: 04/20/21 15:25 Source of Information: Reports: Patient History Limitations: Reports: No Limitations - History of Present Illness INITIAL COMMENTS - FREE TEXT/NARRATIVE: 50 y/o F presents with respiratory distress c/o increasing sob since being d ischarged here after treatment of COVID. Pt was diagnosed on the with COVID adn sent home with mild symptoms. She returned to the ER and was admitted apr 16 for respiratory distress. Pt was discharged two nights ago on o2 2L nsl cannula but has needed more oxygen and feels like she cannot catch her breath. She denies fever, chills, cp, abd pn, neck pn, back pn. Pt is fully vaccinated with Moderna and had her booster shot earlier this month or late March. - Related Data Allergies Allergy/AdvReac Type Severity Reaction Status Date / Time erythromycin lactobionate Allergy Nausea Verified 04/12/21 10:51 [From Erythrocin] Penicillins Allergy Rash Verified 04/12/21 10:51 Home Meds: Home Meds Fluticasone Propionate [Flonase] 1 spray NASBOTH DAILY PRN 12/03/17 [History] Omeprazole [Prilosec] 40 mg PO DAILY 12/03/17 [History] Gabapentin [Neurontin] 400 mg PO BEDTIME 04/12/21 [History] Fluticasone Propion/Salmeterol [Advair 250-50 Diskus] 1 puff INH BID 04/16/21 [History] Montelukast [Singulair] 10 mg PO DAILY 04/16/21 [History] Rosuvastatin [Crestor] 20 mg PO BEDTIME 04/16/21 [History] mycophenolate mofetiL [Mycophenolate Mofetil] 1,000 mg PO BID 04/16/21 [History] Aspirin [Halfprin] 325 mg PO DAILY #14 tab.ec 04/18/21 [Rx] Cholecalciferol (Vitamin D3) [Vitamin D3] 25 mcg PO DAILY #14 tablet 04/18/21 [Rx] Multivitamins/Minerals [Vitamins and Minerals] 1 tab PO WITHBREAKFAST tablet 04/18/21 [Rx] dexAMETHasone [Dexamethasone] 6 mg PO DAILY #7 tab 04/18/21 [Rx] levoFLOXacin [Levaquin] 750 mg PO Q48H #5 tablet 04/18/21 [Rx] oxyCODONE 5 mg PO Q4H PRN #12 tablet 04/18/21 [Rx] Past Medical History HEENT History: Reports: Sinusitis Other HEENT History: 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'T BE [employer] WORK[employer] History: Reports: Endometriosis, Spontaneous Other [employer] WORK[employer] History: HAS IUD Musculoskeletal History: Reports: SLE Other Musculoskeletal History: LUPUS IN REMISSION Neurological History: Reports: None Psychiatric History: Reports: None Endocrine/Metabolic History: Reports: None Hematologic History: Reports: Anemia, Iron Deficiency Immunologic History: Reports: SLE Other Immunologic History: in remission for 11 years (had for 8 years) Oncologic (Cancer) History: Reports: None Dermatologic History: Reports: Cellulitis Other Dermatologic History: esinophyllic cellulitis - Infectious Disease History Infectious Disease History: Reports: Chicken Pox, Novel Coronavirus, Shingles - Past Surgical History Head Surgeries/Procedures: Reports: None HEENT Surgical History: Reports: Adenoidectomy, Cataract Surgery, Eye Surgery, Tonsillectomy, Other (See Below) Other HEENT Surgeries/Procedures: corneal transplant Cardiovascular Surgical History: Reports: None Respiratory Surgical History: Reports: None GI Surgical History: Reports: Colonoscopy, Hernia, Inguinal Female Surgical History: Reports: Other (See Below) Other Female Surgeries/Procedures: kidney biopsy Social & Family History - Family History Family Medical History: No Pertinent Family History - Caffeine Use Caffeine Use: Reports: None Other Caffeine Use: 16. oz - Living Situation & Occupation Living situation: Reports: with Family Occupation: Employed ED ROS GENERAL - Review of Systems Review Of Systems: Comprehensive ROS is negative, except as noted in HPI. ED EXAM, GENERAL - Physical Exam Exam: See Below Exam Limited By: No Limitations General Appearance: Alert, Moderate Distress Eye Exam: Bilateral Eye: PERRL Ears: Normal External Exam, Normal Canal, Hearing Grossly Normal, Other Nose: Normal Inspection, Normal Mucosa, No Blood Throat/Mouth: Normal Inspection, Normal Lips, Normal Teeth, Normal Gums, Normal Oropharynx, Normal Voice, No Airway Compromise Head: Atraumatic, Normocephalic Neck: Supple, Non-Tender Respiratory/Chest: Respiratory Distress (Dimished uppers crackles R lower base. Diminished L lower base, accessory muscle use) Cardiovascular: Normal Peripheral Pulses, Regular Rate, Rhythm, No JVD GI/Abdominal: Soft, Non-Tender (Female) Exam: Deferred Rectal (Female) Exam: Deferred Back Exam: Normal Inspection, Full Range of Motion Extremities: Normal Inspection, Normal Range of Motion, Non-Tender, Normal Capillary Refill, No Pedal Edema Neurological: Alert, Oriented, CN II-XII Intact, Normal Cognition, Normal Gait, Normal Reflexes, No Motor/Sensory Deficits Psychiatric: Normal Affect, Anxious Skin Exam: Warm, Dry, Intact #1 Interpretation EKG Date: 04/20/21 Time: 15:33 Rhythm: NSR [place]: LAD-Left [place] Deviation P-Wave: Present QRS: Normal ST-T: Normal QT: Normal Course - Vital Signs Last Recorded V/S: Last Vital Signs Temp 97.9 F 04/20/21 15:10 Pulse 88 04/20/21 15:10 Resp 16 04/20/21 15:10 BP 141/65 H 04/20/21 15:10 Pulse Ox 81 L 04/20/21 15:30 - Orders/Labs/Meds Orders: Active Orders 24 hr Category Date Time Status Admission Diagnosis [ADT] Stat ADT 04/20/21 16:13 Ordered Admission Status [Patient Status] [ADT] Routine ADT 04/20/21 16:13 Active Peripheral IV Care [RC] . DIRECTED Care 04/20/21 14:53 Active RT Aerosol Therapy [RC] ASDIRECTED Care 04/20/21 15:24 Active CBC WITH AUTO DIFF [HEME] Stat Lab 04/20/21 12:22 Results CULTURE BLOOD [BC] Stat Lab 04/20/21 12:18 Received CULTURE BLOOD [BC] Stat Lab 04/20/21 12:22 Received MANUAL DIFFERENTIAL QA/NC [HEME] Stat Lab 04/20/21 12:22 Results REFLEX LACTIC ACID YES OR NO [CHEM] Routine Lab 04/20/21 16:03 Received Meropenem [Merrem] 1 gm Med 04/20/21 16:24 Active Sodium Chloride 0.9% [Normal Saline AdvBag] 100 ml IV ONETIME Sodium Chloride 0.9% [Saline Flush] Med 04/20/21 14:52 Active 10 ml FLUSH ASDIRECTED PRN Blood Culture x2 Reflex Set [OM.PC] Stat Oth 04/20/21 14:52 Ordered Peripheral IV Insertion Adult [OM.PC] Routine Oth 04/20/21 14:52 Ordered Medication Orders Meropenem 1 gm/ Sodium (Chloride) 100 mls @ 200 mls/hr IV ONETIME ONE Stop: 04/20/21 16:53 Sodium Chloride (Sodium Chloride 0.9% 10 Ml Syringe) 10 ml FLUSH ASDIRECTED PRN PRN Reason: Keep Vein Open Last Admin: 04/20/21 15:18 Dose: 10 ml Documented by: JEET Labs: Laboratory Tests 04/20/21 04/20/21 04/20/21 Range/Units 12:22 12:22 12:22 WBC 27.1 H* (5.0-10.0) 10^3/uL RBC 4.02 L (4.2-5.4) 10^6/uL Hgb 11.8 L (12.0-16.0) g/dL Hct 35.8 L (37.0-47.0) % MCV 89.1 (80-100) fL MCH 29.4 (27.0-34.0) pg MCHC 33.0 (33.0-35.0) g/dL Plt Count 490 H D (150-450) 10^3/uL Neut % (Auto) 92.4 H (42.2-75.2) % Lymph % (Auto) 2.7 L (20.5-50.1) % [place] % (Auto) 4.8 (2-8) % Eos % (Auto) 0.0 L (1.0-3.0) % Baso % (Auto) 0.1 (0.0-1.0) % Add Manual Diff Yes D-Dimer, Quantitative 1770 H (0-400) ng/mL ABG pH (7.35-7.45) ABG pCO2 (35-45) mmHg ABG pO2 (70-100) mmHg ABG HCO3 (22-26) mmol/L ABG O2 Saturation (95-100) % ABG Base Excess ((-2)-(+3)) mmol/L Danny Test O2 Delivery Device Sodium 134 L (136-145) mmol/L Potassium 4.2 (3.5-5.1) mmol/L Chloride 96 L (98-107) mmol/L Carbon Dioxide 20 L (21-32) mmol/L Anion Gap 22.2 H (7-13) mEq/L BUN 31 H (7-18) mg/dL Creatinine 1.76 H (0.55-1.02) mg/dL Est Cr Clr Drug Dosing TNP Estimated GFR (MDRD) 31 BUN/Creatinine Ratio 17.6 (No establ ref range) Glucose 282 H (70-99) mg/dL Lactic Acid (0.4-2.0) mmol/L Calcium 9.3 (8.5-10.1) mg/dL Magnesium 1.7 L (1.8-2.4) mg/dL Total Bilirubin 0.4 (0.2-1.0) mg/dL AST 40 H (15-37) U/L ALT 130 H (14-59) U/L Alkaline Phosphatase 79 (46-116) U/L C-Reactive Protein 5.6 H (0.0-0.9) mg/dL Total Protein 7.3 (6.4-8.2) g/dL Albumin 2.9 L (3.4-5.0) g/dL Globulin 4.4 Albumin/Globulin Ratio 0.66 04/20/21 04/20/21 Range/Units 12:22 15:19 WBC (5.0-10.0) 10^3/uL RBC (4.2-5.4) 10^6/uL Hgb (12.0-16.0) g/dL Hct (37.0-47.0) % MCV (80-100) fL MCH (27.0-34.0) pg MCHC (33.0-35.0) g/dL Plt Count (150-450) 10^3/uL Neut % (Auto) (42.2-75.2) % Lymph % (Auto) (20.5-50.1) % [place] % (Auto) (2-8) % Eos % (Auto) (1.0-3.0) % Baso % (Auto) (0.0-1.0) % Add Manual Diff D-Dimer, Quantitative (0-400) ng/mL ABG pH 7.49 H (7.35-7.45) ABG pCO2 23 L (35-45) mmHg ABG pO2 74 (70-100) mmHg ABG HCO3 17.0 L (22-26) mmol/L ABG O2 Saturation 95 (95-100) % ABG Base Excess -5 L ((-2)-(+3)) mmol/L Danny Test Positive O2 Delivery Device Non rebr mask Sodium (136-145) mmol/L Potassium (3.5-5.1) mmol/L Chloride (98-107) mmol/L Carbon Dioxide (21-32) mmol/L Anion Gap (7-13) mEq/L BUN (7-18) mg/dL Creatinine (0.55-1.02) mg/dL Est Cr Clr Drug Dosing Estimated GFR (MDRD) BUN/Creatinine Ratio (No establ ref range) Glucose (70-99) mg/dL Lactic Acid 3.0 H* (0.4-2.0) mmol/L Calcium (8.5-10.1) mg/dL Magnesium (1.8-2.4) mg/dL Total Bilirubin (0.2-1.0) mg/dL AST (15-37) U/L ALT (14-59) U/L Alkaline Phosphatase (46-116) U/L C-Reactive Protein (0.0-0.9) mg/dL Total Protein (6.4-8.2) g/dL Albumin (3.4-5.0) g/dL Globulin Albumin/Globulin Ratio Meds: Medications Generic Name Dose Route Start Last Admin Trade Name Freq PRN Reason Stop Dose Admin Meropenem 1 gm/ Sodium 100 mls @ 200 mls/hr 04/20/21 16:24 Chloride IV 04/20/21 16:53 ONETIME ONE Sodium Chloride 10 ml 04/20/21 14:52 04/20/21 15:18 Sodium Chloride 0.9% 10 Ml Syringe FLUSH 10 ml ASDIRECTED PRN Administration Keep Vein Open Discontinued Medications Generic Name Dose Route Start Last Admin Trade Name Freq PRN Reason Stop Dose Admin Albuterol/Ipratropium 6 ml 04/20/21 15:23 Albuterol/Ipratropium 3.0-0.5 Mg/3 Ml Neb Soln NEB 04/20/21 15:24 ONETIME ONE Sodium Chloride 1,000 mls @ 999 mls/hr 04/20/21 15:33 Normal Saline IV 04/20/21 16:33 .BOLUS ONE Piperacillin Sod/Tazobactam 100 mls @ 200 mls/hr 04/20/21 16:20 Sod 3.375 gm/ Sodium Chloride IV 04/20/21 16:49 ONETIME ONE - Re-Assessments/Exams Free Text/Narrative Re-Assessment/Exam: 04/20/21 16:10 I called [facility] and both reports there are [place] available at [place]. I am concerned the pt will require intubation here in the near future. I spoke with Dr. Charlton who accepted the pt for inpatient treatment. Departure - Departure Time of Disposition: 16:12 (Dr. Charlton) Disposition: Admitted As Inpatient 66 Condition: Serious Clinical Impression: 2019 novel coronavirus-infected pneumonia (NCIP), Hypoxia, Lactic acidosis - Discharge Information *PRESCRIPTION DRUG MONITORING PROGRAM REVIEWED*: Not Applicable *COPY OF PRESCRIPTION DRUG MONITORING REPORT IN PATIENT SAVANNA: Not Applicable Forms: ED Department Discharge Sepsis Event Note (ED) - Focused Exam Vital Signs: Vital Signs Temp Pulse Resp BP Pulse Ox 04/20/21 15:30 81 L 04/20/21 15:10 97.9 F 88 16 141/65 H 74 L - My Orders Last 24 Hours: My Active Orders 04/20/21 12:18 CULTURE BLOOD [BC] Stat 04/20/21 12:22 CBC WITH AUTO DIFF [HEME] Stat CULTURE BLOOD [BC] Stat MANUAL DIFFERENTIAL QA/NC [HEME] Stat 04/20/21 14:52 Sodium Chloride 0.9% [Saline Flush] 10 ml FLUSH ASDIRECTED PRN Blood Culture x2 Reflex Set [OM.PC] Stat Peripheral IV Insertion Adult [OM.PC] Routine 04/20/21 14:53 Peripheral IV Care [RC] . DIRECTED 04/20/21 15:24 RT Aerosol Therapy [RC] ASDIRECTED 04/20/21 16:03 REFLEX LACTIC ACID YES OR NO [CHEM] Routine 04/20/21 16:13 Admission Diagnosis [ADT] Stat Admission Status [Patient Status] [ADT] Routine 04/20/21 16:24 Meropenem [Merrem] 1 gm Sodium Chloride 0.9% [Normal Saline AdvBag] 100 ml IV ONETIME - Assessment/Plan Last 24 Hours: My Active Orders 04/20/21 12:18 CULTURE BLOOD [BC] Stat 04/20/21 12:22 CBC WITH AUTO DIFF [HEME] Stat CULTURE BLOOD [BC] Stat MANUAL DIFFERENTIAL QA/NC [HEME] Stat 04/20/21 14:52 Sodium Chloride 0.9% [Saline Flush] 10 ml FLUSH ASDIRECTED PRN Blood Culture x2 Reflex Set [OM.PC] Stat Peripheral IV Insertion Adult [OM.PC] Routine 04/20/21 14:53 Peripheral IV Care [RC] . DIRECTED 04/20/21 15:24 RT Aerosol Therapy [RC] ASDIRECTED 04/20/21 16:03 REFLEX LACTIC ACID YES OR NO [CHEM] Routine 04/20/21 16:13 Admission Diagnosis [ADT] Stat Admission Status [Patient Status] [ADT] Routine 04/20/21 16:24 Meropenem [Merrem] 1 gm Sodium Chloride 0.9% [Normal Saline AdvBag] 100 ml IV ONETIME
[2021-04-20 15:41] LABS: O2 DELIVERY DEVICE NON REBR MASK; PCO2 ARTERIAL 23 mmHg (35-45); PO2 ARTERIAL 74 mmHg (70-100)
[2021-04-20 15:42] LABS: ALLEN TEST POSITIVE; BASE EXCESS ARTERIAL -5 mmol/L ((-2)-(+3)); O2 SATURATION ARTERIAL 95 % (95-100)
[2021-04-20 15:53] LABS: ANION GAP 22.2 mEq/L (7-13); CHLORIDE,CL 96 mmol/L (98-107); SODIUM,NA 134 mmol/L (136-145)
--- NOTE | 2021-04-20 15:58 | CR ---
PROCEDURE INFORMATION: Exam: XR Chest Exam date and time: 04/20/2021 3:39 PM Age: 50 years old Clinical indication: Shortness of breath; Patient HX: SOB, hypoxia, crackles R lower base covid + 04/12/2021 TECHNIQUE: Imaging protocol: XR of the chest. Views: 1 view. COMPARISON: CT Chest w Cont 12/31/2017 12:49 PM FINDINGS: Lungs: Infiltrates observed in both lungs. Pleural spaces: Unremarkable. No pleural effusion. No pneumothorax. Heart/Mediastinum: Unremarkable. No cardiomegaly. Bones/joints: Unremarkable. IMPRESSION: Bilateral multifocal pneumonitis
[2021-04-20] MEDS ORDERED: Piperacillin/Tazobactam 3.375 GM in Sodium Chloride 0.9% 100 ML IV ONE (16:20)
[2021-04-20] MEDS ORDERED: Meropenem 1 GM in Sodium Chloride 0.9% 100 ML IV ONE (16:24)
[2021-04-20] MEDS ORDERED: LORazepam 1 MG Tab PO PRN (17:17)
[2021-04-20] MEDS ORDERED: Heparin Sodium 5,000 Units/ML Vial IVPUSH ONE (17:19)
[2021-04-20] MEDS ORDERED: Heparin Sodium/0.45% NaCl 25,000 UNITS/500 ML BAG IV SCH (17:30)
--- NOTE | 2021-04-20 17:46 | PCM.HP ---
H&P History of Present Illness - General Date of Service: 04/20/21 Admit Problem/Dx: Admission Diagnosis/Problem Admission Diagnosis/Problem Pneumonia due to infectious organism Source of Information: Patient, Provider - History of Present Illness Initial Comments - Free Text/Narative: immunocompromised with h/o leukocytoclastic vasculitis, chronic prednisone use Received covid booster () apr 02 Tested negative for covid on 04/07 Developed n/diarrhea, fever, body aches, sob, ear syncope - started 04/08 came to er on 04/12/21 tested positive for covid discharged home symptoms did not improve presented with profound weakness, 2 syncopal episode on 04/16 admitted on 04/16, discharged on 04/18 on 2 l/min nc oxygen since discharge she was becoming more sob and oxygen sats were low at home, - Related Data Allergies/Adverse Reactions: Allergies Allergy/AdvReac Type Severity Reaction Status Date / Time erythromycin lactobionate Allergy Nausea Verified 04/12/21 10:51 [From Erythrocin] Penicillins Allergy Rash Verified 04/12/21 10:51 Home Medications: Home Meds Fluticasone Propionate [Flonase] 1 spray NASBOTH DAILY PRN 12/03/17 [History] Omeprazole [Prilosec] 40 mg PO DAILY 12/03/17 [History] Gabapentin [Neurontin] 400 mg PO BEDTIME 04/12/21 [History] Fluticasone Propion/Salmeterol [Advair 250-50 Diskus] 1 puff INH BID 04/16/21 [History] Montelukast [Singulair] 10 mg PO DAILY 04/16/21 [History] Rosuvastatin [Crestor] 20 mg PO BEDTIME 04/16/21 [History] mycophenolate mofetiL [Mycophenolate Mofetil] 1,000 mg PO BID 04/16/21 [History] Aspirin [Halfprin] 325 mg PO DAILY #14 tab.ec 04/18/21 [Rx] Cholecalciferol (Vitamin D3) [Vitamin D3] 25 mcg PO DAILY #14 tablet 04/18/21 [Rx] Multivitamins/Minerals [Vitamins and Minerals] 1 tab PO WITHBREAKFAST tablet 04/18/21 [Rx] dexAMETHasone [Dexamethasone] 6 mg PO DAILY #7 tab 04/18/21 [Rx] levoFLOXacin [Levaquin] 750 mg PO Q48H #5 tablet 04/18/21 [Rx] oxyCODONE 5 mg PO Q4H PRN #12 tablet 04/18/21 [Rx] Past Medical History HEENT History: Reports: Sinusitis Other HEENT History: 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: Reports: Endometriosis, Spontaneous Other OB/BYN History: HAS IUD Musculoskeletal History: Reports: SLE Other Musculoskeletal History: LUPUS IN REMISSION Neurological History: Reports: None Psychiatric History: Reports: None Endocrine/Metabolic History: Reports: None Hematologic History: Reports: Anemia, Iron Deficiency Immunologic History: Reports: SLE Other Immunologic History: in remission for 11 years (had for 8 years) Oncologic (Cancer) History: Reports: None Dermatologic History: Reports: Cellulitis Other Dermatologic History: esinophyllic cellulitis - Infectious Disease History Infectious Disease History: Reports: Chicken Pox, Novel Coronavirus, Shingles - Past Surgical History Head Surgeries/Procedures: Reports: None HEENT Surgical History: Reports: Adenoidectomy, Cataract Surgery, Eye Surgery, Tonsillectomy, Other (See Below) Other HEENT Surgeries/Procedures: corneal transplant Cardiovascular Surgical History: Reports: None Respiratory Surgical History: Reports: None GI Surgical History: Reports: Colonoscopy, Hernia, Inguinal Female Surgical History: Reports: Other (See Below) Other Female Surgeries/Procedures: kidney biopsy Social & Family History - Family History Family Medical History: No Pertinent Family History - Tobacco Use Tobacco Use Status *Q: Never Tobacco User - Caffeine Use Caffeine Use: Reports: None Other Caffeine Use: 16. oz - Recreational Drug Use Recreational Drug Use: No - Living Situation & Occupation Living situation: Reports: with Family Occupation: Employed H&P Review of Systems - Review of Systems: Review Of Systems: See Below General: Reports: Fever Pulmonary: Reports: Shortness of Breath, Cough. Denies: Wheezing Cardiovascular: Reports: Edema (trace) Gastrointestinal: Denies: Abdominal Pain, Diarrhea, Vomiting Musculoskeletal: Reports: Neck Pain Psychiatric: Denies: Confusion Neurological: Denies: Confusion Exam - Exam Exam: See Below - Vital Signs Vital Signs: Last Vital Signs Temp 97.9 F 04/20/21 15:10 Pulse 88 04/20/21 15:10 Resp 16 04/20/21 15:10 BP 141/65 H 04/20/21 15:10 Pulse Ox 81 L 04/20/21 15:30 Weight: 141 lb 8.588 oz - Exam Quality Assessment: Supplemental Oxygen (on bipap) General: Alert, Oriented Neck: Supple, Trachea Midline Lungs: Clear to Auscultation. No: Normal Respiratory Effort (increased ), Rales, Wheezing Cardiovascular: Regular Rate, Regular Rhythm GI/Abdominal Exam: Normal Bowel Sounds, Soft, Non-Tender Extremities: Pedal Edema (trace b/l LE ) Neurological: Cranial Nerves Intact Neuro Extensive - Mental Status: Alert, Oriented x3 Psychiatric: Alert, Normal Affect, Anxious - Patient Data Lab Results Last 24 hrs: Laboratory Results - last 24 hr 04/20/21 04/20/21 04/20/21 Range/Units 12:22 12:22 12:22 WBC 27.1 H* (5.0-10.0) 10^3/uL RBC 4.02 L (4.2-5.4) 10^6/uL Hgb 11.8 L (12.0-16.0) g/dL Hct 35.8 L (37.0-47.0) % MCV 89.1 (80-100) fL MCH 29.4 (27.0-34.0) pg MCHC 33.0 (33.0-35.0) g/dL Plt Count 490 H D (150-450) 10^3/uL Neut % (Auto) 92.4 H (42.2-75.2) % Lymph % (Auto) 2.7 L (20.5-50.1) % [place] % (Auto) 4.8 (2-8) % Eos % (Auto) 0.0 L (1.0-3.0) % Baso % (Auto) 0.1 (0.0-1.0) % Add Manual Diff Yes Neutrophils % (Manual) 80 H (42-75) % Band Neutrophils % 10 % Lymphocytes % (Manual) 4 L (20-50) % Monocytes % (Manual) 4 (2-8) % Metamyelocytes % 2 Nucleated RBCs 1 /100WBC D-Dimer, Quantitative 1770 H (0-400) ng/mL ABG pH (7.35-7.45) ABG pCO2 (35-45) mmHg ABG pO2 (70-100) mmHg ABG HCO3 (22-26) mmol/L ABG O2 Saturation (95-100) % ABG Base Excess ((-2)-(+3)) mmol/L Danny Test O2 Delivery Device Sodium 134 L (136-145) mmol/L Potassium 4.2 (3.5-5.1) mmol/L Chloride 96 L (98-107) mmol/L Carbon Dioxide 20 L (21-32) mmol/L Anion Gap 22.2 H (7-13) mEq/L BUN 31 H (7-18) mg/dL Creatinine 1.76 H (0.55-1.02) mg/dL Est Cr Clr Drug Dosing TNP Estimated GFR (MDRD) 31 BUN/Creatinine Ratio 17.6 (No establ ref range) Glucose 282 H (70-99) mg/dL Lactic Acid (0.4-2.0) mmol/L Calcium 9.3 (8.5-10.1) mg/dL Magnesium 1.7 L (1.8-2.4) mg/dL Total Bilirubin 0.4 (0.2-1.0) mg/dL AST 40 H (15-37) U/L ALT 130 H (14-59) U/L Alkaline Phosphatase 79 (46-116) U/L C-Reactive Protein 5.6 H (0.0-0.9) mg/dL Total Protein 7.3 (6.4-8.2) g/dL Albumin 2.9 L (3.4-5.0) g/dL Globulin 4.4 Albumin/Globulin Ratio 0.66 04/20/21 04/20/21 Range/Units 12:22 15:19 WBC (5.0-10.0) 10^3/uL RBC (4.2-5.4) 10^6/uL Hgb (12.0-16.0) g/dL Hct (37.0-47.0) % MCV (80-100) fL MCH (27.0-34.0) pg MCHC (33.0-35.0) g/dL Plt Count (150-450) 10^3/uL Neut % (Auto) (42.2-75.2) % Lymph % (Auto) (20.5-50.1) % [place] % (Auto) (2-8) % Eos % (Auto) (1.0-3.0) % Baso % (Auto) (0.0-1.0) % Add Manual Diff Neutrophils % (Manual) (42-75) % Band Neutrophils % % Lymphocytes % (Manual) (20-50) % Monocytes % (Manual) (2-8) % Metamyelocytes % Nucleated RBCs /100WBC D-Dimer, Quantitative (0-400) ng/mL ABG pH 7.49 H (7.35-7.45) ABG pCO2 23 L (35-45) mmHg ABG pO2 74 (70-100) mmHg ABG HCO3 17.0 L (22-26) mmol/L ABG O2 Saturation 95 (95-100) % ABG Base Excess -5 L ((-2)-(+3)) mmol/L Danny Test Positive O2 Delivery Device Non rebr mask Sodium (136-145) mmol/L Potassium (3.5-5.1) mmol/L Chloride (98-107) mmol/L Carbon Dioxide (21-32) mmol/L Anion Gap (7-13) mEq/L BUN (7-18) mg/dL Creatinine (0.55-1.02) mg/dL Est Cr Clr Drug Dosing Estimated GFR (MDRD) BUN/Creatinine Ratio (No establ ref range) Glucose (70-99) mg/dL Lactic Acid 3.0 H* (0.4-2.0) mmol/L Calcium (8.5-10.1) mg/dL Magnesium (1.8-2.4) mg/dL Total Bilirubin (0.2-1.0) mg/dL AST (15-37) U/L ALT (14-59) U/L Alkaline Phosphatase (46-116) U/L C-Reactive Protein (0.0-0.9) mg/dL Total Protein (6.4-8.2) g/dL Albumin (3.4-5.0) g/dL Globulin Albumin/Globulin Ratio Result Diagrams: 04/20/21 12:22 04/20/21 12:22 - Problem List (1) Sepsis SNOMED Code(s): 28117445 ICD Code: A41.9 - SEPSIS, UNSPECIFIED ORGANISM Status: Acute Current Visit: Yes (2) Pneumonia due to COVID-19 virus SNOMED Code(s): 996799897471834746 ICD Code: U07.1 - COVID-19; J12.82 - PNEUMONIA DUE TO CORONAVIRUS DISEASE 2018 Status: Acute Current Visit: Yes (3) COVID SNOMED Code(s): 959803725 ICD Code: U07.1 - COVID-19 Status: Acute Current Visit: No (4) Lactic acidosis SNOMED Code(s): 31240307 ICD Code: E87.2 - ACIDOSIS Status: Acute Current Visit: No Problem List Initiated/Reviewed/Updated: Yes Orders Last 24hrs: Active Orders 24 hr Category Date Time Status Admission Diagnosis [ADT] Stat ADT 04/20/21 16:13 Ordered Admission Status [Patient Status] [ADT] Routine ADT 04/20/21 16:13 Active Antiembolic Devices [RC] PER UNIT ROUTINE Care 04/20/21 17:38 Active Oxygen Therapy [RC] PRN Care 04/20/21 17:37 Active Peripheral IV Care [RC] . DIRECTED Care 04/20/21 14:53 Active RT Aerosol Therapy [RC] ASDIRECTED Care 04/20/21 15:24 Active Up With Assistance [RC] ASDIRECTED Care 04/20/21 17:37 Active VTE/DVT Education [RC] PER UNIT ROUTINE Care 04/20/21 17:37 Active Vital Signs [RC] Q4H Care 04/20/21 17:37 Active Regular Diet [DIET] Diet 04/20/21 Breakfast Active Venous Doppler Lwr Ext Bi [US] Routine Exams 04/20/21 17:32 Ordered BASIC METABOLIC PANEL,BMP [CHEM] AM Lab 04/22/21 05:11 Ordered BASIC METABOLIC PANEL,BMP [CHEM] AM Lab 04/23/21 05:11 Ordered BASIC METABOLIC PANEL,BMP [CHEM] AM Lab 04/24/21 05:11 Ordered BASIC METABOLIC PANEL,BMP [CHEM] AM Lab 04/25/21 05:11 Ordered BASIC METABOLIC PANEL,BMP [CHEM] AM Lab 04/26/21 05:11 Ordered BASIC METABOLIC PANEL,BMP [CHEM] AM Lab 04/27/21 05:11 Ordered CBC WITH AUTO DIFF [HEME] AM Lab 04/22/21 05:11 Ordered CBC WITH AUTO DIFF [HEME] AM Lab 04/23/21 05:11 Ordered CBC WITH AUTO DIFF [HEME] AM Lab 04/24/21 05:11 Ordered CBC WITH AUTO DIFF [HEME] AM Lab 04/25/21 05:11 Ordered CBC WITH AUTO DIFF [HEME] AM Lab 04/26/21 05:11 Ordered CBC WITH AUTO DIFF [HEME] AM Lab 04/27/21 05:11 Ordered CULTURE BLOOD [BC] Stat Lab 04/20/21 12:18 Received CULTURE BLOOD [BC] Stat Lab 04/20/21 12:22 Received CULTURE SPUTUM + SMEAR [RM] Routine Lab 04/20/21 17:21 Ordered DD [D-DIMER QUANTITATIVE] [COAG] AM Lab 04/21/21 05:11 Ordered DD [D-DIMER QUANTITATIVE] [COAG] AM Lab 04/22/21 05:11 Ordered DD [D-DIMER QUANTITATIVE] [COAG] AM Lab 04/23/21 05:11 Ordered DD [D-DIMER QUANTITATIVE] [COAG] AM Lab 04/24/21 05:11 Ordered DD [D-DIMER QUANTITATIVE] [COAG] AM Lab 04/25/21 05:11 Ordered DD [D-DIMER QUANTITATIVE] [COAG] AM Lab 04/26/21 05:11 Ordered HEPATIC FUNCTION PANEL,HFP [CHEM] AM Lab 04/21/21 05:11 Ordered HEPATIC FUNCTION PANEL,HFP [CHEM] AM Lab 04/22/21 05:11 Ordered HEPATIC FUNCTION PANEL,HFP [CHEM] AM Lab 04/23/21 05:11 Ordered HEPATIC FUNCTION PANEL,HFP [CHEM] AM Lab 04/24/21 05:11 Ordered HEPATIC FUNCTION PANEL,HFP [CHEM] AM Lab 04/25/21 05:11 Ordered HEPATIC FUNCTION PANEL,HFP [CHEM] AM Lab 04/26/21 05:11 Ordered LACTIC ACID [CHEM] Routine Lab 04/20/21 17:39 Ordered PROCALCITONIN [REF] AM Lab 04/21/21 05:11 Ordered PROCALCITONIN [REF] AM Lab 04/22/21 05:11 Ordered PROCALCITONIN [REF] AM Lab 04/23/21 05:11 Ordered PROCALCITONIN [REF] AM Lab 04/24/21 05:11 Ordered PROCALCITONIN [REF] AM Lab 04/25/21 05:11 Ordered PROCALCITONIN [REF] AM Lab 04/26/21 05:11 Ordered REFLEX LACTIC ACID YES OR NO [CHEM] Routine Lab 04/20/21 16:03 Received VANCOMYCIN TROUGH [CHEM] Timed Lab 04/28/21 17:30 Ordered Aspirin [Halfprin] Med 04/21/21 09:00 Ordered 325 mg PO DAILY Cholecalciferol (Vitamin D3) [Vitamin D3] Med 04/21/21 09:00 Ordered 25 mcg PO DAILY Fluticasone Propion/Salmeterol Med 04/20/21 21:00 Ordered 1 puff INH BID Gabapentin [Neurontin] Med 04/20/21 21:00 Pending 400 mg PO BEDTIME Heparin Sodium/0.45% NaCl [Heparin 25,000 Units in 1/2 Med 04/20/21 17:30 Active NS 500 ML] 25,000 units in 500 ml IV TITRATE LORazepam [Ativan] Med 04/20/21 17:17 Active 1 mg PO Q6H PRN Meropenem [Merrem] 1 gm Med 04/20/21 18:00 Active Sodium Chloride 0.9% [Normal Saline AdvBag] 100 ml IV Q8HR Montelukast [Singulair] Med 04/21/21 09:00 Ordered 10 mg PO DAILY Multivitamins/Minerals [Vitamins and Minerals] Med 04/21/21 08:00 Ordered 1 tab PO WITHBREAKFAST Omeprazole [Prilosec] Med 04/21/21 09:00 Ordered 40 mg PO DAILY Pharmacy to Dose - Vancomycin Med 04/20/21 17:30 Pending 1 dose .XX ASDIRECTED Sodium Chloride 0.9% [Saline Flush] Med 04/20/21 14:52 Active 10 ml FLUSH ASDIRECTED PRN Temazepam [Restoril] Med 04/20/21 17:37 Active 15 mg PO BEDTIME PRN Vancomycin 1 gm Med 04/20/21 18:00 Active Sodium Chloride 0.9% [Normal Saline AdvBag] 250 ml IV Q48H dexAMETHasone [Decadron] Med 04/20/21 17:30 Active 6 mg IVPUSH DAILY mycophenolate mofetiL [Mycophenolate Mofetil] Med 04/20/21 21:00 Ordered 1,000 mg PO BID oxyCODONE Med 04/20/21 17:23 Ordered 5 mg PO Q4H PRN Antiembolic Hose [OM.PC] Per Unit Routine Oth 04/20/21 17:37 Ordered Blood Culture x2 Reflex Set [OM.PC] Stat Oth 04/20/21 14:52 Ordered Peripheral IV Insertion Adult [OM.PC] Routine Oth 04/20/21 14:52 Ordered Resuscitation Status Routine Resus Stat 04/20/21 17:37 Ordered Medication Orders Aspirin (Aspirin 81 Mg Tab.Ec) 325 mg PO DAILY DEONTE Cholecalciferol (Cholecalciferol (Vitamin D3) 25 Mcg Tab) 25 mcg PO DAILY DEONTE Dexamethasone (Dexamethasone 4 Mg/Ml Sdv) 6 mg IVPUSH DAILY DEONTE Gabapentin (Gabapentin 400 Mg Cap) 400 mg PO BEDTIME DEONTE Meropenem 1 gm/ Sodium (Chloride) 100 mls @ 200 mls/hr IV Q8HR DEONTE Heparin Sodium/Sodium Chloride (Heparin 25,000 Units In 1/2 Ns 500 Ml) 25,000 units in 500 mls @ 23.112 mls/hr IV TITRATE DEONTE; Protocol Vancomycin HCl 1 gm/ Sodium (Chloride) 250 mls @ 250 mls/hr IV Q48H DEONTE Lorazepam (Lorazepam 1 Mg Tab) 1 mg PO Q6H PRN PRN Reason: Anxiety Montelukast Sodium (Montelukast 10 Mg Tab) 10 mg PO DAILY DEONTE Multivitamins/Minerals (Multivitamins, Therapeutic With Minerals Tab) 1 tab PO WITHBREAKFAST DEONTE Non-Formulary Medication (Fluticasone Propion/Salmeterol) 1 puff INH BID DEONTE Non-Formulary Medication (Mycophenolate Mofetil [Mycophenolate Mofetil]) 1,000 mg PO BID DEONTE Non-Formulary Medication (Omeprazole [Prilosec]) 40 mg PO DAILY DEONTE Oxycodone HCl (Oxycodone 5 Mg Tab) 5 mg PO Q4H PRN PRN Reason: Pain (moderate 4-6) Sodium Chloride (Sodium Chloride 0.9% 10 Ml Syringe) 10 ml FLUSH ASDIRECTED PRN PRN Reason: Keep Vein Open Last Admin: 04/20/21 15:18 Dose: 10 ml Documented by: JEET Temazepam (Temazepam 15 Mg Cap) 15 mg PO BEDTIME PRN PRN Reason: Sleep Vancomycin HCl (Pharmacy To Dose - Vancomycin) 1 dose .XX ASDIRECTED DEONTE Assessment/Plan Comment:: immunocompromised with h/o leukocytoclastic vasculitis, chronic prednisone use Received covid booster () apr 02 Tested negative for covid on 04/07 Developed n/diarrhea, fever, body aches, sob, ear syncope - started 04/08 came to er on 04/12/21 tested positive for covid discharged home symptoms did not improve presented with profound weakness, 2 syncopal episode on 04/16 admitted on 04/16, discharged on 04/18 on 2 l/min nc oxygen since discharge she was becoming more sob and oxygen sats were low at home Acute covid 19 pneumonia in immunocompromised patient As seen on ct 04/16/21 Vaccination status: vaccinated Symptom onset: about 04/08/21 Covid test positive: 04/12/21 Treat with dexamethasone During the last admission we started but stopped remdesivir given increase in ast, alt - hold off now Treat with mvi /vit d acute hypoxemic respiratory failure severe - requiring bipap will taper as possible Evaluations for concurrent bacterial pneumonia: Procalcitonin: elevated 04/18/21 leukocytosis noted cxr: bilateral patchy infiltrates obtain blood culture started levofloxacin during last admission will transition to meropenem, vanc, Evaluations for thrombotic complications Ddimer: increased Has significant hypoxemia Concern for PE Will hold off on CT with contrast re: CKD Prophylaxis: treat empirically with heparin full dose wght based nomogram Obtain LE us ro dvt Sepsis No severe sepsis Due to viral infection , possibly due to Bacterial pneumonia Will hold off on IVFs Treat possible bacterial infection Supportive tx. Hyponatremia Mld follow periodically h/o leukocytoclastic vasculitis/cellulitis on chronic prednisone 4 mg qod will treat with dexa cont mycophenolate critical care provided for severe hypoxemia, sepsis for more than 50 min
[2021-04-20] MEDS ORDERED: Meropenem 1 GM in Sodium Chloride 0.9% 100 ML IV SCH (18:00)
[2021-04-20] MEDS: Dexamethasone 4 MG/ML SDV IVPUSH SCH (18:48)
[2021-04-20] MEDS: oxyCODONE 5 MG Tab PO PRN (19:27)
--- NOTE | 2021-04-20 19:47 | US ---
PROCEDURE INFORMATION: Exam: US Duplex Lower Extremity Veins, Bilateral Exam date and time: 04/20/2021 6:48 PM Age: 50 years old Clinical indication: Other: Covid pos PT; Additional info: High ddimer, hypoxemia, covid TECHNIQUE: Imaging protocol: Real-time duplex ultrasound of the extremities with 2-D freeman scale, color Doppler flow and spectral waveform analysis with image documentation. Complete exam focused on the bilateral lower extremity veins. COMPARISON: CT Abdomen Pelvis wo Cont 07/12/2020 9:40 PM FINDINGS: Right deep veins: Unremarkable. The common femoral, femoral, proximal profunda femoral and popliteal veins are patent without thrombus. Normal Doppler waveforms. Normal compressibility and/or augmentation response. Right superficial veins: Saphenofemoral junction is patent without thrombus. Left deep veins: Unremarkable. The common femoral, femoral, proximal profunda femoral and popliteal veins are patent without thrombus. Normal Doppler waveforms. Normal compressibility and/or augmentation response. Left superficial veins: Saphenofemoral junction is patent without thrombus. Soft tissues: Unremarkable. IMPRESSION: No evidence of deep vein thrombosis.
[2021-04-20] MEDS: Gabapentin 400 MG Cap PO SCH (21:45)
[2021-04-20] MEDS: Temazepam 15 MG Cap PO PRN (21:45)
[2021-04-20] MEDS: Mycophenolate Mofetil 250 MG Cap PO SCH (21:46)
[2021-04-20] MEDS: Formoterol/Mometasone 200-5 MCG 8.8 GM Inhaler IH SCH (21:48)
[2021-04-21] MEDS: Meropenem 1 GM in Sodium Chloride 0.9% 100 ML IV SCH ×2 (05:58→17:16)
[2021-04-21] MEDS: Omeprazole 20 MG Cap.CR PO SCH (06:02)
[2021-04-21] MEDS: Mycophenolate Mofetil 250 MG Cap PO SCH ×2 (06:03→17:15)
[2021-04-21] MEDS: oxyCODONE 5 MG Tab PO PRN (06:34)
[2021-04-21] MEDS: Multivitamins, Therapeutic with Minerals Tab PO SCH (09:14)
[2021-04-21] MEDS: Aspirin 325 MG Tab.EC PO SCH (09:14)
[2021-04-21] MEDS: Montelukast 10 MG Tab PO SCH (09:14)
[2021-04-21] MEDS: Cholecalciferol (Vitamin D3) 25 MCG Tab PO SCH (09:15)
[2021-04-21] MEDS: Dexamethasone 4 MG/ML SDV IVPUSH SCH (09:15)
[2021-04-21] MEDS: Formoterol/Mometasone 200-5 MCG 8.8 GM Inhaler IH SCH ×2 (09:16→21:05)
--- NOTE | 2021-04-21 10:54 | PCM.PN ---
- General Info Date of Service: 04/21/21 Admission Dx/Problem (Free Text): Admission Diagnosis/Problem Admission Diagnosis/Problem Pneumonia due to infectious organism Subjective Update: remained on Bipap - sats are good but quickly desats without it associated with sob, has been present for days better with bipap, worse without has cough, some sputum no fever Functional Status: Reports: Pain Controlled - Review of Systems General: Denies: Fever Pulmonary: Reports: Shortness of Breath, Sputum Cardiovascular: Reports: Chest Pain (with cough) Gastrointestinal: Denies: Abdominal Pain Genitourinary: Denies: Dysuria Psychiatric: Denies: Confusion - Patient Data Vitals - Most Recent: Last Vital Signs Temp 97.2 F 04/21/21 08:00 Pulse 71 04/21/21 08:00 Resp 18 04/21/21 08:00 BP 119/76 04/21/21 08:00 Pulse Ox 95 04/21/21 08:00 Weight - Most Recent: 141 lb 8.588 oz Lab Results Last 24 Hours: Laboratory Results - last 24 hr 04/20/21 04/20/21 04/20/21 Range/Units 15:19 15:22 15:22 WBC 27.1 H* (5.0-10.0) 10^3/uL RBC 4.02 L (4.2-5.4) 10^6/uL Hgb 11.8 L (12.0-16.0) g/dL Hct 35.8 L (37.0-47.0) % MCV 89.1 (80-100) fL MCH 29.4 (27.0-34.0) pg MCHC 33.0 (33.0-35.0) g/dL Plt Count 490 H D (150-450) 10^3/uL Neut % (Auto) 92.4 H (42.2-75.2) % Lymph % (Auto) 2.7 L (20.5-50.1) % Caldwell % (Auto) 4.8 (2-8) % Eos % (Auto) 0.0 L (1.0-3.0) % Baso % (Auto) 0.1 (0.0-1.0) % Add Manual Diff Yes Neutrophils % (Manual) 80 H (42-75) % Band Neutrophils % 10 % Lymphocytes % (Manual) 4 L (20-50) % Monocytes % (Manual) 4 (2-8) % Metamyelocytes % 2 Nucleated RBCs 1 /100WBC APTT (22.0-34.0) SEC D-Dimer, Quantitative 1770 H (0-400) ng/mL ABG pH 7.49 H (7.35-7.45) ABG pCO2 23 L (35-45) mmHg ABG pO2 74 (70-100) mmHg ABG HCO3 17.0 L (22-26) mmol/L ABG O2 Saturation 95 (95-100) % ABG Base Excess -5 L ((-2)-(+3)) mmol/L Danny Test Positive O2 Delivery Device Non rebr mask Sodium (136-145) mmol/L Potassium (3.5-5.1) mmol/L Chloride (98-107) mmol/L Carbon Dioxide (21-32) mmol/L Anion Gap (7-13) mEq/L BUN (7-18) mg/dL Creatinine (0.55-1.02) mg/dL Est Cr Clr Drug Dosing Estimated GFR (MDRD) BUN/Creatinine Ratio (No establ ref range) Glucose (70-99) mg/dL Lactic Acid (0.4-2.0) mmol/L Calcium (8.5-10.1) mg/dL Magnesium (1.8-2.4) mg/dL Total Bilirubin (0.2-1.0) mg/dL Direct Bilirubin (0.0-0.2) mg/dL Indirect Bilirubin AST (15-37) U/L ALT (14-59) U/L Alkaline Phosphatase (46-116) U/L C-Reactive Protein (0.0-0.9) mg/dL Total Protein (6.4-8.2) g/dL Albumin (3.4-5.0) g/dL Globulin Albumin/Globulin Ratio 04/20/21 04/20/21 04/20/21 Range/Units 15:22 15:22 15:44 WBC (5.0-10.0) 10^3/uL RBC (4.2-5.4) 10^6/uL Hgb (12.0-16.0) g/dL Hct (37.0-47.0) % MCV (80-100) fL MCH (27.0-34.0) pg MCHC (33.0-35.0) g/dL Plt Count (150-450) 10^3/uL Neut % (Auto) (42.2-75.2) % Lymph % (Auto) (20.5-50.1) % Caldwell % (Auto) (2-8) % Eos % (Auto) (1.0-3.0) % Baso % (Auto) (0.0-1.0) % Add Manual Diff Neutrophils % (Manual) (42-75) % Band Neutrophils % % Lymphocytes % (Manual) (20-50) % Monocytes % (Manual) (2-8) % Metamyelocytes % Nucleated RBCs /100WBC APTT 26.3 (22.0-34.0) SEC D-Dimer, Quantitative (0-400) ng/mL ABG pH (7.35-7.45) ABG pCO2 (35-45) mmHg ABG pO2 (70-100) mmHg ABG HCO3 (22-26) mmol/L ABG O2 Saturation (95-100) % ABG Base Excess ((-2)-(+3)) mmol/L Danny Test O2 Delivery Device Sodium 134 L (136-145) mmol/L Potassium 4.2 (3.5-5.1) mmol/L Chloride 96 L (98-107) mmol/L Carbon Dioxide 20 L (21-32) mmol/L Anion Gap 22.2 H (7-13) mEq/L BUN 31 H (7-18) mg/dL Creatinine 1.76 H (0.55-1.02) mg/dL Est Cr Clr Drug Dosing TNP Estimated GFR (MDRD) 31 BUN/Creatinine Ratio 17.6 (No establ ref range) Glucose 282 H (70-99) mg/dL Lactic Acid 3.0 H* (0.4-2.0) mmol/L Calcium 9.3 (8.5-10.1) mg/dL Magnesium 1.7 L (1.8-2.4) mg/dL Total Bilirubin 0.4 (0.2-1.0) mg/dL Direct Bilirubin (0.0-0.2) mg/dL Indirect Bilirubin AST 40 H (15-37) U/L ALT 130 H (14-59) U/L Alkaline Phosphatase 79 (46-116) U/L C-Reactive Protein 5.6 H (0.0-0.9) mg/dL Total Protein 7.3 (6.4-8.2) g/dL Albumin 2.9 L (3.4-5.0) g/dL Globulin 4.4 Albumin/Globulin Ratio 0.66 04/20/21 04/21/21 04/21/21 Range/Units 20:45 02:30 07:45 WBC (5.0-10.0) 10^3/uL RBC (4.2-5.4) 10^6/uL Hgb (12.0-16.0) g/dL Hct (37.0-47.0) % MCV (80-100) fL MCH (27.0-34.0) pg MCHC (33.0-35.0) g/dL Plt Count (150-450) 10^3/uL Neut % (Auto) (42.2-75.2) % Lymph % (Auto) (20.5-50.1) % Caldwell % (Auto) (2-8) % Eos % (Auto) (1.0-3.0) % Baso % (Auto) (0.0-1.0) % Add Manual Diff Neutrophils % (Manual) (42-75) % Band Neutrophils % % Lymphocytes % (Manual) (20-50) % Monocytes % (Manual) (2-8) % Metamyelocytes % Nucleated RBCs /100WBC APTT 76.6 H (22.0-34.0) SEC D-Dimer, Quantitative 1590 H (0-400) ng/mL ABG pH (7.35-7.45) ABG pCO2 (35-45) mmHg ABG pO2 (70-100) mmHg ABG HCO3 (22-26) mmol/L ABG O2 Saturation (95-100) % ABG Base Excess ((-2)-(+3)) mmol/L Danny Test O2 Delivery Device Sodium (136-145) mmol/L Potassium (3.5-5.1) mmol/L Chloride (98-107) mmol/L Carbon Dioxide (21-32) mmol/L Anion Gap (7-13) mEq/L BUN (7-18) mg/dL Creatinine (0.55-1.02) mg/dL Est Cr Clr Drug Dosing Estimated GFR (MDRD) BUN/Creatinine Ratio (No establ ref range) Glucose (70-99) mg/dL Lactic Acid 2.0 (0.4-2.0) mmol/L Calcium (8.5-10.1) mg/dL Magnesium (1.8-2.4) mg/dL Total Bilirubin (0.2-1.0) mg/dL Direct Bilirubin (0.0-0.2) mg/dL Indirect Bilirubin AST (15-37) U/L ALT (14-59) U/L Alkaline Phosphatase (46-116) U/L C-Reactive Protein (0.0-0.9) mg/dL Total Protein (6.4-8.2) g/dL Albumin (3.4-5.0) g/dL Globulin Albumin/Globulin Ratio 04/21/21 04/21/21 04/21/21 Range/Units 07:45 07:45 07:45 WBC (5.0-10.0) 10^3/uL RBC (4.2-5.4) 10^6/uL Hgb (12.0-16.0) g/dL Hct (37.0-47.0) % MCV (80-100) fL MCH (27.0-34.0) pg MCHC (33.0-35.0) g/dL Plt Count (150-450) 10^3/uL Neut % (Auto) (42.2-75.2) % Lymph % (Auto) (20.5-50.1) % Caldwell % (Auto) (2-8) % Eos % (Auto) (1.0-3.0) % Baso % (Auto) (0.0-1.0) % Add Manual Diff Neutrophils % (Manual) (42-75) % Band Neutrophils % % Lymphocytes % (Manual) (20-50) % Monocytes % (Manual) (2-8) % Metamyelocytes % Nucleated RBCs /100WBC APTT > 120.0 H* (22.0-34.0) SEC D-Dimer, Quantitative (0-400) ng/mL ABG pH (7.35-7.45) ABG pCO2 (35-45) mmHg ABG pO2 (70-100) mmHg ABG HCO3 (22-26) mmol/L ABG O2 Saturation (95-100) % ABG Base Excess ((-2)-(+3)) mmol/L Danny Test O2 Delivery Device Sodium (136-145) mmol/L Potassium (3.5-5.1) mmol/L Chloride (98-107) mmol/L Carbon Dioxide (21-32) mmol/L Anion Gap (7-13) mEq/L BUN (7-18) mg/dL Creatinine 1.45 H (0.55-1.02) mg/dL Est Cr Clr Drug Dosing 33.34 Estimated GFR (MDRD) 38 BUN/Creatinine Ratio (No establ ref range) Glucose (70-99) mg/dL Lactic Acid (0.4-2.0) mmol/L Calcium (8.5-10.1) mg/dL Magnesium (1.8-2.4) mg/dL Total Bilirubin 0.4 (0.2-1.0) mg/dL Direct Bilirubin 0.2 (0.0-0.2) mg/dL Indirect Bilirubin 0.2 AST 30 (15-37) U/L ALT 93 H (14-59) U/L Alkaline Phosphatase 64 (46-116) U/L C-Reactive Protein (0.0-0.9) mg/dL Total Protein 6.3 L (6.4-8.2) g/dL Albumin 2.5 L (3.4-5.0) g/dL Globulin 3.8 Albumin/Globulin Ratio 0.66 Conner Results Last 24 Hours: Microbiology 04/20/21 20:55 Gram Stain - Final Sputum - Expectorated Med Orders - Current: Current Medications Aspirin (Aspirin 325 Mg Tab.Ec) 325 mg PO DAILY [facility] Last Admin: 04/21/21 09:14 Dose: 325 mg Documented by: Cholecalciferol (Cholecalciferol (Vitamin D3) 25 Mcg Tab) 25 mcg PO DAILY [facility] Last Admin: 04/21/21 09:15 Dose: 25 mcg Documented by: Dexamethasone (Dexamethasone 4 Mg/Ml Sdv) 6 mg IVPUSH DAILY [facility] Last Admin: 04/21/21 09:15 Dose: 6 mg Documented by: Gabapentin (Gabapentin 400 Mg Cap) 400 mg PO BEDTIME [facility] Last Admin: 04/20/21 21:45 Dose: 400 mg Documented by: Heparin Sodium/Sodium Chloride (Heparin 25,000 Units In 1/2 Ns 500 Ml) 25,000 units in 500 mls @ 23.112 mls/hr IV TITRATE DEONTE; Protocol Last Titration: 04/21/21 03:37 Dose: 16 units/kg/hr, 20.544 mls/hr Documented by: Vancomycin HCl 1 gm/ Sodium (Chloride) 250 mls @ 250 mls/hr IV Q48H DEONTE Last Admin: 04/20/21 19:32 Dose: 250 mls/hr Documented by: Meropenem 1 gm/ Sodium (Chloride) 100 mls @ 200 mls/hr IV Q12H DEONTE Last Admin: 04/21/21 05:58 Dose: 200 mls/hr Documented by: Lorazepam (Lorazepam 1 Mg Tab) 1 mg PO Q6H PRN PRN Reason: Anxiety Mometasone Furoate/Formoterol Fumar (Formoterol/Mometasone 200-5 Mcg 8.8 Gm Inhaler) 2 puff IH BID [facility] Last Admin: 04/21/21 09:16 Dose: 2 puff Documented by: Montelukast Sodium (Montelukast 10 Mg Tab) 10 mg PO DAILY [facility] Last Admin: 04/21/21 09:14 Dose: 10 mg Documented by: Multivitamins/Minerals (Multivitamins, Therapeutic With Minerals Tab) 1 tab PO WITHBREAKFAST [facility] Last Admin: 04/21/21 09:14 Dose: 1 tab Documented by: Mycophenolate Mofetil (Mycophenolate Mofetil 250 Mg Cap) 1,000 mg PO BIDAC [facility] Last Admin: 04/21/21 06:03 Dose: 1,000 mg Documented by: Omeprazole (Omeprazole 20 Mg Cap.Cr) 40 mg PO ACBREAKFAST [facility] Last Admin: 04/21/21 06:02 Dose: 40 mg Documented by: Oxycodone HCl (Oxycodone 5 Mg Tab) 5 mg PO Q4H PRN PRN Reason: Pain (moderate 4-6) Last Admin: 04/21/21 06:34 Dose: 5 mg Documented by: Sodium Chloride (Sodium Chloride 0.9% 10 Ml Syringe) 10 ml FLUSH ASDIRECTED PRN PRN Reason: Keep Vein Open Last Admin: 04/20/21 15:18 Dose: 10 ml Documented by: Temazepam (Temazepam 15 Mg Cap) 15 mg PO BEDTIME PRN PRN Reason: Sleep Last Admin: 04/20/21 21:45 Dose: 15 mg Documented by: Vancomycin HCl (Pharmacy To Dose - Vancomycin) 1 dose .XX ASDIRECTED DEONTE Discontinued Medications Albuterol/Ipratropium (Albuterol/Ipratropium 3.0-0.5 Mg/3 Ml Neb Soln) 6 ml NEB ONETIME ONE Stop: 04/20/21 15:24 Heparin Sodium (Porcine) (Heparin Sodium 5,000 Units/Ml Vial) 5,000 units IVPUSH .BOLUS ONE Stop: 04/20/21 17:20 Last Admin: 04/20/21 18:48 Dose: 5,000 units Documented by: Sodium Chloride (Normal Saline) 1,000 mls @ 999 mls/hr IV .BOLUS ONE Stop: 04/20/21 16:33 Last Admin: 04/20/21 18:47 Dose: 999 mls/hr Documented by: Piperacillin Sod/Tazobactam (Sod 3.375 gm/ Sodium Chloride) 100 mls @ 200 mls/hr IV ONETIME ONE Stop: 04/20/21 16:49 Meropenem 1 gm/ Sodium (Chloride) 100 mls @ 200 mls/hr IV ONETIME ONE Stop: 04/20/21 16:53 Last Admin: 04/20/21 18:10 Dose: Not Given Documented by: Meropenem 1 gm/ Sodium (Chloride) 100 mls @ 200 mls/hr IV Q8HR DEONTE Last Admin: 04/20/21 18:47 Dose: 200 mls/hr Documented by: - Exam Quality Assessment: Supplemental Oxygen (bipap on 100% oxygen) General: Alert, Oriented Neck: Supple Lungs: Rhonchi (left right side) Cardiovascular: Regular Rate, Regular Rhythm GI/Abdominal Exam: Normal Bowel Sounds, Soft, Non-Tender Extremities: No Pedal Edema - Patient Data Lab Results Last 24 hrs: Laboratory Results - last 24 hr 04/20/21 04/20/21 04/20/21 Range/Units 15:19 15:22 15:22 WBC 27.1 H* (5.0-10.0) 10^3/uL RBC 4.02 L (4.2-5.4) 10^6/uL Hgb 11.8 L (12.0-16.0) g/dL Hct 35.8 L (37.0-47.0) % MCV 89.1 (80-100) fL MCH 29.4 (27.0-34.0) pg MCHC 33.0 (33.0-35.0) g/dL Plt Count 490 H D (150-450) 10^3/uL Neut % (Auto) 92.4 H (42.2-75.2) % Lymph % (Auto) 2.7 L (20.5-50.1) % Caldwell % (Auto) 4.8 (2-8) % Eos % (Auto) 0.0 L (1.0-3.0) % Baso % (Auto) 0.1 (0.0-1.0) % Add Manual Diff Yes Neutrophils % (Manual) 80 H (42-75) % Band Neutrophils % 10 % Lymphocytes % (Manual) 4 L (20-50) % Monocytes % (Manual) 4 (2-8) % Metamyelocytes % 2 Nucleated RBCs 1 /100WBC APTT (22.0-34.0) SEC D-Dimer, Quantitative 1770 H (0-400) ng/mL ABG pH 7.49 H (7.35-7.45) ABG pCO2 23 L (35-45) mmHg ABG pO2 74 (70-100) mmHg ABG HCO3 17.0 L (22-26) mmol/L ABG O2 Saturation 95 (95-100) % ABG Base Excess -5 L ((-2)-(+3)) mmol/L Danny Test Positive O2 Delivery Device Non rebr mask Sodium (136-145) mmol/L Potassium (3.5-5.1) mmol/L Chloride (98-107) mmol/L Carbon Dioxide (21-32) mmol/L Anion Gap (7-13) mEq/L BUN (7-18) mg/dL Creatinine (0.55-1.02) mg/dL Est Cr Clr Drug Dosing Estimated GFR (MDRD) BUN/Creatinine Ratio (No establ ref range) Glucose (70-99) mg/dL Lactic Acid (0.4-2.0) mmol/L Calcium (8.5-10.1) mg/dL Magnesium (1.8-2.4) mg/dL Total Bilirubin (0.2-1.0) mg/dL Direct Bilirubin (0.0-0.2) mg/dL Indirect Bilirubin AST (15-37) U/L ALT (14-59) U/L Alkaline Phosphatase (46-116) U/L C-Reactive Protein (0.0-0.9) mg/dL Total Protein (6.4-8.2) g/dL Albumin (3.4-5.0) g/dL Globulin Albumin/Globulin Ratio 04/20/21 04/20/21 04/20/21 Range/Units 15:22 15:22 15:44 WBC (5.0-10.0) 10^3/uL RBC (4.2-5.4) 10^6/uL Hgb (12.0-16.0) g/dL Hct (37.0-47.0) % MCV (80-100) fL MCH (27.0-34.0) pg MCHC (33.0-35.0) g/dL Plt Count (150-450) 10^3/uL Neut % (Auto) (42.2-75.2) % Lymph % (Auto) (20.5-50.1) % Caldwell % (Auto) (2-8) % Eos % (Auto) (1.0-3.0) % Baso % (Auto) (0.0-1.0) % Add Manual Diff Neutrophils % (Manual) (42-75) % Band Neutrophils % % Lymphocytes % (Manual) (20-50) % Monocytes % (Manual) (2-8) % Metamyelocytes % Nucleated RBCs /100WBC APTT 26.3 (22.0-34.0) SEC D-Dimer, Quantitative (0-400) ng/mL ABG pH (7.35-7.45) ABG pCO2 (35-45) mmHg ABG pO2 (70-100) mmHg ABG HCO3 (22-26) mmol/L ABG O2 Saturation (95-100) % ABG Base Excess ((-2)-(+3)) mmol/L Danny Test O2 Delivery Device Sodium 134 L (136-145) mmol/L Potassium 4.2 (3.5-5.1) mmol/L Chloride 96 L (98-107) mmol/L Carbon Dioxide 20 L (21-32) mmol/L Anion Gap 22.2 H (7-13) mEq/L BUN 31 H (7-18) mg/dL Creatinine 1.76 H (0.55-1.02) mg/dL Est Cr Clr Drug Dosing TNP Estimated GFR (MDRD) 31 BUN/Creatinine Ratio 17.6 (No establ ref range) Glucose 282 H (70-99) mg/dL Lactic Acid 3.0 H* (0.4-2.0) mmol/L Calcium 9.3 (8.5-10.1) mg/dL Magnesium 1.7 L (1.8-2.4) mg/dL Total Bilirubin 0.4 (0.2-1.0) mg/dL Direct Bilirubin (0.0-0.2) mg/dL Indirect Bilirubin AST 40 H (15-37) U/L ALT 130 H (14-59) U/L Alkaline Phosphatase 79 (46-116) U/L C-Reactive Protein 5.6 H (0.0-0.9) mg/dL Total Protein 7.3 (6.4-8.2) g/dL Albumin 2.9 L (3.4-5.0) g/dL Globulin 4.4 Albumin/Globulin Ratio 0.66 04/20/21 04/21/21 04/21/21 Range/Units 20:45 02:30 07:45 WBC (5.0-10.0) 10^3/uL RBC (4.2-5.4) 10^6/uL Hgb (12.0-16.0) g/dL Hct (37.0-47.0) % MCV (80-100) fL MCH (27.0-34.0) pg MCHC (33.0-35.0) g/dL Plt Count (150-450) 10^3/uL Neut % (Auto) (42.2-75.2) % Lymph % (Auto) (20.5-50.1) % Caldwell % (Auto) (2-8) % Eos % (Auto) (1.0-3.0) % Baso % (Auto) (0.0-1.0) % Add Manual Diff Neutrophils % (Manual) (42-75) % Band Neutrophils % % Lymphocytes % (Manual) (20-50) % Monocytes % (Manual) (2-8) % Metamyelocytes % Nucleated RBCs /100WBC APTT 76.6 H (22.0-34.0) SEC D-Dimer, Quantitative 1590 H (0-400) ng/mL ABG pH (7.35-7.45) ABG pCO2 (35-45) mmHg ABG pO2 (70-100) mmHg ABG HCO3 (22-26) mmol/L ABG O2 Saturation (95-100) % ABG Base Excess ((-2)-(+3)) mmol/L Danny Test O2 Delivery Device Sodium (136-145) mmol/L Potassium (3.5-5.1) mmol/L Chloride (98-107) mmol/L Carbon Dioxide (21-32) mmol/L Anion Gap (7-13) mEq/L BUN (7-18) mg/dL Creatinine (0.55-1.02) mg/dL Est Cr Clr Drug Dosing Estimated GFR (MDRD) BUN/Creatinine Ratio (No establ ref range) Glucose (70-99) mg/dL Lactic Acid 2.0 (0.4-2.0) mmol/L Calcium (8.5-10.1) mg/dL Magnesium (1.8-2.4) mg/dL Total Bilirubin (0.2-1.0) mg/dL Direct Bilirubin (0.0-0.2) mg/dL Indirect Bilirubin AST (15-37) U/L ALT (14-59) U/L Alkaline Phosphatase (46-116) U/L C-Reactive Protein (0.0-0.9) mg/dL Total Protein (6.4-8.2) g/dL Albumin (3.4-5.0) g/dL Globulin Albumin/Globulin Ratio 04/21/21 04/21/21 04/21/21 Range/Units 07:45 07:45 07:45 WBC (5.0-10.0) 10^3/uL RBC (4.2-5.4) 10^6/uL Hgb (12.0-16.0) g/dL Hct (37.0-47.0) % MCV (80-100) fL MCH (27.0-34.0) pg MCHC (33.0-35.0) g/dL Plt Count (150-450) 10^3/uL Neut % (Auto) (42.2-75.2) % Lymph % (Auto) (20.5-50.1) % Caldwell % (Auto) (2-8) % Eos % (Auto) (1.0-3.0) % Baso % (Auto) (0.0-1.0) % Add Manual Diff Neutrophils % (Manual) (42-75) % Band Neutrophils % % Lymphocytes % (Manual) (20-50) % Monocytes % (Manual) (2-8) % Metamyelocytes % Nucleated RBCs /100WBC APTT > 120.0 H* (22.0-34.0) SEC D-Dimer, Quantitative (0-400) ng/mL ABG pH (7.35-7.45) ABG pCO2 (35-45) mmHg ABG pO2 (70-100) mmHg ABG HCO3 (22-26) mmol/L ABG O2 Saturation (95-100) % ABG Base Excess ((-2)-(+3)) mmol/L Danny Test O2 Delivery Device Sodium (136-145) mmol/L Potassium (3.5-5.1) mmol/L Chloride (98-107) mmol/L Carbon Dioxide (21-32) mmol/L Anion Gap (7-13) mEq/L BUN (7-18) mg/dL Creatinine 1.45 H (0.55-1.02) mg/dL Est Cr Clr Drug Dosing 33.34 Estimated GFR (MDRD) 38 BUN/Creatinine Ratio (No establ ref range) Glucose (70-99) mg/dL Lactic Acid (0.4-2.0) mmol/L Calcium (8.5-10.1) mg/dL Magnesium (1.8-2.4) mg/dL Total Bilirubin 0.4 (0.2-1.0) mg/dL Direct Bilirubin 0.2 (0.0-0.2) mg/dL Indirect Bilirubin 0.2 AST 30 (15-37) U/L ALT 93 H (14-59) U/L Alkaline Phosphatase 64 (46-116) U/L C-Reactive Protein (0.0-0.9) mg/dL Total Protein 6.3 L (6.4-8.2) g/dL Albumin 2.5 L (3.4-5.0) g/dL Globulin 3.8 Albumin/Globulin Ratio 0.66 Result Diagrams: 04/20/21 15:22 04/21/21 07:45 Conner Results Last 24 hrs: Microbiology 04/20/21 20:55 Gram Stain - Final Sputum - Expectorated Sepsis Event Note - Evaluation Sepsis Screening Result: Severe Sepsis Risk - Focused Exam Vital Signs: Vital Signs Temp Pulse Resp BP Pulse Ox 04/21/21 08:00 97.2 F 71 18 119/76 95 04/21/21 04:00 97.2 F 65 19 119/71 96 04/21/21 00:00 97.7 F 64 21 H 126/76 97 - Problem List & Annotations (1) Sepsis SNOMED Code(s): 35417203 Code(s): A41.9 - SEPSIS, UNSPECIFIED ORGANISM Status: Acute Current Visit: Yes (2) Pneumonia due to COVID-19 virus SNOMED Code(s): 225479607344995081 Code(s): U07.1 - COVID-19; J12.82 - PNEUMONIA DUE TO CORONAVIRUS DISEASE 2019 Status: Acute Current Visit: Yes (3) COVID SNOMED Code(s): 880990285 Code(s): U07.1 - COVID-19 Status: Acute Current Visit: No (4) Lactic acidosis SNOMED Code(s): 04961435 Code(s): E87.2 - ACIDOSIS Status: Acute Current Visit: No - Problem List Review Problem List Initiated/Reviewed/Updated: Yes - My Orders Last 24 Hours: My Active Orders 04/20/21 17:17 LORazepam [Ativan] 1 mg PO Q6H PRN 04/20/21 17:23 oxyCODONE 5 mg PO Q4H PRN 04/20/21 17:30 Heparin Sodium/0.45% NaCl [Heparin 25,000 Units in 1/2 NS 500 ML] 25,000 units in 500 ml IV TITRATE Pharmacy to Dose - Vancomycin 1 dose .XX ASDIRECTED dexAMETHasone [Decadron] 6 mg IVPUSH DAILY 04/20/21 17:37 Oxygen Therapy [RC] PRN Up With Assistance [RC] ASDIRECTED VTE/DVT Education [RC] 08,20 Vital Signs [RC] 20,00,04,08,12,16 Temazepam [Restoril] 15 mg PO BEDTIME PRN Antiembolic Hose [OM.PC] Per Unit Routine Resuscitation Status Routine 04/20/21 17:38 Antiembolic Devices [RC] 08,20 11/14/21 18:00 Vancomycin 1 gm Sodium Chloride 0.9% [Normal Saline AdvBag] 250 ml IV Q48H 04/20/21 20:55 CULTURE SPUTUM + SMEAR [RM] Routine 04/20/21 21:00 Gabapentin [Neurontin] 400 mg PO BEDTIME Mometasone/Formoterol [Dulera 200-5 MCG] 2 puff IH BID mycophenolate mofetiL [Cellcept] 1,000 mg PO BIDAC 04/21/21 02:30 PROCALCITONIN [REF] AM 04/21/21 06:00 Meropenem [Merrem] 1 gm Sodium Chloride 0.9% [Normal Saline AdvBag] 100 ml IV Q12H Omeprazole 40 mg PO ACBREAKFAST 04/21/21 08:00 Multivitamins/Minerals [Vitamins and Minerals] 1 tab PO WITHBREAKFAST 04/21/21 09:00 Aspirin [Ecotrin] 325 mg PO DAILY Cholecalciferol (Vitamin D3) [Vitamin D3] 25 mcg PO DAILY Montelukast [Singulair] 10 mg PO DAILY 04/22/21 05:11 BASIC METABOLIC PANEL,BMP [CHEM] AM CBC WITH AUTO DIFF [HEME] AM DD [D-DIMER QUANTITATIVE] [COAG] AM HEPATIC FUNCTION PANEL,HFP [CHEM] AM PROCALCITONIN [REF] AM 04/23/21 05:11 BASIC METABOLIC PANEL,BMP [CHEM] AM CBC WITH AUTO DIFF [HEME] AM DD [D-DIMER QUANTITATIVE] [COAG] AM HEPATIC FUNCTION PANEL,HFP [CHEM] AM PROCALCITONIN [REF] AM 04/24/21 05:11 BASIC METABOLIC PANEL,BMP [CHEM] AM CBC WITH AUTO DIFF [HEME] AM DD [D-DIMER QUANTITATIVE] [COAG] AM HEPATIC FUNCTION PANEL,HFP [CHEM] AM PROCALCITONIN [REF] AM 04/25/21 05:11 BASIC METABOLIC PANEL,BMP [CHEM] AM CBC WITH AUTO DIFF [HEME] AM DD [D-DIMER QUANTITATIVE] [COAG] AM HEPATIC FUNCTION PANEL,HFP [CHEM] AM PROCALCITONIN [REF] AM 04/26/21 05:11 BASIC METABOLIC PANEL,BMP [CHEM] AM CBC WITH AUTO DIFF [HEME] AM DD [D-DIMER QUANTITATIVE] [COAG] AM HEPATIC FUNCTION PANEL,HFP [CHEM] AM PROCALCITONIN [REF] AM 04/27/21 05:11 BASIC METABOLIC PANEL,BMP [CHEM] AM CBC WITH AUTO DIFF [HEME] AM 04/28/21 17:30 VANCOMYCIN TROUGH [CHEM] Timed - Plan Plan:: immunocompromised with h/o leukocytoclastic vasculitis, chronic prednisone use Received covid booster () apr 02 Tested negative for covid on 04/07 Developed n/diarrhea, fever, body aches, sob, ear syncope - started 04/08 came to er on 04/12/21 tested positive for covid discharged home symptoms did not improve presented with profound weakness, 2 syncopal episode on 04/16 admitted on 04/16, discharged on 04/18 on 2 l/min nc oxygen since discharge she was becoming more sob and oxygen sats were low at home Acute covid 19 pneumonia in immunocompromised patient As seen on ct 04/16/21 Vaccination status: vaccinated Symptom onset: about 04/08/21 Covid test positive: 04/12/21 Treat with dexamethasone During the last admission we started but stopped remdesivir given increase in as t, alt - hold off now Treat with mvi /vit d acute hypoxemic respiratory failure severe - requiring bipap will taper as possible Evaluations for concurrent bacterial pneumonia: Procalcitonin: elevated 04/18/21 leukocytosis noted cxr: bilateral patchy infiltrates blood culture: pending obtain sputum cx started levofloxacin during last admission now cont on meropenem, vanc, Evaluations for thrombotic complications Ddimer: increased Has significant hypoxemia Concern for PE Will hold off on CT with contrast re: CKD LE us: no dvt Prophylaxis: treat empirically with heparin full dose wght based nomogram recheck ddimer in AM Sepsis No severe sepsis Due to viral infection , possibly due to Bacterial pneumonia Will hold off on IVFs Treat possible bacterial infection Supportive tx. 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
--- NOTE | 2021-04-21 16:59 | PCM.SN.2 ---
- Free Text/Narrative Note: PICC Line Dr Charlton requesting PICC line placement. Dr Charlton informed of the need to use the current IV in the L AC for introduction of catheter due to poor vascular access for this Pt. agrees and wishes to proceed. Discussed with Pt regarding risks and benefits. Pt consents to procedure. Sterile prep with Chloraprep, site draped, Prior access site of 20 ga IV in Left AC infilrated with 1% lidocaine. Guide wire advanced through 20 ga catheter with difficulty to 15 cm, catheter removed, dilator placed over guide wire after small bryan with scalpel. attempted to thread double lumen 5 Fr [place] double lumen catheter through dilator. Unable to advance beyond 10 cm after multiple attempts and repositioning. Double lumen catheter removed and 20 ga cannula placed through dilator. Dilator removed and pressure dressing and tegaderm placed over insertion site. Cannula flushes easily and aspirates blood easily. Pt tolerated procedure well and Dr Charlton informed of outcome. Procedure time 1545 to 1700
[2021-04-21] MEDS: Enoxaparin 80 MG/0.8 ML Syringe SUBCUT SCH ×2 (17:15→22:34)
[2021-04-21] MEDS: Gabapentin 400 MG Cap PO SCH (21:05)
[2021-04-21] MEDS: guaiFENesin 100 MG/5 ML Soln 5 ML UD Cup PO PRN (21:05)
[2021-04-21] MEDS: Temazepam 15 MG Cap PO PRN (21:05)
[2021-04-22] MEDS: guaiFENesin 100 MG/5 ML Soln 5 ML UD Cup PO PRN (04:47)
[2021-04-22] MEDS: Mycophenolate Mofetil 250 MG Cap PO SCH (06:37)
[2021-04-22] MEDS: Omeprazole 20 MG Cap.CR PO SCH (06:37)
[2021-04-22 07:13] LABS: ANION GAP 18.7 mEq/L (7-13)
[2021-04-22] MEDS ORDERED: Dexamethasone 6 MG TABLET PO SCH (08:00)
[2021-04-22] MEDS ORDERED: Levofloxacin 500 MG Tab PO ONE (08:30)
[2021-04-22] MEDS: Aspirin 325 MG Tab.EC PO SCH (09:25)
[2021-04-22] MEDS: Multivitamins, Therapeutic with Minerals Tab PO SCH (09:25)
[2021-04-22] MEDS: Cholecalciferol (Vitamin D3) 25 MCG Tab PO SCH (09:25)
[2021-04-22] MEDS: Montelukast 10 MG Tab PO SCH (09:25)
[2021-04-22] MEDS: Formoterol/Mometasone 200-5 MCG 8.8 GM Inhaler IH SCH (09:26)
[2021-04-22] MEDS: Enoxaparin 80 MG/0.8 ML Syringe SUBCUT SCH (09:26)
--- NOTE | 2021-04-22 10:49 | PCM.DCSUM1 ---
Discharge Summary - Hospital Course Free Text/Narrative:: immunocompromised with h/o leukocytoclastic vasculitis, chronic prednisone use Received covid booster (3rd) apr 02 Tested negative for covid on 04/07 Developed n/diarrhea, fever, body aches, sob, ear syncope - started 04/08 came to er on 04/12/21 tested positive for covid discharged home symptoms did not improve presented with profound weakness, 2 syncopal episode on 04/16 admitted on 04/16, discharged on 04/18 on 2 l/min nc oxygen, levofloxacin, dexamethasone after discharge she was becoming more sob and oxygen sats were low at home came to er and readmitted 04/20 Acute covid 19 pneumonia in immunocompromised patient As seen on ct 04/16/21 Vaccination status: vaccinated ( 3 doses) Symptom onset: about 04/08/21 Covid test positive: 04/12/21 Treat with dexamethasone During the last admission we started but stopped remdesivir given increase in ast, alt - hold off now Treat with mvi /vit d acute hypoxemic respiratory failure severe - requiring bipap on 100% FiO2 but sats are mid 90s will taper as possible Evaluations for concurrent bacterial pneumonia: Procalcitonin: elevated 04/18/21 leukocytosis noted cxr: bilateral patchy infiltrates blood culture: pending sputum cx: pending Procalcitonin >100 last admission, 16 yesterday (high risk for sepsis >2) started levofloxacin during last admission started on meropenem, vanc, lost IV access last meropenem, vanc on PM of 04/21 given PO levofloxacin 750 mg on 16 am Evaluations for thrombotic complications Ddimer: increased Has significant hypoxemia Concern for PE Will hold off on CT with contrast re: CKD LE us: no dvt Prophylaxis: treat empirically with 1 mg/kg lovenox JOVANY on admission cr. 17. improved to 1.4 follow Sepsis No severe sepsis Due to viral infection , possibly due to Bacterial pneumonia Will hold off on IVFs Treat possible bacterial infection Supportive tx. Hyponatremia Mld follow h/o leukocytoclastic vasculitis/cellulitis on chronic prednisone 4 mg qod will treat with dexamethasone cont mycophenolate Diagnosis: Stroke: No - Discharge Data Discharge Date: 04/22/21 Discharge Disposition: DC/Tfer to Acute Hospital 02 Condition: Fair - Referral to Home Health Primary Care Physician: PCP None - Discharge Diagnosis/Problem(s) (1) Sepsis SNOMED Code(s): 88066733 ICD Code: A41.9 - SEPSIS, UNSPECIFIED ORGANISM Status: Acute Current Visit: Yes (2) Pneumonia due to COVID-19 virus SNOMED Code(s): 369262519469459629 ICD Code: U07.1 - COVID-19; J12.82 - PNEUMONIA DUE TO CORONAVIRUS DISEASE 2018 Status: Acute Current Visit: Yes (3) COVID SNOMED Code(s): 844952864 ICD Code: U07.1 - COVID-19 Status: Acute Current Visit: No (4) Lactic acidosis SNOMED Code(s): 02651286 ICD Code: E87.2 - ACIDOSIS Status: Acute Current Visit: No - Patient Instructions Diet: Heart Healthy Diet Activity: As Tolerated - Discharge Plan *PRESCRIPTION DRUG MONITORING PROGRAM REVIEWED*: Not Applicable *COPY OF PRESCRIPTION DRUG MONITORING REPORT IN PATIENT SAVANNA: Not Applicable Home Medications: Home Meds Fluticasone Propionate [Flonase] 1 spray NASBOTH DAILY PRN 12/03/17 [History] Omeprazole [Prilosec] 40 mg PO DAILY 12/03/17 [History] Gabapentin [Neurontin] 400 mg PO BEDTIME 04/12/21 [History] Fluticasone Propion/Salmeterol [Advair 250-50 Diskus] 1 puff INH BID 04/16/21 [History] Montelukast [Singulair] 10 mg PO DAILY 04/16/21 [History] Rosuvastatin [Crestor] 20 mg PO BEDTIME 04/16/21 [History] mycophenolate mofetiL [Mycophenolate Mofetil] 1,000 mg PO BID 04/16/21 [History] Aspirin [Halfprin] 325 mg PO DAILY #14 tab.ec 04/18/21 [Rx] Cholecalciferol (Vitamin D3) [Vitamin D3] 25 mcg PO DAILY #14 tablet 04/18/21 [Rx] Multivitamins/Minerals [Vitamins and Minerals] 1 tab PO WITHBREAKFAST tablet 04/18/21 [Rx] dexAMETHasone [Dexamethasone] 6 mg PO DAILY #7 tab 04/18/21 [Rx] oxyCODONE 5 mg PO Q4H PRN #12 tablet 04/18/21 [Rx] Enoxaparin [Lovenox] 80 mg SUBCUT Q12HR syringe 04/22/21 [Rx] Meropenem [Merrem] 1 gm IV Q12H sdv 04/22/21 [Rx] Vancomycin 1 gm IV Q24H sdv 04/22/21 [Rx] Oxygen Therapy Mode: BiPAP FiO2: 100 - Discharge Summary/Plan Comment DC Time >30 min.: Yes Total # of Minutes for Discharge Time: 40 min. arranging transfer, discussing with Juno Hoover - General Info Date of Service: 04/22/21 Functional Status: Denies: Tolerating Diet (sob when off bipap) - Review of Systems Pulmonary: Reports: Shortness of Breath, Cough Cardiovascular: Denies: Chest Pain, Edema Genitourinary: Denies: Dysuria Neurological: Denies: Confusion - Patient Data Vitals - Most Recent: Last Vital Signs Temp 96.0 F L 04/22/21 07:40 Pulse 78 04/22/21 07:40 Resp 24 H 04/22/21 07:40 BP 105/65 04/22/21 07:40 Pulse Ox 96 04/22/21 07:40 Weight - Most Recent: 141 lb 8.588 oz I&O - Last 24 hours: Intake & Output 04/21/21 04/22/21 04/22/21 22:59 06:59 14:59 Intake Total 120 120 Balance 120 120 Lab Results - Last 24 hrs: Laboratory Results - last 24 hr 04/21/21 04/22/21 04/22/21 Range/Units 02:30 06:39 06:39 WBC 26.8 H* (5.0-10.0) 10^3/uL RBC 3.75 L (4.2-5.4) 10^6/uL Hgb 11.0 L (12.0-16.0) g/dL Hct 33.7 L (37.0-47.0) % MCV 89.9 (80-100) fL MCH 29.3 (27.0-34.0) pg MCHC 32.6 L (33.0-35.0) g/dL Plt Count 527 H (150-450) 10^3/uL Neut % (Auto) 89.6 H (42.2-75.2) % Lymph % (Auto) 3.3 L (20.5-50.1) % Oliver % (Auto) 7.0 (2-8) % Eos % (Auto) 0.0 L (1.0-3.0) % Baso % (Auto) 0.1 (0.0-1.0) % Add Manual Diff Yes Neutrophils % (Manual) 68 (42-75) % Band Neutrophils % 12 % Lymphocytes % (Manual) 7 L (20-50) % Monocytes % (Manual) 3 (2-8) % Metamyelocytes % 10 Nucleated RBCs 1 /100WBC Platelet Estimate Increased D-Dimer, Quantitative 1460 H (0-400) ng/mL Sodium (136-145) mmol/L Potassium (3.5-5.1) mmol/L Chloride (98-107) mmol/L Carbon Dioxide (21-32) mmol/L Anion Gap (7-13) mEq/L BUN (7-18) mg/dL Creatinine (0.55-1.02) mg/dL Est Cr Clr Drug Dosing mL/min Estimated GFR (MDRD) Glucose (70-99) mg/dL Calcium (8.5-10.1) mg/dL Total Bilirubin (0.2-1.0) mg/dL Direct Bilirubin (0.0-0.2) mg/dL Indirect Bilirubin AST (15-37) U/L ALT (14-59) U/L Alkaline Phosphatase (46-116) U/L B-Natriuretic Peptide (0-100) pg/ml Total Protein (6.4-8.2) g/dL Albumin (3.4-5.0) g/dL Globulin Albumin/Globulin Ratio Procalcitonin 16.73 H ng/mL 04/22/21 Range/Units 06:39 WBC (5.0-10.0) 10^3/uL RBC (4.2-5.4) 10^6/uL Hgb (12.0-16.0) g/dL Hct (37.0-47.0) % MCV (80-100) fL MCH (27.0-34.0) pg MCHC (33.0-35.0) g/dL Plt Count (150-450) 10^3/uL Neut % (Auto) (42.2-75.2) % Lymph % (Auto) (20.5-50.1) % Oliver % (Auto) (2-8) % Eos % (Auto) (1.0-3.0) % Baso % (Auto) (0.0-1.0) % Add Manual Diff Neutrophils % (Manual) (42-75) % Band Neutrophils % % Lymphocytes % (Manual) (20-50) % Monocytes % (Manual) (2-8) % Metamyelocytes % Nucleated RBCs /100WBC Platelet Estimate D-Dimer, Quantitative (0-400) ng/mL Sodium 133 L (136-145) mmol/L Potassium 4.7 (3.5-5.1) mmol/L Chloride 97 L (98-107) mmol/L Carbon Dioxide 22 (21-32) mmol/L Anion Gap 18.7 H (7-13) mEq/L BUN 28 H (7-18) mg/dL Creatinine 1.38 H (0.55-1.02) mg/dL Est Cr Clr Drug Dosing 35.03 mL/min Estimated GFR (MDRD) 40 Glucose 204 H (70-99) mg/dL Calcium 9.0 (8.5-10.1) mg/dL Total Bilirubin 0.5 (0.2-1.0) mg/dL Direct Bilirubin 0.2 (0.0-0.2) mg/dL Indirect Bilirubin 0.3 AST 28 (15-37) U/L ALT 84 H (14-59) U/L Alkaline Phosphatase 66 (46-116) U/L B-Natriuretic Peptide 90 (0-100) pg/ml Total Protein 6.7 (6.4-8.2) g/dL Albumin 2.6 L (3.4-5.0) g/dL Globulin 4.1 Albumin/Globulin Ratio 0.63 Procalcitonin ng/mL RYAN Results - Last 24 hrs: Microbiology 04/20/21 20:55 Gram Stain - Final Sputum - Expectorated Sputum Culture - Preliminary NORMAL RESPIRATORY VIET 1 DAY 04/20/21 15:18 Aerobic Blood Culture - Preliminary Blood - Arm, Right NO GROWTH AFTER 1 DAY Anaerobic Blood Culture - Preliminary NO GROWTH AFTER 1 DAY 04/20/21 15:22 Aerobic Blood Culture - Preliminary Blood - Arm, Left NO GROWTH AFTER 1 DAY Anaerobic Blood Culture - Preliminary NO GROWTH AFTER 1 DAY Med Orders - Current: Current Medications Aspirin (Aspirin 325 Mg Tab.Ec) 325 mg PO DAILY DEONTE Last Admin: 04/22/21 09:25 Dose: 325 mg Documented by: Cholecalciferol (Cholecalciferol (Vitamin D3) 25 Mcg Tab) 25 mcg PO DAILY [facility] Last Admin: 04/22/21 09:25 Dose: 25 mcg Documented by: Dexamethasone (Dexamethasone 6 Mg Tablet) 6 mg PO DAILY@0800 [facility] Last Admin: 04/22/21 09:25 Dose: 6 mg Documented by: Enoxaparin Sodium (Enoxaparin 80 Mg/0.8 Ml Syringe) 80 mg SUBCUT Q12HR [facility] Last Admin: 04/22/21 09:26 Dose: 80 mg Documented by: Gabapentin (Gabapentin 400 Mg Cap) 400 mg PO BEDTIME [facility] Last Admin: 04/21/21 21:05 Dose: 400 mg Documented by: Guaifenesin (Guaifenesin 100 Mg/5 Ml Soln 5 Ml Ud Cup) 100 mg PO Q6H PRN PRN Reason: Cough Last Admin: 04/22/21 04:47 Dose: 100 mg Documented by: Meropenem 1 gm/ Sodium (Chloride) 100 mls @ 200 mls/hr IV Q12H [facility] Last Infusion: 04/21/21 17:50 Dose: Infused Documented by: Vancomycin HCl 1 gm/ Sodium (Chloride) 250 mls @ 250 mls/hr IV Q24H [facility] Last Admin: 04/21/21 13:05 Dose: 250 mls/hr Documented by: Lorazepam (Lorazepam 1 Mg Tab) 1 mg PO Q6H PRN PRN Reason: Anxiety Mometasone Furoate/Formoterol Fumar (Formoterol/Mometasone 200-5 Mcg 8.8 Gm Inhaler) 2 puff IH BID [facility] Last Admin: 04/22/21 09:26 Dose: 2 puff Documented by: Montelukast Sodium (Montelukast 10 Mg Tab) 10 mg PO DAILY [facility] Last Admin: 04/22/21 09:25 Dose: 10 mg Documented by: Multivitamins/Minerals (Multivitamins, Therapeutic With Minerals Tab) 1 tab PO WITHBREAKFAST [facility] Last Admin: 04/22/21 09:25 Dose: 1 tab Documented by: Mycophenolate Mofetil (Mycophenolate Mofetil 250 Mg Cap) 1,000 mg PO BIDAC [facility] Last Admin: 04/22/21 06:37 Dose: 1,000 mg Documented by: Omeprazole (Omeprazole 20 Mg Cap.Cr) 40 mg PO ACBREAKFAST [facility] Last Admin: 04/22/21 06:37 Dose: 40 mg Documented by: Oxycodone HCl (Oxycodone 5 Mg Tab) 5 mg PO Q4H PRN PRN Reason: Pain (moderate 4-6) Last Admin: 04/21/21 06:34 Dose: 5 mg Documented by: Sodium Chloride (Sodium Chloride 0.9% 10 Ml Syringe) 10 ml FLUSH ASDIRECTED PRN PRN Reason: Keep Vein Open Last Admin: 04/20/21 15:18 Dose: 10 ml Documented by: Temazepam (Temazepam 15 Mg Cap) 15 mg PO BEDTIME PRN PRN Reason: Sleep Last Admin: 04/21/21 21:05 Dose: 15 mg Documented by: Vancomycin HCl (Pharmacy To Dose - Vancomycin) 1 dose .XX ASDIRECTED DEONTE Discontinued Medications Albuterol/Ipratropium (Albuterol/Ipratropium 3.0-0.5 Mg/3 Ml Neb Soln) 6 ml NEB ONETIME ONE Stop: 04/20/21 15:24 Last Admin: 04/20/21 15:00 Dose: 6 ml Documented by: Dexamethasone (Dexamethasone 4 Mg/Ml Sdv) 6 mg IVPUSH DAILY DEONTE Last Admin: 04/21/21 09:15 Dose: 6 mg Documented by: Heparin Sodium (Porcine) (Heparin Sodium 5,000 Units/Ml Vial) 5,000 units IVPUSH .BOLUS ONE Stop: 04/20/21 17:20 Last Admin: 04/20/21 18:48 Dose: 5,000 units Documented by: Sodium Chloride (Normal Saline) 1,000 mls @ 999 mls/hr IV .BOLUS ONE Stop: 04/20/21 16:33 Last Admin: 04/20/21 18:47 Dose: 999 mls/hr Documented by: Piperacillin Sod/Tazobactam (Sod 3.375 gm/ Sodium Chloride) 100 mls @ 200 mls/hr IV ONETIME ONE Stop: 04/20/21 16:49 Last Admin: 04/21/21 11:40 Dose: Not Given Documented by: Meropenem 1 gm/ Sodium (Chloride) 100 mls @ 200 mls/hr IV ONETIME ONE Stop: 04/20/21 16:53 Last Admin: 04/20/21 18:10 Dose: Not Given Documented by: Meropenem 1 gm/ Sodium (Chloride) 100 mls @ 200 mls/hr IV Q8HR DEONTE Last Admin: 04/20/21 18:47 Dose: 200 mls/hr Documented by: Heparin Sodium/Sodium Chloride (Heparin 25,000 Units In 1/2 Ns 500 Ml) 25,000 units in 500 mls @ 23.112 mls/hr IV TITRATE DEONTE; Protocol Last Titration: 04/21/21 03:37 Dose: 16 units/kg/hr, 20.544 mls/hr Documented by: Vancomycin HCl 1 gm/ Sodium (Chloride) 250 mls @ 250 mls/hr IV Q48H DEONTE Last Admin: 04/20/21 19:32 Dose: 250 mls/hr Documented by: Levofloxacin (Levofloxacin 500 Mg Tab) 750 mg PO ONETIME ONE Stop: 04/22/21 08:31 Last Admin: 04/22/21 09:25 Dose: 750 mg Documented by: - Exam General: Reports: Alert, Oriented Lungs: Reports: Decreased Breath Sounds, Rhonchi Cardiovascular: Reports: Regular Rate, Regular Rhythm GI/Abdominal Exam: Normal Bowel Sounds, Soft, Non-Tender Extremities: No Pedal Edema Neurological: Reports: No New Focal Deficit Psy/Mental Status: Reports: Alert, Normal Affect, Normal Mood
[2021-04-22 14:41] VITALS: BP 114/77; PULSE 79
== END 2021-04-22 14:00 | DRG 720 ==
LOC: DL.ED 15:20 → DL.MS 16:13
PROVIDERS: ADMIT Internal Medicine; ATTEND Internal Medicine
PROC: 3E0333Z Introduction of Anti-inflammatory into Peripheral Vein, Percutaneous Approach (ICD-10-PCS; 2021-04-20)
PROC: 5A09457 Assistance with Respiratory Ventilation, 24-96 Consecutive Hours, Continuous Positive Airway Pressure (ICD-10-PCS; 2021-04-20)
PROC: 02HV33Z Insertion of Infusion Device into Superior Vena Cava, Percutaneous Approach (ICD-10-PCS; 2021-04-21)
PROC: 3E0DX3Z Introduction of Anti-inflammatory into Mouth and Pharynx, External Approach (ICD-10-PCS; principal; 2021-04-22)
DX: A41.89 Other specified sepsis (principal); U07.1 COVID-19; J12.82 Pneumonia due to coronavirus disease 2019; D84.9 Immunodeficiency, unspecified; J96.01 Acute respiratory failure with hypoxia; J15.9 Unspecified bacterial pneumonia; N18.9 Chronic kidney disease, unspecified; N17.9 Acute kidney failure, unspecified; E87.1 Hypo-osmolality and hyponatremia; E87.2 Acidosis; Z79.899 Other long term (current) drug therapy; Z79.52 Long term (current) use of systemic steroids; Z79.82 Long term (current) use of aspirin; Z98.49 Cataract extraction status, unspecified eye; Z90.89 Acquired absence of other organs; Z94.7 Corneal transplant status; E78.00 Pure hypercholesterolemia, unspecified; K21.9 Gastro-esophageal reflux disease without esophagitis; M32.9 Systemic lupus erythematosus, unspecified; D50.9 Iron deficiency anemia, unspecified; Z88.1 Allergy status to other antibiotic agents; Z88.0 Allergy status to penicillin
CPT/HCPCS: 36410; 36415; 36569; 36600; 71045; 80048; 80053; 80076; 82565; 82803; 83605; 83735; 83880; 84145; 85025; 85379; 85730; 86140; 87040; 87070; 87205; 93005; 93970; 99223; 99233; 99239; 99285-25; A9270-GY; J1100; J1644; J1650; J2185; J3370; J7030; J7050; J7620-GY; J8540

== ENCOUNTER 2022-01-20 09:04 | Inpatient (IN) | payer BC ==
[2022-01-20] MEDS ORDERED: Lactated Ringers 500 ML IV ONE (09:54)
[2022-01-20] MEDS ORDERED: Ondansetron 4 MG/2 ML SDV IVPUSH ONE ×2 (09:54→17:08)
[2022-01-20 10:19] LABS: ANION GAP 19.3 mEq/L (7-13)
[2022-01-20 10:39] LABS: CORONAVIRUS COVID-19 NAA NEGATIVE (NEGATIVE)
[2022-01-20] MEDS ORDERED: Magnesium Sulfate/Water 2 GM in Premix Bag 1 BAG IV ONE (10:46)
[2022-01-20] MEDS ORDERED: Metoclopramide 10 MG/2 ML SDV IVPUSH ONE (10:46)
[2022-01-20] MEDS ORDERED: Sodium Chloride 0.9% 1,000 ML IV ONE (11:09)
[2022-01-20] MEDS ORDERED: Meropenem 1 GM in Sodium Chloride 0.9% 100 ML IV ONE (12:30)
[2022-01-20] MEDS ORDERED: Ketorolac 30 MG/ML SDV IVPUSH PRN (19:55)
[2022-01-20] MEDS ORDERED: Albuterol/Ipratropium 3.0-0.5 MG/3 ML Neb Soln NEB PRN (19:55)
[2022-01-20] MEDS ORDERED: Ibuprofen 600 MG Tab PO PRN (19:55)
[2022-01-20] MEDS ORDERED: HYDROmorphone 0.5 MG/0.5 ML Syringe IVPUSH PRN (19:55)
[2022-01-20] MEDS ORDERED: Acetaminophen 325 MG Tab PO PRN (19:55)
[2022-01-20] MEDS ORDERED: Fluticasone NASAL Spray 16 GM Bottle NASBOTH PRN (19:59)
[2022-01-20] MEDS ORDERED: oxyCODONE 5 MG Tab PO PRN (19:59)
[2022-01-20] MEDS ORDERED: 50% Dextrose in Water 50 ML Syringe IVPUSH PRN (20:07)
[2022-01-20] MEDS ORDERED: Glucagon,Human Recombinant 1 MG Vial IM PRN (20:07)
[2022-01-20] MEDS ORDERED: Sodium Chloride 0.9% 1,000 ML IV SCH (20:15)
[2022-01-20] MEDS ORDERED: Sodium Chloride 0.9% 500 ML IV SCH (20:15)
[2022-01-20] MEDS ORDERED: Non-Formulary Medication 1 Each (Fluticasone Propion/Salmeterol 1 EACH Blst.W.Dev) INH SCH (21:00)
[2022-01-20] MEDS ORDERED: Enoxaparin 80 MG/0.8 ML Syringe SUBCUT SCH (21:00)
[2022-01-20] MEDS ORDERED: Gabapentin 400 MG Cap PO SCH (21:00)
[2022-01-20] MEDS ORDERED: Enoxaparin 40 MG/0.4 ML Syringe SUBCUT ONE (21:09)
[2022-01-20] MEDS: methylPREDNISolone Sodium Succinate 125 MG/2 ML SDV IVPUSH SCH (21:44)
[2022-01-20] MEDS: Rosuvastatin 10 MG Tab PO SCH (21:57)
[2022-01-20] MEDS: Formoterol/Mometasone 200-5 MCG 8.8 GM Inhaler IH SCH (21:58)
[2022-01-20] MEDS: Mycophenolate Mofetil 250 MG Cap PO SCH (21:59)
[2022-01-21] MEDS: methylPREDNISolone Sodium Succinate 125 MG/2 ML SDV IVPUSH SCH ×3 (04:56→20:19)
[2022-01-21] MEDS: Ondansetron 4 MG/2 ML SDV IVPUSH PRN ×2 (05:23→23:09)
[2022-01-21] MEDS ORDERED: Omeprazole 20 MG Cap.CR PO SCH (06:00)
[2022-01-21] MEDS ORDERED: Meropenem 1 GM SDV IV SCH (09:00)
[2022-01-21] MEDS ORDERED: Vancomycin 1 GM SDV IV SCH (09:00)
[2022-01-21] MEDS ORDERED: Enoxaparin 80 MG/0.8 ML Syringe SUBCUT SCH (09:00)
[2022-01-21] MEDS: Insulin Lispro 100 Units/ML 3 ML Vial SUBCUT SCH ×3 (09:50→17:32)
[2022-01-21] MEDS: Montelukast 10 MG Tab PO SCH (09:54)
[2022-01-21] MEDS: Cholecalciferol (Vitamin D3) 25 MCG Tab PO SCH (09:55)
[2022-01-21] MEDS: Aspirin 325 MG Tab.EC PO SCH (09:55)
[2022-01-21] MEDS: Mycophenolate Mofetil 250 MG Cap PO SCH (09:55)
[2022-01-21] MEDS: Multivitamin Tab PO SCH (09:55)
[2022-01-21] MEDS: Formoterol/Mometasone 200-5 MCG 8.8 GM Inhaler IH SCH ×2 (10:00→20:14)
[2022-01-21] MEDS: Meropenem 1 GM in Sodium Chloride 0.9% 100 ML IV SCH ×2 (10:01→20:22)
[2022-01-21] MEDS: Enoxaparin 30 MG/0.3 ML Syringe SUBCUT SCH (15:02)
[2022-01-21] MEDS: Sodium Bicarbonate 650 MG Tab PO SCH (20:14)
[2022-01-21] MEDS: Rosuvastatin 10 MG Tab PO SCH (20:14)
[2022-01-21] MEDS: Gabapentin 300 MG Cap PO SCH (20:14)
[2022-01-21] MEDS: Temazepam 15 MG Cap PO PRN (22:56)
[2022-01-22] MEDS: methylPREDNISolone Sodium Succinate 125 MG/2 ML SDV IVPUSH SCH ×3 (04:01→20:30)
[2022-01-22] MEDS: Omeprazole 20 MG Cap.CR PO SCH (05:57)
[2022-01-22 07:19] LABS: ANION GAP 15.3 mEq/L (7-13)
[2022-01-22] MEDS: Multivitamin Tab PO SCH (08:13)
[2022-01-22] MEDS: Insulin Lispro 100 Units/ML 3 ML Vial SUBCUT SCH ×3 (08:13→18:18)
[2022-01-22] MEDS: Meropenem 1 GM in Sodium Chloride 0.9% 100 ML IV SCH ×2 (10:07→20:34)
[2022-01-22] MEDS: Enoxaparin 30 MG/0.3 ML Syringe SUBCUT SCH (10:17)
[2022-01-22] MEDS: Gabapentin 300 MG Cap PO SCH ×2 (10:18→20:41)
[2022-01-22] MEDS: Mycophenolate Mofetil 250 MG Cap PO SCH (10:18)
[2022-01-22] MEDS: Sertraline 50 MG Tab PO SCH (10:19)
[2022-01-22] MEDS: Furosemide 40 MG Tab PO SCH (10:19)
[2022-01-22] MEDS: Aspirin 325 MG Tab.EC PO SCH (10:19)
[2022-01-22] MEDS: Cholecalciferol (Vitamin D3) 25 MCG Tab PO SCH (10:20)
[2022-01-22] MEDS: Sodium Bicarbonate 650 MG Tab PO SCH ×2 (10:21→20:41)
[2022-01-22] MEDS: Montelukast 10 MG Tab PO SCH (10:33)
[2022-01-22] MEDS: Formoterol/Mometasone 200-5 MCG 8.8 GM Inhaler IH SCH ×2 (10:36→20:30)
[2022-01-22] MEDS: Rosuvastatin 10 MG Tab PO SCH (20:30)
[2022-01-22] MEDS: Temazepam 15 MG Cap PO PRN (20:40)
[2022-01-23] MEDS: methylPREDNISolone Sodium Succinate 125 MG/2 ML SDV IVPUSH SCH (05:08)
[2022-01-23] MEDS: Omeprazole 20 MG Cap.CR PO SCH (05:17)
[2022-01-23 07:06] LABS: ANION GAP 13.1 mEq/L (7-13)
[2022-01-23 08:10] VITALS: BP 116/88; PULSE 90
[2022-01-23] MEDS: Insulin Lispro 100 Units/ML 3 ML Vial SUBCUT SCH ×2 (08:46→12:10)
[2022-01-23] MEDS: Montelukast 10 MG Tab PO SCH (08:48)
[2022-01-23] MEDS: Sertraline 50 MG Tab PO SCH (08:48)
[2022-01-23] MEDS: Aspirin 325 MG Tab.EC PO SCH (08:48)
[2022-01-23] MEDS: Cholecalciferol (Vitamin D3) 25 MCG Tab PO SCH (08:49)
[2022-01-23] MEDS: Multivitamin Tab PO SCH (08:49)
[2022-01-23] MEDS: Sodium Bicarbonate 650 MG Tab PO SCH (08:49)
[2022-01-23] MEDS: Furosemide 40 MG Tab PO SCH (08:49)
[2022-01-23] MEDS: Gabapentin 300 MG Cap PO SCH (08:49)
[2022-01-23] MEDS: Mycophenolate Mofetil 250 MG Cap PO SCH (08:50)
[2022-01-23] MEDS: Enoxaparin 30 MG/0.3 ML Syringe SUBCUT SCH (08:54)
[2022-01-23] MEDS: Formoterol/Mometasone 200-5 MCG 8.8 GM Inhaler IH SCH (08:55)
[2022-01-23] MEDS: Meropenem 1 GM in Sodium Chloride 0.9% 100 ML IV SCH (09:31)
== END 2022-01-23 11:40 | disposition home or self-care (01) | DRG 249 ==
LOC: DL.ED 09:04 → DL.MS 19:50
PROVIDERS: ADMIT Internal Medicine; ATTEND Internal Medicine
DX: K52.9 Noninfective gastroenteritis and colitis, unspecified (principal); N17.9 Acute kidney failure, unspecified; K52.82 Eosinophilic colitis; E86.0 Dehydration; E78.5 Hyperlipidemia, unspecified; E11.40 Type 2 diabetes mellitus with diabetic neuropathy, unspecified; J45.909 Unspecified asthma, uncomplicated; K21.9 Gastro-esophageal reflux disease without esophagitis; D50.9 Iron deficiency anemia, unspecified; E11.22 Type 2 diabetes mellitus with diabetic chronic kidney disease; I12.9 Hypertensive chronic kidney disease with stage 1 through stage 4 chronic kidney disease, or unspecified chronic kidney disease; N18.30 Chronic kidney disease, stage 3 unspecified; Z20.822 Contact with and (suspected) exposure to COVID-19; H91.93 Unspecified hearing loss, bilateral; D72.110 Idiopathic hypereosinophilic syndrome [IHES]; E11.65 Type 2 diabetes mellitus with hyperglycemia; R09.02 Hypoxemia; E83.42 Hypomagnesemia; Z79.899 Other long term (current) drug therapy; Z79.4 Long term (current) use of insulin; Z86.16 Personal history of COVID-19; Z87.19 Personal history of other diseases of the digestive system; Z88.0 Allergy status to penicillin
CPT/HCPCS: 0240U; 36415; 71045; 74176; 76705; 80048; 80053; 80202; 81001; 82947; 83605; 83735; 84145; 84484; 85025; 86140; 87040; A9270-GY; J1650; J1815-GY; J2185; J2405; J2765; J2930; J3370; J3475; J7030; J7040; J7050; J7120

== ENCOUNTER 2023-01-16 06:54 | Emergency (ER) | payer MEDICAID ==
[2023-01-16 07:25] VITALS: BP 133/56; PULSE 87
== END 2023-01-16 08:02 | disposition home or self-care (01) ==
LOC: DL.ED 06:54
DX: S92.355A Nondisplaced fracture of fifth metatarsal bone, left foot, initial encounter for closed fracture (principal); K21.9 Gastro-esophageal reflux disease without esophagitis; I10 Essential (primary) hypertension; Z86.16 Personal history of COVID-19; Z79.899 Other long term (current) drug therapy; W22.8XXA Striking against or struck by other objects, initial encounter
CPT/HCPCS: 29515; 73660-T4; 99282; 99283

== ENCOUNTER 2023-01-25 07:55 | Emergency (ER) | payer MEDICAID ==
[2023-01-25] MEDS ORDERED: Morphine 4 MG/ML Syringe IVPUSH ONE (08:08)
[2023-01-25] MEDS ORDERED: Sodium Chloride 0.9% 10 ML Syringe FLUSH PRN (08:08)
[2023-01-25] MEDS ORDERED: Iopamidol 612 MG/ML 100 ML Bottle IVPUSH ONE (08:09)
[2023-01-25] MEDS ORDERED: Lidocaine/Prilocaine 2.5-2.5% Crm 5 GM Tube TOP ONE (08:10)
[2023-01-25 08:23] VITALS: BP 122/83; PULSE 97
[2023-01-25] MEDS ORDERED: Ondansetron 4 MG/2 ML SDV IVPUSH ONE (08:23)
[2023-01-25 08:27] LABS: BASOPHILS PERCENT AUTO 0.5 % (0.0-1.0); EOSINOPHILS PERCENT AUTO 0.8 % (1.0-3.0); HEMATOCRIT 42.1 % (37.0-47.0); HEMOGLOBIN 13.6 g/dL (12.0-16.0); LYMPHOCYTES PERCENT AUTO 11.3 % (20.5-50.1); MEAN CORPUSCULAR HEMOGLOBIN 30.4 pg (27.0-34.0); MEAN CORPUSCULAR HGB CONC 32.3 g/dL (33.0-35.0); MEAN CORPUSCULAR VOLUME 94.2 fL (80-100); MONOCYTES PERCENT AUTO 8.3 % (2-8); NEUTROPHILS PERCENT AUTO 79.1 % (42.2-75.2); PLATELET COUNT,PLT 357 10^3/uL (150-450); RED BLOOD CELL COUNT 4.47 10^6/uL (4.2-5.4); WHITE BLOOD CELL COUNT,WBC 14.3 10^3/uL (5.0-10.0)
[2023-01-25 08:40] LABS: ANION GAP 24.7 mEq/L (7-13); CALCIUM 9.5 mg/dL (8.5-10.1); CREATININE 2.41 mg/dL (0.55-1.02); EST CRCL DRUG DOSING (CG) 19.61 mL/min; POTASSIUM,K 4.7 mmol/L (3.5-5.1)
[2023-01-25] MEDS ORDERED: Sodium Chloride 0.9% 500 ML IV SCH (09:00)
[2023-01-25] MEDS ORDERED: Clindamycin HCl 150 MG Cap PO ONE (09:22)
[2023-01-25] MEDS ORDERED: Cefuroxime 250 MG Tab PO ONE (09:23)
[2023-01-25] MEDS ORDERED: Lidocaine 1% 5 ML VIAL INJECT ONE (09:26)
[2023-01-25] MEDS ORDERED: Take Home: Acetaminophen/oxyCODONE 325-5 MG, 5 Tab Pack PO ONE (09:28)
== END 2023-01-25 10:01 | disposition home or self-care (01) ==
LOC: DL.ED 07:55
DX: J34.0 Abscess, furuncle and carbuncle of nose (principal); E78.00 Pure hypercholesterolemia, unspecified; I10 Essential (primary) hypertension; Z88.0 Allergy status to penicillin; Z88.1 Allergy status to other antibiotic agents; Z79.899 Other long term (current) drug therapy; Z86.16 Personal history of COVID-19
CPT/HCPCS: 10060; 36415; 70486; 80048; 85025; 96361; 96374; 96375; 99283-25; 99284; A9270-GY; J2270; J2405; J3490; J7040

== ENCOUNTER 2023-05-01 08:16 | Emergency (ER) | payer MEDICAID ==
[2023-05-01] MEDS ORDERED: Sodium Chloride 0.9% 10 ML Syringe FLUSH PRN (08:29)
[2023-05-01 08:54] LABS: BASOPHILS PERCENT AUTO 0.2 % (0.0-1.0); EOSINOPHILS PERCENT AUTO 0.2 % (1.0-3.0); HEMATOCRIT 38.9 % (37.0-47.0); HEMOGLOBIN 12.3 g/dL (12.0-16.0); LYMPHOCYTES PERCENT AUTO 4.6 % (20.5-50.1); MEAN CORPUSCULAR HGB CONC 31.6 g/dL (33.0-35.0); MEAN CORPUSCULAR VOLUME 94.9 fL (80-100); PLATELET COUNT,PLT 298 10^3/uL (150-450); WHITE BLOOD CELL COUNT,WBC 20.8 10^3/uL (5.0-10.0)
[2023-05-01 09:11] LABS: ANION GAP 15.5 mEq/L (7-13); BILIRUBIN TOTAL 0.4 mg/dL (0.2-1.0); C-REACTIVE PROTEIN 13.67 ng/dL (<=0.50); CALCIUM 8.6 mg/dL (8.5-10.1); CREATININE 2.45 mg/dL (0.55-1.02); EST CRCL DRUG DOSING (CG) 20.27 mL/min; POTASSIUM,K 5.5 mmol/L (3.5-5.1); PROTEIN TOTAL,TP 8.2 g/dL (6.4-8.2)
[2023-05-01 09:14] LABS: LACTIC ACID 1.7 mmol/L (0.4-2.0)
[2023-05-01] MEDS ORDERED: Sodium Chloride 0.9% 1,000 ML IV ONE (09:15)
[2023-05-01 09:22] LABS: A/G RATIO 0.58
[2023-05-01 09:30] LABS: CORONAVIRUS COVID-19 NAA NEGATIVE (NEGATIVE); INFLUENZA A NAA NEGATIVE (NEGATIVE); INFLUENZA B NAA NEGATIVE (NEGATIVE); RESPIRATORY SYNCYTIAL VIR NAA NEGATIVE (NEGATIVE)
[2023-05-01 09:42] LABS: APPEARANCE,URINE CLEAR (CLEAR); BILIRUBIN,URINE NEGATIVE (NEGATIVE); COLOR,URINE YELLOW (YELLOW); GLUCOSE,URINE NEGATIVE (NEGATIVE); KETONES,URINE NEGATIVE (NEGATIVE); LEUKOCYTE ESTERASE,URINE TRACE (NEGATIVE); NITRITE,URINE NEGATIVE (NEGATIVE); OCCULT BLOOD,URINE NEGATIVE (NEGATIVE); PH,URINE 8.5 (5.0-9.0); PROTEIN,URINE 100 (NEGATIVE); UROBILINOGEN,URINE 0.2 mg/dL (0.2-1.0)
[2023-05-01 09:43] LABS: AMPHETAMINES,URINE NEGATIVE (NEGATIVE); BARBITURATES,URINE NEGATIVE (NEGATIVE); BENZODIAZEPINE,URINE NEGATIVE (NEGATIVE); MDMA (ECSTASY), URINE NEGATIVE (NEGATIVE); METHADONE,URINE NEGATIVE (NEGATIVE); METHAMPHETAMINES,URINE NEGATIVE (NEGATIVE); OPIATES,URINE NEGATIVE (NEGATIVE); OXYCODONE,URINE NEGATIVE (NEGATIVE); PHENCYCLIDINE,URINE NEGATIVE (NEGATIVE); TCA,URINE NEGATIVE (NEGATIVE)
[2023-05-01 09:50] LABS: AMORPHOUS SEDIMENT,URINE FEW /HPF (NOT SEEN); BACTERIA,URINE FEW /HPF (0-FEW/HPF); EPITHELIAL CELLS,URINE FEW /HPF (NOT SEEN); MUCUS,URINE FEW /LPF (NOT SEEN); RBC,URINE 0-5 /HPF (0-5); WBC,URINE 0-5 /HPF (0-5/HPF)
[2023-05-01] MEDS ORDERED: Levofloxacin/Dextrose 5%-Water 750 MG in Premix Bag 1 BAG IV ONE (10:36)
[2023-05-01] MEDS ORDERED: Metoclopramide 10 MG/2 ML SDV IVPUSH ONE (11:52)
[2023-05-01 12:39] VITALS: BP 136/88; PULSE 115
== END 2023-05-01 12:43 | disposition home or self-care (01) ==
LOC: DL.ED 08:16
DX: J18.9 Pneumonia, unspecified organism (principal); I10 Essential (primary) hypertension; K21.9 Gastro-esophageal reflux disease without esophagitis; Z20.822 Contact with and (suspected) exposure to COVID-19; Z86.16 Personal history of COVID-19; Z79.899 Other long term (current) drug therapy; Z88.0 Allergy status to penicillin; Z88.1 Allergy status to other antibiotic agents
CPT/HCPCS: 0241U; 36415; 71045; 80053; 80305-QW; 81001; 83605; 83880; 85025; 86140; 87040; 87086; 99284; 99285; J1956; J2765; J3490; J7030

== ENCOUNTER 2023-09-25 08:49 | Emergency (ER) | payer BC ==
[2023-09-25 09:14] VITALS: BP 112/82; PULSE 100
== END 2023-09-25 10:23 | disposition home or self-care (01) ==
LOC: DL.ED 08:49
DX: J01.40 Acute pansinusitis, unspecified (principal); I10 Essential (primary) hypertension; K21.9 Gastro-esophageal reflux disease without esophagitis; Z88.0 Allergy status to penicillin; Z88.1 Allergy status to other antibiotic agents; Z79.899 Other long term (current) drug therapy
CPT/HCPCS: 99283

== ENCOUNTER 2023-09-27 05:49 | Inpatient (IN) | payer BC ==
[2023-09-27 06:24] LABS: HEMATOCRIT 39.5 % (37.0-47.0); HEMOGLOBIN 12.6 g/dL (12.0-16.0); MEAN CORPUSCULAR HEMOGLOBIN 29.9 pg (27.0-34.0); MEAN CORPUSCULAR HGB CONC 31.9 g/dL (33.0-35.0); MEAN CORPUSCULAR VOLUME 93.8 fL (80-100); PLATELET COUNT,PLT 330 10^3/uL (150-450); RED BLOOD CELL COUNT 4.21 10^6/uL (4.2-5.4); WHITE BLOOD CELL COUNT,WBC 13.2 10^3/uL (5.0-10.0)
[2023-09-27 06:26] LABS: BASOPHILS PERCENT AUTO 0.3 % (0.0-1.0); EOSINOPHILS PERCENT AUTO 0.3 % (1.0-3.0); LYMPHOCYTES PERCENT AUTO 15.2 % (20.5-50.1); MONOCYTES PERCENT AUTO 14.6 % (2-8); NEUTROPHILS PERCENT AUTO 69.6 % (42.2-75.2)
[2023-09-27] MEDS: Albuterol/Ipratropium 3.0-0.5 MG/3 ML Neb Soln NEB ONE ×2 (06:28→07:39)
[2023-09-27] MEDS: Sodium Chloride 0.9% 10 ML Syringe FLUSH PRN (06:29)
[2023-09-27] MEDS: Ondansetron 4 MG/2 ML SDV IVPUSH ONE (06:32)
[2023-09-27 06:54] LABS: ALBUMIN 3.2 g/dL (3.4-5.0); ANION GAP 23.9 mEq/L (7-13); BILIRUBIN TOTAL 0.5 mg/dL (0.2-1.0); BUN/CREATININE RATIO 13.7 (No establ ref range); CREATININE 3.22 mg/dL (0.55-1.02); EST CRCL DRUG DOSING (CG) 15.42 mL/min; POTASSIUM,K 4.9 mmol/L (3.5-5.1); PROTEIN TOTAL,TP 8.5 g/dL (6.4-8.2)
[2023-09-27 07:00] LABS: A/G RATIO 0.6
[2023-09-27 07:01] LABS: CORONAVIRUS COVID-19 NAA NEGATIVE (NEGATIVE); INFLUENZA A NAA NEGATIVE (NEGATIVE); INFLUENZA B NAA NEGATIVE (NEGATIVE); RESPIRATORY SYNCYTIAL VIR NAA NEGATIVE (NEGATIVE)
[2023-09-27] MEDS: Sodium Chloride 0.9% 1,000 ML IV SCH (07:25)
[2023-09-27] MEDS: methylPREDNISolone Sodium Succinate 125 MG/2 ML SDV IVPUSH ONE (07:43)
[2023-09-27 08:03] LABS: B-TYPE NATRIURETIC PEPTIDE,BNP 17 pg/ml (0-100)
[2023-09-27 08:28] LABS: BAND PERCENT MAN 12 %; EOSINOPHILS PERCENT MAN 1 % (1-3); LYMPHOCYTES PERCENT MAN 21 % (20-50); MONOCYTES PERCENT MAN 12 % (2-8); SEG NEUTROPHILS PERCENT MAN 54 % (42-75)
[2023-09-27] MEDS ORDERED: HYDROmorphone 0.5 MG/0.5 ML Syringe IVPUSH PRN (09:41)
[2023-09-27] MEDS ORDERED: Acetaminophen/oxyCODONE 325-5 MG Tab PO PRN (09:41)
[2023-09-27] MEDS ORDERED: Naloxone 2 MG/2 ML Syringe IVPUSH PRN (09:41)
[2023-09-27] MEDS ORDERED: Polyethylene Glycol 3350 Powder 17 GM Packet PO PRN (09:41)
[2023-09-27] MEDS ORDERED: Magnesium Hydroxide 400 MG/5 ML Susp 30 ML Cup PO PRN (09:41)
[2023-09-27] MEDS ORDERED: Sennosides/Docusate Sodium 50-8.6 MG Tab PO PRN (09:41)
[2023-09-27] MEDS ORDERED: Albuterol/Ipratropium 3.0-0.5 MG/3 ML Neb Soln NEB PRN ×2 (09:41→12:06)
[2023-09-27] MEDS ORDERED: Non-Formulary Medication 1 Each (Levalbuterol Tartrate [Xopenex Hfa] 15 GM Inhaler) SCH (09:45)
[2023-09-27] MEDS ORDERED: ALENDRONATE 5 MG PO SCH (09:45)
[2023-09-27] MEDS ORDERED: 50% Dextrose in Water 50 ML Syringe IVPUSH PRN (09:47)
[2023-09-27] MEDS ORDERED: Glucagon,Human Recombinant 1 MG Vial IM PRN (09:47)
[2023-09-27] MEDS: Benzonatate 100 MG Cap PO SCH (10:25)
[2023-09-27] MEDS: Acetaminophen 325 MG Tab PO PRN (10:25)
[2023-09-27] MEDS: methylPREDNISolone Sod Succ 125 MG in Sodium Chloride 0.9% 100 ML IV ONE (10:28)
[2023-09-27] MEDS: Formoterol/Mometasone 200-5 MCG 8.8 GM Inhaler IH SCH ×2 (11:01→17:29)
[2023-09-27] MEDS: Insulin Lispro 100 Units/ML 3 ML Vial SUBCUT SCH (12:14)
[2023-09-27] MEDS ORDERED: Albuterol 6.7 GM Inhaler INH PRN (12:37)
[2023-09-27] MEDS ORDERED: ALENDRONATE 35 MG PO SCH (12:39)
[2023-09-27] MEDS: Scopalamine 1mg/3day Transdermal Patch TOP ONE (12:58)
[2023-09-27] MEDS: diphenhydrAMINE 50 MG/ML SDV IVPUSH ONE (12:58)
[2023-09-27] MEDS: Gabapentin 400 MG Cap PO SCH (13:01)
[2023-09-27] MEDS: Magnesium Oxide 400 MG Tab PO SCH (13:02)
[2023-09-27] MEDS: Calcitriol 0.25 MCG Cap PO SCH (13:02)
[2023-09-27] MEDS: Omeprazole 20 MG Cap.CR PO SCH (13:02)
[2023-09-27] MEDS: methylPREDNISolone Sodium Succinate 125 MG/2 ML SDV IVPUSH SCH ×2 (13:29→16:45)
[2023-09-27] MEDS: Meropenem 1 GM SDV IVPUSH ONE (18:35)
[2023-09-27] MEDS: Levofloxacin/Dextrose 5%-Water 250 MG in Premix Bag 1 BAG IV ONE (18:39)
[2023-09-27] MEDS: Codeine/guaiFENesin 10-100 MG/5 ML Syrup 5 ML Cup PO PRN (18:51)
[2023-09-27] MEDS: Insulin Glarg,Human.Rec.Analog 100 Unit/ML 10 ML Vial SUBCUT SCH (20:48)
[2023-09-27] MEDS: Ipratropium 0.02% 0.5 MG/2.5 ML Neb Soln NEB SCH (20:50)
[2023-09-27] MEDS: Loratadine 10 MG Tab PO SCH (20:53)
[2023-09-27] MEDS: Sodium Bicarbonate 650 MG Tab PO SCH (20:53)
[2023-09-27] MEDS: Temazepam 15 MG Cap PO PRN (20:54)
[2023-09-27] MEDS ORDERED: Meropenem 1 GM SDV IVPUSH SCH (21:00)
[2023-09-27] MEDS ORDERED: AZELASTINE HCL NAS SCH (21:00)
[2023-09-27] MEDS ORDERED: Benzocaine/Cetylpyridinium/Menthol Lozenge MUCMEM PRN (22:12)
[2023-09-28] MEDS: Benzonatate 100 MG Cap ONE (00:23)
[2023-09-28] MEDS: cefTRIAXone 2 GM Vial IVPUSH ONE (04:10)
[2023-09-28 06:32] LABS: HEMATOCRIT 35.2 % (37.0-47.0); HEMOGLOBIN 11.3 g/dL (12.0-16.0); MEAN CORPUSCULAR HEMOGLOBIN 29.6 pg (27.0-34.0); MEAN CORPUSCULAR HGB CONC 32.1 g/dL (33.0-35.0); MEAN CORPUSCULAR VOLUME 92.1 fL (80-100); PLATELET COUNT,PLT 292 10^3/uL (150-450); RED BLOOD CELL COUNT 3.82 10^6/uL (4.2-5.4); WHITE BLOOD CELL COUNT,WBC 6.8 10^3/uL (5.0-10.0)
[2023-09-28 06:37] LABS: LYMPHOCYTES PERCENT AUTO 19.2 % (20.5-50.1); MONOCYTES PERCENT AUTO 6.5 % (2-8); NEUTROPHILS PERCENT AUTO 74.3 % (42.2-75.2)
[2023-09-28 06:54] LABS: ALBUMIN 2.9 g/dL (3.4-5.0); ANION GAP 17.6 mEq/L (7-13); BILIRUBIN TOTAL 0.2 mg/dL (0.2-1.0); BUN/CREATININE RATIO 15.2 (No establ ref range); CALCIUM 8.6 mg/dL (8.5-10.1); CREATININE 2.7 mg/dL (0.55-1.02); EST CRCL DRUG DOSING (CG) 18.39 mL/min; MAGNESIUM 1.6 mg/dL (1.8-2.4); POTASSIUM,K 5.6 mmol/L (3.5-5.1); PROTEIN TOTAL,TP 7.9 g/dL (6.4-8.2)
[2023-09-28 06:55] LABS: A/G RATIO 0.58
[2023-09-28 08:09] LABS: BAND PERCENT MAN 13 %; LYMPHOCYTES PERCENT MAN 16 % (20-50); MONOCYTES PERCENT MAN 6 % (2-8); SEG NEUTROPHILS PERCENT MAN 64 % (42-75)
[2023-09-28] MEDS ORDERED: cefTRIAXone 1 GM Vial IVPUSH SCH (09:00)
[2023-09-28] MEDS ORDERED: Levofloxacin/Dextrose 5%-Water 250 MG in Premix Bag 1 BAG IV SCH (09:00)
[2023-09-28] MEDS: Losartan 25 MG Tab PO SCH (09:10)
[2023-09-28] MEDS: Montelukast 10 MG Tab PO SCH (09:10)
[2023-09-28] MEDS: Fludrocortisone 0.1 MG Tab PO SCH (09:11)
[2023-09-28] MEDS: Multivitamin Tab PO SCH (09:11)
[2023-09-28] MEDS: Azithromycin 500 MG in Sodium Chloride 0.9% 250 ML IV SCH (09:12)
[2023-09-28] MEDS: Magnesium Sulfate/Water 2 GM in Premix Bag 1 BAG IV ONE (09:35)
[2023-09-28] MEDS ORDERED: Patient's Own Medication 1 Each INH PRN (10:40)
[2023-09-28] MEDS ORDERED: Meropenem 1 GM SDV IVPUSH SCH (21:00)
[2023-09-28] MEDS: Ipratropium 0.02% 0.5 MG/2.5 ML Neb Soln NEB SCH (21:06)
[2023-09-28] MEDS: Benzonatate 100 MG Cap PO PRN (21:12)
[2023-09-28] MEDS: Saccharomyces Boulardii (Probiotic) 250 MG Cap PO SCH (21:13)
[2023-09-29 06:29] LABS: BASOPHILS PERCENT AUTO 0.1 % (0.0-1.0); HEMATOCRIT 35.2 % (37.0-47.0); HEMOGLOBIN 11.5 g/dL (12.0-16.0); LYMPHOCYTES PERCENT AUTO 14.1 % (20.5-50.1); MEAN CORPUSCULAR HGB CONC 32.7 g/dL (33.0-35.0); MEAN CORPUSCULAR VOLUME 91.9 fL (80-100); MONOCYTES PERCENT AUTO 6.2 % (2-8); NEUTROPHILS PERCENT AUTO 79.6 % (42.2-75.2); PLATELET COUNT,PLT 339 10^3/uL (150-450); RED BLOOD CELL COUNT 3.83 10^6/uL (4.2-5.4); WHITE BLOOD CELL COUNT,WBC 12.4 10^3/uL (5.0-10.0)
[2023-09-29 06:46] LABS: A/G RATIO 0.6; ALBUMIN 2.9 g/dL (3.4-5.0); BILIRUBIN TOTAL 0.2 mg/dL (0.2-1.0); BUN/CREATININE RATIO 19.5 (No establ ref range); CALCIUM 9.1 mg/dL (8.5-10.1); CREATININE 2.67 mg/dL (0.55-1.02); EST CRCL DRUG DOSING (CG) 18.6 mL/min; MAGNESIUM 2.4 mg/dL (1.8-2.4); PROTEIN TOTAL,TP 7.7 g/dL (6.4-8.2)
[2023-09-29] MEDS: Levofloxacin/Dextrose 5%-Water 250 MG in Premix Bag 1 BAG IV SCH (08:13)
[2023-09-29 12:13] VITALS: BP 133/94; PULSE 70
== END 2023-09-29 13:45 | disposition home or self-care (01) | DRG 113 ==
LOC: DL.ED 05:49 → DL.MS 08:06
PROVIDERS: ADMIT Internal Medicine; ATTEND Internal Medicine
DX: J01.90 Acute sinusitis, unspecified (principal); J44.1 Chronic obstructive pulmonary disease with (acute) exacerbation; J96.21 Acute and chronic respiratory failure with hypoxia; E78.00 Pure hypercholesterolemia, unspecified; M32.9 Systemic lupus erythematosus, unspecified; L98.3 Eosinophilic cellulitis [Wells]; K21.9 Gastro-esophageal reflux disease without esophagitis; N18.4 Chronic kidney disease, stage 4 (severe); I12.9 Hypertensive chronic kidney disease with stage 1 through stage 4 chronic kidney disease, or unspecified chronic kidney disease; E11.65 Type 2 diabetes mellitus with hyperglycemia; D72.829 Elevated white blood cell count, unspecified; E87.5 Hyperkalemia; E83.42 Hypomagnesemia; Z88.0 Allergy status to penicillin; Z88.8 Allergy status to other drugs, medicaments and biological substances; Z79.899 Other long term (current) drug therapy; Z87.19 Personal history of other diseases of the digestive system; Z86.16 Personal history of COVID-19; Z98.49 Cataract extraction status, unspecified eye; Z98.890 Other specified postprocedural states; Z90.89 Acquired absence of other organs
CPT/HCPCS: 0241U; 36415; 71045; 80053; 82947; 83605; 83735; 83880; 84484; 85025; 86140; 87040; 87798; 93005; 93010; 94640; 94664; 96361; 96374; 96375; 99223; 99232; 99284; 99285-25; A9270-GY; J0456; J1200; J1815-GY; J1956; J2185; J2405; J2930; J3475; J3490; J7030; J7050; J7620-GY

== ENCOUNTER 2024-03-07 05:54 | Emergency (ER) | payer BC ==
[2024-03-07] MEDS ORDERED: Sodium Chloride 0.9% 10 ML Syringe FLUSH PRN (05:58)
[2024-03-07 06:27] LABS: HEMATOCRIT 31.5 % (37.0-47.0); HEMOGLOBIN 9.9 g/dL (12.0-16.0); MEAN CORPUSCULAR HGB CONC 31.4 g/dL (33.0-35.0); MEAN CORPUSCULAR VOLUME 95.5 fL (80-100); PLATELET COUNT,PLT 278 10^3/uL (150-450); WHITE BLOOD CELL COUNT,WBC 24.7 10^3/uL (5.0-10.0)
[2024-03-07 06:36] LABS: BASOPHILS PERCENT AUTO 0.1 % (0.0-1.0); EOSINOPHILS PERCENT AUTO 0.8 % (1.0-3.0); LYMPHOCYTES PERCENT AUTO 5.6 % (20.5-50.1); MONOCYTES PERCENT AUTO 4.3 % (2-8); NEUTROPHILS PERCENT AUTO 89.2 % (42.2-75.2)
[2024-03-07 06:49] LABS: LACTIC ACID 2.9 mmol/L (0.4-2.0)
[2024-03-07 06:54] LABS: ALBUMIN 3.1 g/dL (3.4-5.0); ANION GAP 17.2 mEq/L (7-13); BILIRUBIN TOTAL 0.3 mg/dL (0.2-1.0); BUN/CREATININE RATIO 18.4 (No establ ref range); C-REACTIVE PROTEIN 2.77 ng/dL (<=0.50); CALCIUM 9.8 mg/dL (8.5-10.1); CREATININE 3.54 mg/dL (0.55-1.02); EST CRCL DRUG DOSING (CG) 13.87 mL/min; POTASSIUM,K 4.2 mmol/L (3.5-5.1)
[2024-03-07] MEDS: Sodium Chloride 0.9% 1,000 ML IV ONE ×3 (06:54→09:09)
[2024-03-07 07:00] LABS: A/G RATIO 0.79
[2024-03-07 07:02] LABS: MAGNESIUM 0.8 mg/dL (1.8-2.4)
[2024-03-07] MEDS: Magnesium Sulfate/Water Premix 4 GM in Premix Bag 1 BAG IV ONE (07:07)
[2024-03-07 07:27] LABS: BAND PERCENT MAN 6 %; LYMPHOCYTES PERCENT MAN 8 % (20-50); MONOCYTES PERCENT MAN 2 % (2-8); SEG NEUTROPHILS PERCENT MAN 84 % (42-75)
[2024-03-07] MEDS: Levofloxacin/Dextrose 5%-Water 250 MG in Premix Bag 1 BAG IV ONE (08:09)
[2024-03-07 08:57] LABS: APPEARANCE,URINE CLEAR (CLEAR); BILIRUBIN,URINE NEGATIVE (NEGATIVE); COLOR,URINE YELLOW (YELLOW); GLUCOSE,URINE NEGATIVE (NEGATIVE); KETONES,URINE NEGATIVE (NEGATIVE); LEUKOCYTE ESTERASE,URINE SMALL (NEGATIVE); NITRITE,URINE NEGATIVE (NEGATIVE); OCCULT BLOOD,URINE NEGATIVE (NEGATIVE); PH,URINE 5.5 (5.0-9.0); PROTEIN,URINE 30 (NEGATIVE); UROBILINOGEN,URINE 0.2 mg/dL (0.2-1.0)
[2024-03-07 09:08] VITALS: BP 75/59; PULSE 109
[2024-03-07] MEDS: Ondansetron 4 MG/2 ML SDV IVPUSH ONE (09:09)
[2024-03-07 09:30] LABS: BACTERIA,URINE FEW /HPF (0-FEW/HPF); EPITHELIAL CELLS,URINE MODERATE /HPF (NOT SEEN); RBC,URINE 0-5 /HPF (0-5)
[2024-03-07] MEDS: Dexamethasone 4 MG/ML SDV IVPUSH ONE (09:51)
[2024-03-07] MEDS: Levofloxacin/Dextrose 5%-Water 500 MG in Premix Bag 1 BAG IV ONE (09:53)
== END 2024-03-07 10:54 ==
LOC: DL.ED 05:54
DX: J18.9 Pneumonia, unspecified organism (principal); I10 Essential (primary) hypertension; E78.00 Pure hypercholesterolemia, unspecified; Z86.16 Personal history of COVID-19; Z79.899 Other long term (current) drug therapy; Z79.4 Long term (current) use of insulin; Z88.0 Allergy status to penicillin; Z88.8 Allergy status to other drugs, medicaments and biological substances
CPT/HCPCS: 36415; 71045; 80053; 81001; 83605; 83735; 84145; 84484; 85025; 86140; 87040; 87086; 87635; 87804; 93005; 93010; 96361; 96365; 96366; 96368; 96375; 99284; 99285; J1100; J1956; J2405; J3475; J7030; U0002